=== PATIENT | female | born 1955 | race Caucasian/White ===

== ENCOUNTER 2017-04-29 15:20 | Emergency (ER) | payer OTHER | END 2017-04-29 16:03 | disposition left against medical advice (07) | LOC: UCCORT 15:20 | DX: M25.551 Pain in right hip (principal); Z53.21 Procedure and treatment not carried out due to patient leaving prior to being seen by health care provider ==

== ENCOUNTER 2017-04-29 16:13 | Emergency (ER) | payer OTHER ==
[2017-04-29 16:20] VITALS: BP 134/65
--- NOTE | 2017-04-29 16:51 | UC ---
Hip/Pelvis Pain - HPI Summary HPI Summary: 61 yo female with right hip pain x 1 month no fall leg feels like it may buckle - History Of Current Complaint Chief Complaint: UCLowerExtremity Stated Complaint: RIGHT HIP PAIN Time Seen by Provider: 04/29/17 16:41 Hx Obtained From: Patient Onset/Duration: Gradual Onset, Lasting Weeks Timing: Constant Severity Initially: Severe Severity Currently: Severe Pain Intensity: 10 Pain Scale Used: 0-10 Numeric Location: Discrete At: Character Of Pain: Sharp, Aching Aggravating Factor(s): Movement, Weight Bearing Alleviating Factor(s): Rest Associated Signs And Symptoms: Positive: Negative - Allergies/Home Medications Allergies/Adverse Reactions: Allergies Allergy/AdvReac Type Severity Reaction Status Date / Time Acetaminophen [From Percocet] Allergy Itching Verified 04/29/17 16:20 Carisoprodol [From Soma] Allergy Itching Verified 04/29/17 16:20 Iodinated Contrast Media Allergy Unknown Verified 04/29/17 16:20 [IV CONTRAST DYE] Reaction Details Oxycodone [From Percocet] Allergy Itching Verified 04/29/17 16:20 Home Medications: Home Medications Insulin Glargine [Basaglar Kwikpen] 100 unit SC DAILY 04/29/17 [History Confirmed 04/29/17] PMH/Surg Hx/FS Hx/Imm Hx Previously Healthy: No Endocrine History: Diabetes Cardiovascular History: Hypertension - Surgical History Surgical History: Yes Surgery Procedure, Year, and Place: gallbladder, intestional surgery as an infant, partial hyster, right knee surgery, left ulnar nerve, left carpal tunnel , x 2, thyroidectomy - Family History Known Family History: Positive: Unknown - adopted - Social History Alcohol Use: None Substance Use Type: None Substance Use Comment - Amount & Last Used: nucynta Smoking Status (MU): Former Smoker Type: Cigarettes Amount Used/How Often: ~ 1 ppd Length of Time of Smoking/Using Tobacco: started ~ age 19 Have You Smoked in the Last Year: No When Did the Patient Quit Smoking/Using Tobacco: 2011 Household Exposure Type: Cigarettes - Immunization History Most Recent Influenza Vaccination: fall 2014 Most Recent Pneumonia Vaccination: fall 2014 Review of Systems Constitutional: Negative Skin: Negative Eyes: Negative ENT: Negative Respiratory: Negative Cardiovascular: Negative Gastrointestinal: Negative Genitourinary: Negative Motor: Negative Neurovascular: Negative Musculoskeletal: Arthralgia Neurological: Negative Psychological: Negative All Other Systems Reviewed And Are Negative: Yes Physical Exam Triage Information Reviewed: Yes Appearance: Well-Appearing, No Pain Distress, Well-Nourished Vital Signs: Initial Vital Signs Temp 97.8 F 04/29/17 16:17 Pulse 75 04/29/17 16:17 Resp 17 04/29/17 16:17 BP 134/65 04/29/17 16:17 Pulse Ox 97 04/29/17 16:17 Vital Signs Reviewed: Yes Eyes: Positive: Conjunctiva Clear ENT: Positive: Hearing grossly normal. Negative: Nasal congestion, Nasal drainage, Trismus, Muffled/hoarse voice Dental: Negative: Abscess @ Neck: Positive: Supple Respiratory: Positive: Lungs clear, Normal breath sounds, No respiratory distress, No accessory muscle use Cardiovascular: Positive: RRR, No Murmur Musculoskeletal: Positive: ROM Limited @ - right hip Neurological: Positive: Alert Psychological Exam: Normal Skin Exam: Normal Hip Injury Course/Dx - Differential Dx/Diagnosis Provider Diagnoses: right hip DJD Discharge - Discharge Plan Condition: Stable Disposition: HOME Prescriptions: Naproxen Sodium [Naproxen Sodium 500 MG TAB] 500 mg PO BID PRN #30 tab PRN Reason: Pain Patient Education Materials: Hip Pain (ED), Arthritis (ED) Referrals: Silvia Dallas MD [Medical Doctor] - As Soon As Possible (call and set up an appt )
--- NOTE | 2017-04-29 17:13 | RAD ---
INDICATION: Right hip pain. COMPARISON: Comparison is made with a prior x-ray study of the pelvis and left hip from June 22, 2010. TECHNIQUE: An AP view of the pelvis and frontal and lateral views of the right hip were obtained. FINDINGS: The bones are in normal alignment. No fracture is seen. There is moderate to severe osteoarthritic change in the right hip which is progressed from the prior exam. There is mild osteoarthritic change in the left hip. IMPRESSION: MODERATE TO SEVERE OSTEOARTHRITIC CHANGE IN THE RIGHT HIP.
== END 2017-04-29 17:21 | disposition home or self-care (01) ==
LOC: UCCORT 16:13
DX: M16.11 Unilateral primary osteoarthritis, right hip (principal); M25.551 Pain in right hip; E11.9 Type 2 diabetes mellitus without complications; Z79.4 Long term (current) use of insulin; I10 Essential (primary) hypertension; Z90.49 Acquired absence of other specified parts of digestive tract; Z90.711 Acquired absence of uterus with remaining cervical stump; E89.0 Postprocedural hypothyroidism; Z88.5 Allergy status to narcotic agent; Z88.6 Allergy status to analgesic agent; Z91.041 Radiographic dye allergy status; Z87.891 Personal history of nicotine dependence
CPT/HCPCS: 99212; G0463

== ENCOUNTER 2018-06-08 07:58 | Inpatient (IN) | payer OTHER ==
--- NOTE | 2018-05-26 16:43 | HP ---
HISTORY AND PHYSICAL: DATE OF ADMISSION: 06/08/18 Upcoming hospital admission 06/08/18 for right total hip replacement. CHIEF COMPLAINT: Right hip region pain. HISTORY OF PRESENT ILLNESS: This nice 62-year-old woman with adult onset of diabetes and chronic pain and several other medical problems, who has had severe arthritis of the right hip with pain, marked limitation of walking distance, she goes less than a block, marked difficulty with stairs and difficulty with sleep over the past year. We had surgery scheduled for 3 to 4 weeks ago, this was canceled because of multiple skin lesions, they were in a weeping stage and not healed. She has been at home keeping these cleaned with soap and water. She knows things healed slowly for her because of her diabetes. Her right total hip replacement has been recommended. PAST MEDICAL HISTORY: She is cared for by Dr. Suresh, [facility]. She has had asthma and possibly COPD, arthritis, type 2 diabetes, diverticulitis, hypothyroid, anxiety, and depression. PAST SURGICAL HISTORY: Cholecystectomy, , left elbow ulnar nerve transposition, knee meniscus surgery, thyroid surgery in 1977, and an intestinal blockage, infancy. DAILY MEDICATIONS: Include: 1. Insulin when needed. 2. Gabapentin 600 mg 3 times a day. 3. Vitamin D3 5000 once a day. 4. Voltaren cream to the knee twice daily. 5. Prazosin 1 mg each at bedtime. 6. Lasix 20 mg each at bedtime. 7. Thyroid replacement, the total dosage is 225 mcg per day. 8. Duloxetine 30 mg each day. 9. Vitamin B12. 10. Magnesium oxide. 11. Metformin 500 mg each day. 12. Ranitidine 150 mg each day. 13. The total dosage on the metformin is 500 mg once a day and a 1000 mg once a day. 14. Alprazolam 1 mg every 8 hours as needed for anxiety. 15. Dicyclomine 10 mg 1 to 2 twice daily. 16. Lovastatin 40 mg each at bedtime. 17. Methocarbamol 500 mg once twice a day. 18. Naproxen 500 mg twice a day. 19. Ventolin inhaler as needed. 20. Tylenol Arthritis. ALLERGIES: SOMA, IODINE, CORTISONE, CYCLOBENZAPRINE, and OXYCODONE. FAMILY HISTORY: Not known to the patient. She was adopted. SOCIAL HISTORY: Lives with family, however, recently a 17-year-old granddaughter, who lived with her for many years, left to live with her former and this was very depressing for the patient. The patient is disabled and retired data control assistant for 17 years. Of note, quit smoking 4 years ago. No alcohol use. Occasional walker. She enjoys cooking and cross stitch. She is right handed. REVIEW OF SYSTEMS: Positive for chronic back pain, diarrhea, fatigue, depression, and anxiety. PHYSICAL EXAMINATION GENERAL: She is overweight. She is not acutely distressed at rest. She has antalgic gait on the right. The cranial nerves are grossly intact. HEENT: Tongue is midline. LUNGS: Clear bilaterally. HEART: Regular. S1, S2 normal. No murmurs or gallops. ABDOMEN: Round, soft, nontender. There is no organomegaly. EXTREMITIES: The right hip has painful range of motion with painful straight leg raising, painful sideline leg raising. Right hip flexion limited to 80 degrees with pain external rotation, 20 degrees with pain internal rotation, neutral was pain. The foot pulse intact. DIAGNOSTIC STUDIES: Radiographs show severe arthritis of the right hip. IMPRESSION: Severe arthritis of the right hip. The patient has multiple medical problems. PLAN: Right total hip replacement. [id number]/[facility] #: [id number] [facility] CENT[facility]ad[facility]
[~2018-06-08 07:58] MED LIST: Buffered Lidocaine 0.9% SYRIN* 5 ML/SYR SYRINGE INTRADERM ONE; Famotidine IV* 10 MG/ML 2 ML (20 mg) IV ONE
--- OUTSIDE RECORDS SUMMARY | 2018-06-08 08:03 | XMS REPORT ---
:1955 External Reference #:[id number] Author Organization [facility] Address [address] [place] [address] Phone [phone] Care Team Providers Name Role Phone Lee Suresh DO Primary Care Physician Unavailable Payers Type Date Identification Numbers Payment Provider Subscriber Commercial Policy Number: [id number] [place] Saima Cheek PayID: [id number] [address] [place] [id number] Problems Date Description Provider Status Onset: 05/12/2017 Localized, primary osteoarthritis of the Silvia Dallas MD Active pelvic region and thigh Family History Date Family Member(s) Problem(s) Comments General No Current Problems Social History Type Date Description Comments Marital Status Marital Status 2 Times Lives With Occupation Disabled Cigarette Use Former Cigarette Smoker ETOH Use Denies alcohol use Smoking Patient is a former smoker Recreational Drug Use Denies Drug Use Daily Caffeine Consumes on average 2 cups of regular coffee per day Daily Caffeine Consumes on average 2 sodas per day Exercise Type/Frequency Exercises sporadically Allergies, Adverse Reactions, Alerts Date Description Reaction Status Severity Comments 05/12/2017 Soma active 05/12/2017 Iodine active 05/12/2017 Cortisone active 05/12/2017 Cyclobenzaprine active 07/08/2017 Oxycodone active 07/08/2017 Acetaminophen active Medications Medication Date Status Form Strength Qnty SIG Indications Ordering Provider Shower Chair 05/05/ Active Misc 1unit Dirk 2017 s Kaelyn Cespedes Wheeled Walker 04/14/ Active M16.11 Dirk With Brakes And A Cheko Hilario M.D. / Active Solution 100Unit/ML 150 units Unknown 0000 Pen-Inject once daily Gabapentin / Active Tablets 600mg 1 by Unknown 0000 mouth 3 times daily Vitamin D3 / Active Tablets 5000 one by Unknown 0000 mouth once daily Diclofenac Sodium / Active Gel 1% apply 2 Unknown 0000 grams toknee twice daily Prazosin HCL / Active Capsules 1mg 1 tab by Unknown 0000 mouth every night at bedtime Furosemide / Active Tablets 20mg 1 by Unknown 0000 mouth every day prn Levothyroxine / Active Tablets 50mcg 1 by Unknown Sodium 0000 mouth every day with 200 mcg Duloxetine HCL / Active Caps DR 30mg take 2 Unknown 0000 Part capsule by mouth every day Vitamin B12 / Active Tablets ER 1000mcg 1 by Unknown 0000 mouth every day Magnesium Oxide / Active Tablets 250mg 2 by Unknown -MG Supplement 0000 mouth every day Ra / Active Tablets ER 1 tab Unknown B-Complex/Vitamin 0000 twice C CR daily Metformin HCL / Active Tablets 500mg 1 by Unknown 0000 mouth every day Ranitidine HCL / Active Capsules 150mg 1 by Unknown 0000 mouth everyday Levothyroxine / Active Tablets 200mcg take 1 Unknown Sodium 0000 tablet everyday with the 25 mcg Metformin HCL / Active Tablets 1000mg 1 by Unknown 0000 mouth twice a day Alprazolam / Active Tablets 1mg take 1 Unknown 0000 tab eery 8 hours prn anxiety Dicyclomine HCL / Active Capsules 10mg 1-2 caps Unknown 0000 twice daily w MDD 3 Lovastatin / Active Tablets 40mg take one Unknown 0000 tablet by mouth at bedtime Methocarbamol / Active Tablets 500mg 1 by Unknown 0000 mouth twice a day Naproxen DR / Active Tablets DR 500mg take 1 Unknown 0000 tablet twice a day as needed for pain Ibuprofen / Active Tablets 800mg Unknown 0000 Ventolin HFA / Active Aerosol 108(90Base Unknown 0000 ) mcg/Act Tylenol Arthritis / Active Tablets ER 650mg prn Unknown Pain 0000 Levocetirizine / Hx Tablets 5mg 1 by Unknown Dihydrochloride 0000 - mouth 12/30/ every day 2018 Betamethasone / Hx Ointment apply Unknown Dipropionate 0000 - twice daily to 2018 affected areas Nucynta ER 00/ Hx Tablets ER 50mg 1 by Unknown 0000 - 12HR mouth 8 2018 hour prn Insulin Glargine / Hx 10 u sc Unknown 0000 - daily 2017 Medications Administered in Office Medication Date Status Form Strength Qnty SIG Indications Ordering Provider Inj, Administered Injection Shaka Flowers Regadenoson, 018 Kaelyn [place]isle 0.1 MG Technetium TC Administered Injection Shaka D. 99M 018 Kaelyn Carlisle Tetrofosmin, Per Unit Dose Up To 40 Millicuries Vital Signs Date Vital Result Comment 05/26/2018 Height 64 inches 5'4" Weight 251.00 lb BP Systolic 132 mmHg BP Diastolic 74 mmHg Respiratory Rate 18 /min Body Temperature 97.1 F Pain Level 8 BMI (Body Mass Index) 43.1 kg/m2 04/14/2018 Height 64 inches 5'4" Weight 263.00 lb BP Systolic 128 mmHg BP Diastolic 80 mmHg Respiratory Rate 20 /min Body Temperature 97.4 F Pain Level 10 BMI (Body Mass Index) 45.1 kg/m2 03/31/2018 Height 64 inches 5'4" Weight 242.00 lb w/o shoes Heart Rate 72 /min BP Systolic 100 mmHg Rue, lg cuff BP Diastolic 74 mmHg Rue, lg cuff BP Systolic Sitting 114 mmHg Lue, lg cuff BP Diastolic Sitting 74 mmHg Lue, lg cuff BP Systolic Standing 104 mmHg Lue BP Diastolic Standing 80 mmHg Lue Respiratory Rate 16 /min BMI (Body Mass Index) 41.5 kg/m2 01/11/2018 Height 64 inches 5'4" Weight 249.00 lb BP Systolic 120 mmHg BP Diastolic 68 mmHg Respiratory Rate 20 /min Pain Level 2 BMI (Body Mass Index) 42.7 kg/m2 11/09/2017 Height 64 inches 5'4" Heart Rate 75 /min BP Systolic 116 mmHg BP Diastolic 70 mmHg Respiratory Rate 17 /min Body Temperature 97.6 F Pain Level 2 06/05/2017 Height 64 inches 5'4" Weight 249.00 lb Heart Rate 83 /min BP Systolic 109 mmHg BP Diastolic 65 mmHg BMI (Body Mass Index) 42.7 kg/m2 05/12/2017 Height 64 inches 5'4" Weight 249.00 lb Heart Rate 76 /min BP Systolic 150 mmHg BP Diastolic 79 mmHg Body Temperature 97.1 F BMI (Body Mass Index) 42.7 kg/m2 Results Test Date Test Result H/L Range Note Basic Metabolic Panel 04/14/2018 Sodium 138 mmol/L 135-145 Potassium 4.6 mmol/L 3.5-5.0 Chloride 101 mmol/L 101-111 Co2 Carbon Dioxide 26 mmol/L 22-32 Anion Gap 11 mmol/L 2-11 Glucose 117 mg/dL High 70-100 Blood Urea Nitrogen 24 mg/dL 6-24 Creatinine 0.92 mg/dL 0.51-0.95 BUN/Creatinine Ratio 26.1 High 8-20 Calcium 9.8 mg/dL 8.6-10.3 Egfr Non- 61.7 >60 Egfr 74.6 >60 1 Inr/Protime 04/14/2018 Inr 0.88 0.77-1.02 Laboratory test finding 04/14/2018 Partial Thrombo Time 35.9 seconds 26.0 -36.3 PTT Type & Screen 04/14/2018 Patient Blood Type O Positive Antibody Screen NEGATIVE Laboratory test finding 04/14/2018 TSH (Thyroid Stim 29.02 mcIU/mL High 0.34-5.60 Horm) 1 Because ethnic data is not always readily available, this report includes an eGFR for both -Americans and non- Americans. The National Kidney Disease Education Program (NKDEP) does not endorse the use of the MDRD equation for patients that are not between the ages of 18 and 70, are , have extremes of body size, muscle mass, or nutritional status, or are non- or non-. According to the National Kidney Foundation, irrespective of diagnosis, the stage of the disease is based on the level of kidney function: Stage Description GFR(mL/min/1.73 m(2)) 1 Kidney damage with normal or decreased GFR 90 2 Kidney damage with mild decrease in GFR 60-89 3 Moderate decrease in GFR 30-59 4 Severe decrease in GFR 15-29 5 Kidney failure <15 (or dialysis) Procedures Date CPT Code Description Status 04/16/2018 90787 Stress Test Completed 04/16/2018 00233 Myocardial Perfusion Imaging Tomographic (Spect) Completed Multiple Studies 04/06/2018 83834 ECHO Transthoracic, Real-Time 2D With Doppler And Color Completed Flow 04/06/2018 18250 ECHO Transthoracic, Real-Time 2D With Doppler And Color Completed Flow 03/31/2018 49523 EKG Tracing & Interpretation Completed Encounters Type Date Location Provider CPT E/M Dx Office Visit 03/31/2018 [facility] [place], [address]809 Z01.810 2:00p Leonardo Art R06.02 M16.11 Office Visit 01/11/2018 2:15p [facility] Cesped[facility] M.D. 46462 M16.11 [facility] Office Visit 11/09/2017 1:30p [facility] Cesped[facility] M.D. 80493 M17.11 [facility] M17.12 Office Visit 06/05/2017 1:30p [facility] Dia Orr M.D. 41847 M16.11 [facility] M25.551 Office Visit 05/12/2017 1:30p [facility] [place] [address] M16.11 [facility] Plan of Care Future Appointment(s):07/07/2018 2:15 pm - Vikram Cespedes M.D. at [facility]05/26/2018 - Vikram Cespedes M.D.M16.11 Unilateral primary osteoarthritis, right hipFollow up:Follow up: Right total hip 06/08/18
[2018-06-08] MEDS ORDERED: Famotidine IV* 10 MG/ML 2 ML (20 mg) ONE (08:11)
[2018-06-08] MEDS ORDERED: ceFAZolin 2 GM in NS PREMIX(*) 2 GM/100 ML BAG IVPB ONE (08:11)
[2018-06-08] MEDS ORDERED: fentaNYL* 50 MCG/ML 2 ML VIAL (100 MCG VIAL) ONE ×3 (08:30→11:21)
[2018-06-08] MEDS ORDERED: Midazolam* 1 MG/ML 5 ML VIAL (5 MG) ONE (08:30)
[2018-06-08] MEDS ORDERED: KETAMINE HCL* 50 MG/ML 10 ML VIAL ONE (09:42)
[2018-06-08] MEDS ORDERED: DiMENhydriNATE IV* 50 MG/ML VIAL ONE (10:12)
[2018-06-08] MEDS ORDERED: Succinylcholine* 20 MG/ML 10 ML VIAL ONE (10:12)
[2018-06-08] MEDS ORDERED: EPHEDrine (Pressors)* 50 MG/ML VIAL ONE (10:12)
[2018-06-08] MEDS ORDERED: Ketorolac INJ* 30 MG/ML 1 ML VIAL ONE (10:12)
[2018-06-08] MEDS ORDERED: Propofol* 10 MG/ML 20 ML BTL IV PUSH ONE (10:12)
[2018-06-08] MEDS ORDERED: Ondansetron INJ* 2 MG/ML VIAL ONE (10:12)
[2018-06-08] MEDS ORDERED: Acetaminophen IV 1GM/100ML * 1,000 MG/100 ML VIAL IVPB ONE (11:17)
[2018-06-08] MEDS ORDERED: DiMENhydriNATE IV* 50 MG/ML VIAL IV PUSH PRN (11:17)
[2018-06-08] MEDS ORDERED: diPHENhydraMINE IV* 50 MG/ML 1 ml VIAL (BENADRYL) IV PRN ×2 (11:17→13:05)
[2018-06-08] MEDS ORDERED: Naloxone* 0.4 MG/ML 1 ML VIAL IV PRN (11:17)
[2018-06-08] MEDS ORDERED: hydrALAZINE IV* 20 MG/ML VIAL ONE (11:19)
[2018-06-08] MEDS ORDERED: Gabapentin CAP(*) 300 MG PO ONE (11:27)
[2018-06-08] MEDS ORDERED: Bupivacaine 0.25% EPI 200,000* 30 ML SDV ONE (12:37)
[2018-06-08] MEDS ORDERED: Ondansetron ODT TAB* 4 MG PO PRN (13:05)
[2018-06-08] MEDS ORDERED: Morphine INJ* 4 MG/ML 1 ML SYRINGE (NEW SYRINGE VERSION) IV PRN (13:05)
[2018-06-08] MEDS ORDERED: Cyclobenzaprine TAB* 10 MG PO PRN (13:05)
[2018-06-08] MEDS ORDERED: Magnesium Hydroxide LIQ* 30 ML UDC PO PRN (13:05)
[2018-06-08] MEDS ORDERED: Ondansetron INJ* 2 MG/ML VIAL IV PRN (13:05)
[2018-06-08] MEDS ORDERED: diPHENhydraMINE PO* 25 MG PO PRN (13:05)
[2018-06-08] MEDS ORDERED: Acetaminophen IV 1GM/100ML * 100 ML ONE (13:10)
[2018-06-08] MEDS ORDERED: Ketorolac INJ* 15 MG/ML 1 ML VIAL IV PUSH PRN (13:33)
[2018-06-08] MEDS ORDERED: Gabapentin CAP(*) 300 MG ONE (13:34)
[2018-06-08] MEDS ORDERED: HYDROmorphone INJ1* 1 MG/ML SYRINGE ONE (13:34)
[2018-06-08] MEDS: HYDROmorphone INJ1* 1 MG/ML SYRINGE IV PRN ×2 (13:36→13:41)
--- NOTE | 2018-06-08 13:51 | RAD ---
Indication: Right total hip replacement. Single view of the pelvis demonstrates right hip replacement in satisfactory position. No loosening is noted. IMPRESSION: Right hip replacement in satisfactory position.
[2018-06-08] MEDS ORDERED: Dextrose 50% Syringe 50 ML* 25 GM/50 ML SYRINGE IV PUSH PRN (14:18)
[2018-06-08] MEDS ORDERED: Albuterol/Ipratropium NEB.SOL* Albuterol 2.5 MG/Ipratropium 0.5 MG 3 ML INH PRN (14:19)
[2018-06-08] MEDS: Gabapentin CAP(*) 300 MG PO SCH ×2 (16:15→20:21)
[2018-06-08] MEDS: traMADol TAB* 50 MG PO SCH ×2 (16:16→20:20)
[2018-06-08] MEDS: ceFAZolin 1 GM in Dextrose (*) 1 GM/50 ML BAG IVPB SCH (16:16)
[2018-06-08] MEDS: Insulin GLARGINE(*) 1 UNITS UNIT SUBCUT SCH (17:02)
[2018-06-08] MEDS: Insulin LISPRO* 1 UNITS UNIT SUBCUT SCH ×2 (17:03→21:32)
[2018-06-08] MEDS: Acetaminophen TAB* 325 MG PO SCH (20:19)
[2018-06-08] MEDS: Docusate CAP* 100 MG PO SCH (20:20)
[2018-06-08] MEDS: Famotidine TAB* 20 MG PO SCH (20:20)
[2018-06-08] MEDS: Methocarbamol TAB* 500 MG PO SCH (20:20)
[2018-06-08] MEDS: metFORMIN* 1,000 MG TAB PO SCH (20:21)
[2018-06-08] MEDS: metFORMIN* 500 MG TAB PO SCH (20:21)
[2018-06-08] MEDS: Magnesium Hydroxide LIQ* 30 ML UDC PO SCH (20:22)
[2018-06-08] MEDS: ALPRAZolam TAB* 0.5 MG PO SCH (21:18)
--- NOTE | 2018-06-08 21:53 | CONS ---
CC: Dr. Suresh * CONSULTATION REPORT: DATE OF CONSULT: 06/08/18 PRIMARY CARE PROVIDER: Dr. Suresh. SERVICE REQUESTING CONSULTATION: Orthopedic Surgery. REASON FOR CONSULT: Medical co-management. HISTORY OF PRESENT ILLNESS: This is a 62-year-old female with past medical history of insulin-dependent type 2 diabetes and COPD, who failed conservative management for treatment of her right hip pain, underwent a right total hip arthroplasty today with Dr. Cespedes without incident. She was seen in the PACU status post the procedure. She had no complaints, although she was still notably tired; however, able to interact with history and physical. She is currently in no pain and has no chest pain, shortness of breath, nausea, vomiting, lightheadedness. She has no complaints, but would like to return to sleep. She did confirm a number of medications that were listed in her history. PAST MEDICAL HISTORY: Includes: 1. Insulin-dependent type 2 diabetes mellitus. 2. RODRIGUEZ. 3. COPD, not on home oxygen, no past hospitalizations for COPD. 4. Hypothyroidism. 5. Anxiety. 6. Depression. 7. Obesity. 8. Tobacco abuse disorder. 9. Hyperlipidemia. 10. Hypertension. 11. Chronic back pain. 12. Vertigo. PAST SURGICAL HISTORY: Thyroidectomy, x2, knee meniscus surgery on the right, cholecystectomy, ulnar nerve transposition, carpal tunnel release, hysterectomy due to endometriosis. CURRENT MEDICATIONS: Include: 1. Acetaminophen. 2. Dulcolax suppository. 3. Cefazolin. 4. Benadryl. 5. Duloxetine. 6. Docusate. 7. Pepcid IV. 8. Gabapentin. 9. Dilaudid. 10. Ketorolac. 11. Lactated Ringer's. 12. Lovastatin. 13. Magnesium hydroxide. 14. Metformin. 15. Robaxin. 16. Morphine sulfate. 17. Alprazolam. 18. Insulin glargine 145 units in the evening. 19. Zofran. 20. Rivaroxaban. 21. Ranitidine. 22. Tramadol. ALLERGIES: CARISOPRODOL, CORTISONE, IODINE, OXYCODONE, and CYCLOBENZAPRINE. FAMILY HISTORY: Adopted, knows very little about her biological parents. SOCIAL HISTORY: Quit tobacco approximately 5 years prior, smoked 1 to 1-1/2 packs per year for approximately 40 years. No alcohol. No illicits. REVIEW OF SYSTEMS: Negative for all systems reviewed. PHYSICAL EXAM: Vitals: When seen by this author; 135/66, heart rate 83, respiratory rate was 14, and she was 94% on 3.5 L. Obese female, sitting at 45 degrees, sleepy; however, wakes easily. Oropharynx is clear. Has moist mucous membranes. Sclerae are anicteric. Has non-elevated JVD. Regular rate and rhythm. No murmurs, rubs, or gallops. Lungs are clear to auscultation throughout. Abdomen: Soft, nontender, nondistended. Extremities are warm and well perfused. Neurovascularly intact. She is alert and oriented x3. ASSESSMENT AND PLAN: This is a 62-year-old female with past medical history as outlined in the history of present illness including insulin-dependent type 2 diabetes mellitus, on high dose glargine; chronic obstructive pulmonary disease ; anxiety; depression; tobacco abuse disorder, postop day 0 right FRANK. 1. Right FRANK. Postop day 0. Care per primary team including pain regimen and anticoagulation for which Xarelto has been selected. 2. Insulin-dependent type 2 diabetes. I agree with restarting long acting Basaglar this evening. I have added fingersticks with meals in the evening as well as sliding scale insulin for management in the hospital. Continue metformin as you have already ordered. 3. Chronic obstructive pulmonary disease. Only on albuterol as an outpatient. No history of exacerbations requiring hospital stay. Careful attention. Given her postoperative status, I have ordered DuoNeb should she require them. 4. Hypothyroidism. Continue levothyroxine, which was ordered. 5. Anxiety. Continue Ativan, which was ordered. 6. Tobacco abuse disorder is resolved. No need for nicotine replacement therapy. 7. DVT prophylaxis: Xarelto as indicated above. Thank you for this consultation. We will continue to follow. [id number]/[facility] #: [id number] NELIDA
[2018-06-09] MEDS: traMADol TAB* 50 MG PO SCH ×4 (02:02→22:19)
[2018-06-09] MEDS: ceFAZolin 1 GM in Dextrose (*) 1 GM/50 ML BAG IVPB SCH ×2 (02:02→09:44)
--- NOTE | 2018-06-09 02:43 | OP ---
CC: Dr. Suresh, [facility].* DATE OF OPERATION: 06/08/18 - ROOM #346 DATE OF : 53 SURGICAL CARE: Right hip. SURGEON: Vikram Cespedes MD CONSUMER MARKETING MANAGER: 1. MELANIE Carpenter, judicial assistant. 2. Jackie Sahu, technology trainer. ANESTHESIOLOGIST: Dr. Amanda Lezama. ANESTHESIA: Endotracheal tube general. PRE-OP DIAGNOSIS: Severe arthritis of the right hip. POST-OP DIAGNOSIS: Severe arthritis of the right hip. OPERATIVE PROCEDURE: Right total hip replacement. COMPONENTS UTILIZED: Sandee Continuum cup 48-mm outer diameter, cluster holes with 1 screw superiorly and an elevated liner for a 32 head. The elevation was located posteriorly. On the femoral side an M/L taper standard reduced neck size 7.5 and the cobalt-chrome head is 32 mm +0. COMPLICATIONS: There were no complications. DRAINS: There were no drains. BLOOD LOSS: 250 mL. REPLACEMENT: Crystalloid fluids. At the end of the case the hip was infiltrated with 0.25% Marcaine with epinephrine 30 mL, 10 mL subfascial and 20 mL between the skin and the fascia. INDICATIONS: Severe arthritis of the hip. She has been very disabled with pain and limited walking abilities and the hip replacement was recommended. DESCRIPTION OF PROCEDURE: The patient was brought to the operating room and placed on the operating room table in a supine position. Following the administration of the anesthetic a Hsu Catheter was inserted and the patient was then placed in the left lateral position with a folded towel under the downside left greater trochanter. The pelvis was secured over the ASIS, in the sacrum with the hip positioner. The groin was sealed off and the right hip, right lower extremity then prepped preliminary with chlorhexidine in the region of the surgical care and then a formal prep from the right flank to the ankle with ChloraPrep. After prepping, draping, and carefully sealing off, we did our universal protocol time out confirming Saima Cheek and our plan for right total hip replacement. We all agreed and we proceeded. The hip was approached with a curving posterior lateral skin incision going from the greater trochanter distally for 2.5 inches and curving proximally and posteriorly for 3.5 to 4 inches. The skin and subcu divided down to the deep fascia. Careful hemostasis was checked and achieved throughout this case utilizing electrocautery. The fascia chano was opened in line with the skin incision. The Charnley retractor was inserted with a superficial blade anteriorly and a deeper blade posteriorly. The gluteus medius and minimus were retracted anteriorly with a blunt Hohmann retractor. The hip was entered from the superior aspect of the piriformis tendon and the piriformis and conjoint tendons were released from their piriformis fossa insertions as we exposed the hip. Careful posterior approach was done with careful hemostasis. The hip had clear goldish synovial fluid. The hip was dislocated without difficulty. The femoral neck was marked about a fingerbreadth proximal to the lesser trochanter with a neck cutting guide and the head and neck were then removed. She had a secured osteophyte completely around the femoral head enveloping the superior neck. On the acetabular side we removed labrum posteriorly, superiorly, and anteriorly. Sharp Hohmann retractors were placed posteriorly and anteriorly, blunt Hohmann retractor superiorly and inferiorly. The medial osteophyte was removed with osteotomes and then the Charnley curette and rongeur and the acetabulum was reamed 45 through 48 and at 48 we had nice bleeding subchondral and cancellous bone. The acetabulum was cleaned several times with pulse saline and dried. The 48 Continuum cup was opened, it was impacted into position in 45 degrees of abduction, 20 degrees of anteversion, and it bottomed out nicely. A single screw was placed superiorly and an elevated liner, E-Poly type, with the elevation posteriorly was put into position. The acetabulum was packed with a saline soaked lap sponge and on the femoral side we used the canal finder and trochanteric reamer. Broaching was done 4 through 7.5. At 7.5 we had a nice tight fit. A trial reduction was done with a standard neck and a 0 head and I thought this was too tight, so we elected to use the 7.5 standard M/L taper reduced neck prosthesis. This was impacted into position in approximately 15 to 20 degrees of anteversion. A trial reduction was done with a +0 32 mm head and I thought the soft tissue tension was proper, so this was chosen. The neck was clean, the head was impacted on the clean neck and the hip reduced without difficulty. During closure we used saline irrigation several times, the soft tissues were swept with clean lap sponges posteriorly and inferiorly and throughout the wound. The fascia chano closed with interrupted #1 poly Vicryl in [id number] fashion. The fascia more proximally closed with 0- Polysorb. The deep and superficial subcu closed with 0 and then 2-0 Polysorb and then crescencio on the skin. The surgery was infiltrated with Marcaine 0.25% with epinephrine 10 mL deep to the fascia and 20 mL superficial to the fascia and the skin closed with crescencio. We avoided iodine at her skin during this case and the dressing was done with 0-forearm gauze and ABD pads and paper tape. The patient was returned to the supine position into the recovery room in stable and satisfactory condition having tolerated the procedure very well. [id number]/CPS #: [id number] NELIDA
[2018-06-09] MEDS: Acetaminophen TAB* 325 MG PO SCH ×3 (05:00→22:19)
[2018-06-09 05:44] LABS: Hematocrit 30 % (35-47); Hemoglobin 9.8 g/dl (12.0-16.0); Mean Platelet Volume 8.4 um3 (7.4-10.4); Platelet Count 228 10^3/ul (150-450)
[2018-06-09 06:20] LABS: EGFR Non-African American 75.7 (>60)
--- NOTE | 2018-06-09 07:10 | PN ---
Progress Note - Progress Note Date of Service: 06/09/18 Note: POD 1 98.6. VSStable. Xray right hip satisfactory. Hct 30%. Lytes. Hospitalist consult on board. Xalelto 10 mg for 5 diays, then switching to ASA 325 mg. Awake, alert, cooperative, breathing easily. Her pre-op right hip pain is relieved and some aching is present. Able to lift right knee and internally (a little) and externally rotate the right hip. Ankles moving up, down, in and out bilaterally. Imp: Stable. Acute blood loss anemia. Plans: Up with walker, drinking, and incentive spirometer. Goal: Home 06/10
[2018-06-09] MEDS: Insulin LISPRO* 1 UNITS UNIT SUBCUT SCH ×4 (07:20→22:36)
[2018-06-09] MEDS: Magnesium Hydroxide LIQ* 30 ML UDC PO SCH ×2 (09:47→22:20)
[2018-06-09] MEDS: metFORMIN* 1,000 MG TAB PO SCH ×2 (09:48→22:18)
[2018-06-09] MEDS: Cholecalciferol TAB* 1000 UNITS PO SCH (09:48)
[2018-06-09] MEDS: Methocarbamol TAB* 500 MG PO SCH ×2 (09:48→22:18)
[2018-06-09] MEDS: Atorvastatin* 10 MG TAB PO SCH (09:48)
[2018-06-09] MEDS: Docusate CAP* 100 MG PO SCH ×2 (09:48→22:19)
[2018-06-09] MEDS: DULoxetine DR CAP* 30 MG CAP.DR PO SCH (09:49)
[2018-06-09] MEDS: Famotidine TAB* 20 MG PO SCH ×2 (09:49→22:20)
[2018-06-09] MEDS: ALPRAZolam TAB* 0.5 MG PO SCH ×2 (09:49→22:17)
[2018-06-09] MEDS: Gabapentin CAP(*) 300 MG PO SCH ×3 (09:49→22:18)
[2018-06-09] MEDS: Rivaroxaban TAB(*) 10 MG PO SCH (12:08)
--- NOTE | 2018-06-09 16:24 | PN ---
Subjective Date of Service: 06/09/18 Interval History: Pain increased today since yesterday but better controlled this afternoon. [place] LH when ambulating today but no CP/SOB Put on O2 but 94% when titrated off by this author +mild non-productive cough Objective Active Medications: Acetaminophen (Tylenol Tab*) 975 mg PO Q8H [facility] Last Admin: 06/09/18 12:07 Dose: 975 mg Albuterol/Ipratropium (Duoneb (Albuterol 2.5 Mg/Ipratropium 0.5 Mg)) 1 neb INH Q6H PRN PRN Reason: SOB/WHEEZING Alprazolam (Xanax Tab*) 1 mg PO BID [facility] Last Admin: 06/09/18 09:49 Dose: 1 mg Atorvastatin Calcium (Lipitor*) 10 mg PO QAM [facility]; Protocol Last Admin: 06/09/18 09:48 Dose: 10 mg Bisacodyl (Dulcolax Supp*) 10 mg MD DAILY PRN PRN Reason: constipation Cholecalciferol (Vitamin D Tab*) [facility] [place] Last Admin: 06/09/18 09:48 Dose: 5,000 units Dextrose (D50w Syringe 50 Ml*) 12.5 gm IV PUSH .FOR FS < 60 - SS PRN PRN Reason: FS < 60 Diphenhydramine HCl (Benadryl Iv*) 25 mg IV Q6H PRN PRN Reason: itching Diphenhydramine HCl (Benadryl Po*) 25 mg PO Q6H PRN PRN Reason: itching Docusate Sodium (Colace Cap*) 100 mg PO BID [facility] Last Admin: 06/09/18 09:48 Dose: 100 mg Duloxetine HCl (Cymbalta Cap*) 30 mg PO QAM [facility] Last Admin: 06/09/18 09:49 Dose: 30 mg Famotidine (Pepcid Tab*) 20 mg PO BID [facility]; Protocol Last Admin: 06/09/18 09:49 Dose: 20 mg Gabapentin (Neurontin Cap(*)) 600 mg PO TID [facility] Last Admin: 06/09/18 14:19 Dose: Not Given Lactated Ringer's (Lactated Ringers 1000 Ml Bag*) 1,000 mls @ 100 mls/hr IV PER RATE [facility] Last Admin: 06/09/18 02:04 Dose: 100 mls/hr Influenza Virus Vaccine (Fluarix *Quad* 2018-19*) 0.5 ml IM .ONCE ONE Stop: 06/10/18 09:01 Insulin Glargine (Lantus(*)) 145 units SUBCUT 1600 [facility] Last Admin: 06/08/18 17:02 Dose: 145 units Insulin Human Lispro (Humalog*) 0 units SUBCUT ACHS [facility]; Protocol Last Admin: 06/09/18 12:08 Dose: 3 units Ketorolac Tromethamine (Toradol Inj*) 15 mg IV PUSH Q6H PRN PRN Reason: PAIN - MODERATE Magnesium Hydroxide (Milk Of Magnesia Liq*) 30 ml PO BID [facility] Last Admin: 06/09/18 09:47 Dose: 30 ml Magnesium Hydroxide (Milk Of Magnesia Liq*) 30 ml PO Q6H PRN PRN Reason: constipation Metformin HCl (Glucophage*) 1,000 mg PO BID [facility] Last Admin: 06/09/18 09:48 Dose: 1,000 mg Metformin HCl (Glucophage*) 500 mg PO BEDTIME [facility] Last Admin: 06/08/18 20:21 Dose: 500 mg Methocarbamol (Robaxin Tab*) 500 mg PO BID [facility] Last Admin: 06/09/18 09:48 Dose: 500 mg Morphine Sulfate (Morphine Inj (Syringe)*) 2 mg IV Q2H PRN PRN Reason: PAIN - SEVERE Ondansetron HCl (Zofran Inj*) 4 mg IV Q6H PRN PRN Reason: nausea Ondansetron HCl (Zofran Odt Tab*) 4 mg PO Q6H PRN PRN Reason: NAUSEA Rivaroxaban (Xarelto(*)) 10 mg PO DAILY [facility] Stop: 06/13/18 23:59 Last Admin: 06/09/18 12:08 Dose: 10 mg Tramadol HCl (Ultram*) 50 mg PO Q6H [facility] Last Admin: 06/09/18 14:19 Dose: Not Given Vital Signs - 8 hr 06/09/18 06/09/18 06/09/18 09:48 09:49 09:51 Temperature Pulse Rate Respiratory 20 20 20 Rate Blood Pressure (mmHg) O2 Sat by Pulse Oximetry 06/09/18 06/09/18 06/09/18 11:52 12:09 12:10 Temperature 99.4 F Pulse Rate 102 Respiratory 16 20 20 Rate Blood Pressure 131/51 (mmHg) O2 Sat by Pulse 86 Oximetry 06/09/18 06/09/18 12:27 15:20 Temperature 99.0 F Pulse Rate 100 100 Respiratory 20 Rate Blood Pressure 123/59 (mmHg) O2 Sat by Pulse 96 97 Oximetry Oxygen Devices in Use Now: Nasal Cannula - 1.5L Appearance: obese, lying flat Eyes: No Scleral Icterus, PERRLA Ears/Nose/Mouth/Throat: NL Teeth, Lips, Gums, Clear Oropharnyx Neck: NL Appearance and Movements; NL JVP, Trachea Midline Respiratory: Symmetrical Chest Expansion and Respiratory Effort, Clear to Auscultation Cardiovascular: RRR Abdominal: NL Sounds; No Tenderness; No Distention, No Hepatosplenomegaly Lymphatic: No Cervical Adenopathy Extremities: - - right hip covered, distally NV intact Neurological: Alert and Oriented x 3 Result Diagrams: 06/09/18 05:21 06/09/18 05:21 Assess/Plan/Problems-Billing Assessment: 62 yo F IDDM, COPD, tobacco abuse s/p right FRANK - Patient Problems (1) S/P total hip arthroplasty Comment: POD 1 care per primary team pain under good control PT (2) Diabetes Comment: Glargine 145 units Lispro SS FSG qachs (3) LUIS E (obstructive sleep apnea) Comment: home CPAP in room (4) DVT prophylaxis Comment: xarelto Status and Disposition: Will continue to follow
[2018-06-09] MEDS: Insulin GLARGINE(*) 1 UNITS UNIT SUBCUT SCH (17:02)
[2018-06-09] MEDS: metFORMIN* 500 MG TAB PO SCH (22:20)
[2018-06-10] MEDS: traMADol TAB* 50 MG PO SCH ×4 (01:59→20:39)
[2018-06-10] MEDS: Acetaminophen TAB* 325 MG PO SCH ×3 (05:04→20:38)
[2018-06-10 05:37] LABS: Hematocrit 27 % (35-47); Hemoglobin 8.8 g/dl (12.0-16.0); Mean Platelet Volume 7.9 um3 (7.4-10.4); Platelet Count 202 10^3/ul (150-450)
[2018-06-10] MEDS: Insulin LISPRO* 1 UNITS UNIT SUBCUT SCH ×4 (07:16→20:40)
[2018-06-10] MEDS: Magnesium Hydroxide LIQ* 30 ML UDC PO SCH ×2 (08:13→20:37)
[2018-06-10] MEDS: Cholecalciferol TAB* 1000 UNITS PO SCH (08:13)
[2018-06-10] MEDS: metFORMIN* 1,000 MG TAB PO SCH ×2 (08:14→20:39)
[2018-06-10] MEDS: Docusate CAP* 100 MG PO SCH ×2 (08:14→20:38)
[2018-06-10] MEDS: Gabapentin CAP(*) 300 MG PO SCH ×3 (08:14→20:38)
[2018-06-10] MEDS: Famotidine TAB* 20 MG PO SCH ×2 (08:14→20:38)
[2018-06-10] MEDS: Methocarbamol TAB* 500 MG PO SCH ×2 (08:14→20:38)
[2018-06-10] MEDS: DULoxetine DR CAP* 30 MG CAP.DR PO SCH (08:14)
[2018-06-10] MEDS: Rivaroxaban TAB(*) 10 MG PO SCH (08:14)
[2018-06-10] MEDS: ALPRAZolam TAB* 0.5 MG PO SCH ×2 (08:15→20:38)
[2018-06-10] MEDS: Atorvastatin* 10 MG TAB PO SCH (08:15)
--- NOTE | 2018-06-10 10:52 | PN ---
Progress Note - Progress Note Date of Service: 06/10/18 SOAP: Subjective: []Patient was seen and examined at bedside. Pain is well controlled and she denies dysuria, CP, SOB, abd pain, nausea, dizziness. Patient states she does not feel well enough to go home today, but intends to go home tomorrow. Objective: []General: Well appearing, NAD RLE: Right hip incision CDI without surrounding erythema and without discharge. DF/PF intact. Sensation intact distally. DP2+. BL LE calves supple and nontender without erythema, edema or palpable cords Assessment: [] S/P Right total hip arthroplasty Plan: []WBAT PT/OT Continue Eliquis 10 mg x total of 5 days then ASA 325 mg for 30 days Vital Signs Temp 98.7 F 06/10/18 11:21 Pulse 98 06/10/18 11:21 Resp 17 06/10/18 11:21 BP 125/55 06/10/18 11:21 Pulse Ox 93 06/10/18 11:21 Intake & Output 06/09/18 06/10/18 06/10/18 18:59 06:59 18:59 Intake Total 2353 1160 440 Output Total 175 400 250 Balance 2178 760 190 Intake: IV Fluids 1073 ABX - CEFAZOLIN 105 LR 968 Oral 1280 1160 440 Output: Urine 175 400 250 Other: Estimated Void Medium Medium # Bowel Movements 0 # Voids 1 1 Laboratory Last Values Hgb 8.8 g/dl (12.0-16.0) L 06/10/18 05:29 Hct 27 % (35-47) L 06/10/18 05:29 Plt Count 202 10^3/ul (150-450) 06/10/18 05:29 MPV 7.9 um3 (7.4-10.4) 06/10/18 05:29 Sodium 139 mmol/L (135-145) 06/09/18 05:21 Potassium 4.2 mmol/L (3.5-5.0) 06/09/18 05:21 Chloride 105 mmol/L (101-111) 06/09/18 05:21 Carbon Dioxide 28 mmol/L (22-32) 06/09/18 05:21 Anion Gap 6 mmol/L (2-11) 06/09/18 05:21 BUN 15 mg/dL (6-24) 06/09/18 05:21 Creatinine 0.77 mg/dL (0.51-0.95) 06/09/18 05:21 Est GFR ( Amer) 91.6 (>60) 06/09/18 05:21 Est GFR (Non-Af Amer) 75.7 (>60) 06/09/18 05:21 BUN/Creatinine Ratio 19.5 (8-20) 06/09/18 05:21 Glucose 109 mg/dL (70-100) H 06/09/18 05:21 POC Glucose (mg/dL) 134 mg/dL (70-100) H 06/10/18 11:48 Calcium 8.2 mg/dL (8.6-10.3) L 06/09/18 05:21
--- NOTE | 2018-06-10 11:48 | PN ---
Subjective Date of Service: 06/10/18 Interval History: Dizzy when working with PT bur recovered quickly with rest feels improved since yesterday off oxygen Denies cough, SOB, CP, no urinary symptoms tm 100.3 once overnight Objective Active Medications: Acetaminophen (Tylenol Tab*) 975 mg PO Q8H [facility] Last Admin: 06/10/18 05:04 Dose: 975 mg Albuterol/Ipratropium (Duoneb (Albuterol 2.5 Mg/Ipratropium 0.5 Mg)) 1 neb INH Q6H PRN PRN Reason: SOB/WHEEZING Alprazolam (Xanax Tab*) 1 mg PO BID [facility] Last Admin: 06/10/18 08:15 Dose: 1 mg Atorvastatin Calcium (Lipitor*) 10 mg PO [facility]; Protocol Last Admin: 06/10/18 08:15 Dose: 10 mg Bisacodyl (Dulcolax Supp*) 10 mg SC DAILY PRN PRN Reason: constipation Cholecalciferol (Vitamin D Tab*) 5,000 units PO [facility] Last Admin: 06/10/18 08:13 Dose: 5,000 units Dextrose (D50w Syringe 50 Ml*) 12.5 gm IV PUSH .FOR FS < 60 - SS PRN PRN Reason: FS < 60 Diphenhydramine HCl (Benadryl Iv*) 25 mg IV Q6H PRN PRN Reason: itching Diphenhydramine HCl (Benadryl Po*) 25 mg PO Q6H PRN PRN Reason: itching Docusate Sodium (Colace Cap*) 100 mg PO BID [facility] Last Admin: 06/10/18 08:14 Dose: 100 mg Duloxetine HCl ([facility]alta [facility]*) [facility] Last Admin: 06/10/18 08:14 Dose: 30 mg Famotidine (Pepcid Tab*) 20 mg PO BID [facility]; Protocol Last Admin: 06/10/18 08:14 Dose: 20 mg Gabapentin (Neurontin Cap(*)) 600 mg PO TID [facility] Last Admin: 06/10/18 08:14 Dose: 600 mg Lactated Ringer's (Lactated Ringers 1000 Ml Bag*) 1,000 mls @ 100 mls/hr IV PER RATE [facility] Last Admin: 06/09/18 02:04 Dose: 100 mls/hr Insulin Glargine (Lantus(*)) 145 units SUBCUT 1600 [facility] Last Admin: 06/09/18 17:02 Dose: 145 units Insulin Human Lispro (Humalog*) 0 units SUBCUT ACHS [facility]; Protocol Last Admin: 06/10/18 07:16 Dose: Not Given Ketorolac Tromethamine (Toradol Inj*) 15 mg IV PUSH Q6H PRN PRN Reason: PAIN - MODERATE Magnesium Hydroxide (Milk Of Magnesia Liq*) 30 ml PO BID [facility] Last Admin: 06/10/18 08:13 Dose: 30 ml Magnesium Hydroxide (Milk Of Magnesia Liq*) 30 ml PO Q6H PRN PRN Reason: constipation Metformin HCl (Glucophage*) 1,000 mg PO BID [facility] Last Admin: 06/10/18 08:14 Dose: 1,000 mg Metformin HCl (Glucophage*) 500 mg PO BEDTIME [facility] Last Admin: 06/09/18 22:20 Dose: 500 mg Methocarbamol (Robaxin Tab*) 500 mg PO BID [facility] Last Admin: 06/10/18 08:14 Dose: 500 mg Morphine Sulfate (Morphine Inj (Syringe)*) 2 mg IV Q2H PRN PRN Reason: PAIN - SEVERE Ondansetron HCl (Zofran Inj*) 4 mg IV Q6H PRN PRN Reason: nausea Ondansetron HCl (Zofran Odt Tab*) 4 mg PO Q6H PRN PRN Reason: NAUSEA Rivaroxaban (Xarelto(*)) 10 mg PO DAILY [facility] Stop: 06/13/18 23:59 Last Admin: 06/10/18 08:14 Dose: 10 mg Tramadol HCl (Ultram*) 50 mg PO Q6H [facility] Last Admin: 06/10/18 07:22 Dose: 50 mg Vital Signs - 8 hr 06/10/18 06/10/18 06/10/18 03:51 03:57 07:22 Temperature 99.0 F Pulse Rate 93 Respiratory 16 16 18 Rate Blood Pressure 110/50 (mmHg) O2 Sat by Pulse 93 Oximetry 06/10/18 06/10/18 06/10/18 07:28 08:00 08:14 Temperature 100.3 F Pulse Rate 94 Respiratory 16 18 18 Rate Blood Pressure 136/47 (mmHg) O2 Sat by Pulse 94 94 Oximetry 06/10/18 06/10/18 06/10/18 08:15 09:00 10:17 Temperature 98.1 F Pulse Rate Respiratory 16 18 Rate Blood Pressure (mmHg) O2 Sat by Pulse Oximetry 06/10/18 06/10/18 06/10/18 10:25 10:26 11:21 Temperature 98.7 F Pulse Rate 98 Respiratory 16 16 17 Rate Blood Pressure 125/55 (mmHg) O2 Sat by Pulse 93 Oximetry Oxygen Devices in Use Now: None, CPAP Appearance: NAD Eyes: No Scleral Icterus, PERRLA Ears/Nose/Mouth/Throat: NL Teeth, Lips, Gums, Clear Oropharnyx Neck: NL Appearance and Movements; NL JVP, Trachea Midline Respiratory: Symmetrical Chest Expansion and Respiratory Effort, Clear to Auscultation Cardiovascular: RRR Abdominal: NL Sounds; No Tenderness; No Distention Lymphatic: No Cervical Adenopathy Extremities: No Edema, - - right hip covered Skin: No Rash or Ulcers Neurological: Alert and Oriented x 3 Result Diagrams: 06/10/18 05:29 06/09/18 05:21 Assess/Plan/Problems-Billing Assessment: 62 yo F IDDM, COPD, tobacco abuse s/p right FRANK - Patient Problems (1) S/P total hip arthroplasty Comment: POD 2 care per primary team pain under good control PT (2) Diabetes Comment: Glargine 145 units Lispro SS FSG qachs (3) LUIS E (obstructive sleep apnea) Comment: home CPAP in room (4) DVT prophylaxis Comment: xarelto Status and Disposition: Will sign off for now please call with additional questions or concerns [phone]
[2018-06-10] MEDS ORDERED: Bisacodyl SUPP* 10 MG SUPP PR PRN (13:05)
[2018-06-10] MEDS: Insulin GLARGINE(*) 1 UNITS UNIT SUBCUT SCH (17:03)
[2018-06-10] MEDS: metFORMIN* 500 MG TAB PO SCH (20:39)
[2018-06-11] MEDS: traMADol TAB* 50 MG PO SCH ×2 (02:04→09:02)
[2018-06-11] MEDS: Acetaminophen TAB* 325 MG PO SCH (05:09)
[2018-06-11 06:15] LABS: Hematocrit 26 % (35-47); Hemoglobin 8.6 g/dl (12.0-16.0); Mean Platelet Volume 8.1 um3 (7.4-10.4); Platelet Count 220 10^3/ul (150-450)
[2018-06-11] MEDS: Rivaroxaban TAB(*) 10 MG PO SCH (09:01)
[2018-06-11] MEDS: Methocarbamol TAB* 500 MG PO SCH (09:01)
[2018-06-11] MEDS: DULoxetine DR CAP* 30 MG CAP.DR PO SCH (09:01)
[2018-06-11] MEDS: metFORMIN* 1,000 MG TAB PO SCH (09:01)
[2018-06-11] MEDS: Atorvastatin* 10 MG TAB PO SCH (09:02)
[2018-06-11] MEDS: Famotidine TAB* 20 MG PO SCH (09:02)
[2018-06-11] MEDS: Gabapentin CAP(*) 300 MG PO SCH (09:02)
[2018-06-11] MEDS: Cholecalciferol TAB* 1000 UNITS PO SCH (09:02)
[2018-06-11] MEDS: ALPRAZolam TAB* 0.5 MG PO SCH (09:02)
[2018-06-11] MEDS: Magnesium Hydroxide LIQ* 30 ML UDC PO SCH (09:03)
[2018-06-11] MEDS: Insulin LISPRO* 1 UNITS UNIT SUBCUT SCH (09:03)
[2018-06-11] MEDS: Docusate CAP* 100 MG PO SCH (09:03)
--- NOTE | 2018-06-11 09:03 | PN ---
Progress Note - Progress Note Date of Service: 06/11/18 Note: POD #3, Temp 100.3 down to 98.9, VSStable. Awake, alert, cooperative, and breathing easily. Hct is 26%. Has done well with therapy. Lifts right knee and moves right ankle up and down. Imp: Stable. Plans: Home today. Walker, WBAT right. Xarelto 10 mg for a few more days, then ASA 325 mg daily for another 25 days. Office in 3-4 weeks and as needed.
[2018-06-11 10:47] VITALS: BP 126/51
[2018-06-11] MEDS ORDERED: Loperamide CAP* 2 MG PO ONE (12:30)
== END 2018-06-11 12:40 | disposition home health service (06) | DRG 301 ==
LOC: AA 07:58 → SSU 14:52
PROVIDERS: ADMIT Orthopaedic Surgery; ATTEND Orthopaedic Surgery
PROC: 0SR902Z Replacement of Right Hip Joint with Metal on Polyethylene Synthetic Substitute, Open Approach (ICD-10-PCS; principal; 2018-06-08 09:00)
DX: M16.11 Unilateral primary osteoarthritis, right hip (principal); F33.9 Major depressive disorder, recurrent, unspecified; D62 Acute posthemorrhagic anemia; Z68.41 Body mass index [BMI] 40.0-44.9, adult; E11.9 Type 2 diabetes mellitus without complications; G47.00 Insomnia, unspecified; F43.9 Reaction to severe stress, unspecified; G89.4 Chronic pain syndrome; F41.1 Generalized anxiety disorder; E78.2 Mixed hyperlipidemia; E89.0 Postprocedural hypothyroidism; K21.9 Gastro-esophageal reflux disease without esophagitis; I10 Essential (primary) hypertension; K75.81 Nonalcoholic steatohepatitis (NASH); E53.9 Vitamin B deficiency, unspecified; G47.33 Obstructive sleep apnea (adult) (pediatric); J44.9 Chronic obstructive pulmonary disease, unspecified; R00.0 Tachycardia, unspecified; E66.01 Morbid (severe) obesity due to excess calories; M25.751 Osteophyte, right hip; Z23 Encounter for immunization; Z90.49 Acquired absence of other specified parts of digestive tract; Z88.8 Allergy status to other drugs, medicaments and biological substances; Z88.5 Allergy status to narcotic agent; Z87.891 Personal history of nicotine dependence; Z90.710 Acquired absence of both cervix and uterus; Z90.722 Acquired absence of ovaries, bilateral
CPT/HCPCS: 36415; 72170; 80048; 85014; 85018; 85049; 88304; 88311; 90686; A9270-GY; C1713; C1776; G8987-GO-CK; G8988-GO-CI; J0330; J0360; J0690; J1170; J1240; J1885; J2250; J2405; J2704; J3010

== ENCOUNTER 2018-09-13 23:25 | Emergency (ER) | payer OTHER ==
[2018-09-13] MEDS ORDERED: Ketorolac INJ* 60 MG/2 ML VIAL IM ONE (23:29)
[2018-09-13] MEDS ORDERED: Lidocaine PATCH 5%* 1 PATCH TRANSDERM ONE (23:29)
[2018-09-13] MEDS ORDERED: Morphine VIAL* 4 MG/ML VIAL (1 ml vial) IM ONE (23:30)
--- NOTE | 2018-09-13 23:32 | ED ---
Lower Extremity - HPI Summary HPI Summary: Pt is a 63 y/o female brought in by EMS who presents to the ED c/o left hip pain. She had a total right hip replacement in May 2018. For the past 2 months, she has had left hip pain. Pt came to the ED today because the pain became worse and she can barely walk. She denies any recent fall or injury, or abdominal pain. Pt takes Tramadol for the pain. She denies being on blood thinners. Pt is a diabetic, and says her glucose was 142 this morning. - History of Current Complaint Stated Complaint: LEFT HIP PAIN Hx Obtained From: Patient Mechanism Of Injury: Other - No injury Onset of Pain: Days - 2 months ago Onset/Duration: Still Present Timing: Constant Location: Is Discrete @ - left hip Associated Signs And Symptoms: Positive: Negative Aggravating Factor(s): Ambulation - Allergies/Home Medications Allergies/Adverse Reactions: Allergies Allergy/AdvReac Type Severity Reaction Status Date / Time carisoprodol [From Soma] Allergy Severe Rash And Verified 06/08/18 08:18 Itching cortisone Allergy Severe Nausea And Verified 06/08/18 08:18 Vomiting iodine Allergy Severe Nausea And Verified 06/08/18 08:18 Vomiting oxycodone [From Percocet] Allergy Severe Itching Verified 06/08/18 08:18 cyclobenzaprine Allergy Hallucinati Verified 06/08/18 08:18 ons PMH/Surg Hx/FS Hx/Imm Hx Endocrine/Hematology History: Reports: Hx Diabetes - DM II Denies: Hx Thyroid Disease Cardiovascular History: Reports: Hx Hypercholesterolemia, Hx Hypertension, Other Cardiovascular Problems/Disorders - hyperlipidemia Denies: Hx Congestive Heart Failure, Hx Pacemaker/ICD Respiratory History: Reports: Hx Asthma, Hx Chronic Bronchitis, Hx Pneumonia, Hx Sleep Apnea, Other Respiratory Problems/Disorders - smoker Denies: Hx Chronic Obstructive Pulmonary Disease (COPD) GI History: Reports: Hx Gastroesophageal Reflux Disease, Other GI Disorders - Has a "fatty Liver" patient states Denies: Hx Ulcer History: Reports: Other Problems/Disorders - hematuria chronic Denies: Hx Renal Disease Musculoskeletal History: Reports: Hx Arthritis, Hx Back Problems, Hx Scoliosis, Other Musculoskeletal History - DDD Sensory History: Reports: Hx Contacts or Glasses Denies: Hx Hearing Aid Opthamlomology History: Reports: Hx Contacts or Glasses Neurological History: Comment Only: Other Neuro Impairments/Disorders - PAIN CLINIC PT Psychiatric History: Reports: Hx Anxiety, Hx Depression Denies: Hx Panic Disorder - Cancer History Hx Chemotherapy: No Hx Radiation Therapy: No - Surgical History Surgery Procedure, Year, and Place: gallbladder, intestional surgery as an , partial hyster, right knee surgery, left ulnar nerve, left carpal tunnel , x 2, thyroidectomy Hx Anesthesia Reactions: No Infectious Disease History: Denies: Hx Clostridium Difficile, Hx Hepatitis, Hx Human Immunodeficiency Virus (HIV), Hx of Known/Suspected MRSA, Hx Shingles, Hx Tuberculosis, Hx Known/ Suspected VRE, Hx Known/Suspected VRSA, History Other Infectious Disease - Family History Known Family History: Positive: Unknown - adopted - Social History Alcohol Use: None Hx Substance Use: No Substance Use Type: Reports: None Substance Use Comment - Amount & Last Used: nucynta Hx Tobacco Use: Yes Smoking Status (MU): Former Smoker Type: Cigarettes Amount Used/How Often: ~ 1 ppd Length of Time of Smoking/Using Tobacco: started ~ age 19 Have You Smoked in the Last Year: No Review of Systems Negative: Abdominal Pain Positive: Arthralgia - left hip All Other Systems Reviewed And Are Negative: Yes Physical Exam - Summary Physical Exam Summary: Appearance: Well appearing, no pain distress, obese Skin: warm, dry, reflects adequate perfusion Head/face: normal Eyes: EOMI, NADER ENT: mucous membranes moist Neck: supple, non-tender Respiratory: CTA, breath sounds present Cardiovascular: RRR, pulses symmetrical, good femoral pulses Abdomen: non-tender, soft Bowel Sounds: present Musculoskeletal: strength/ROM intact, left greater trochanter tenderness, minimal pain with flexion of left hip, no pain with log roll Neuro: normal, sensory motor intact, A&Ox3 Triage Information Reviewed: Yes Vital Signs On Initial Exam: Initial Vitals Temp Pulse Resp BP Pulse Ox 97.4 F 83 16 168/73 98 09/13/18 23:25 09/13/18 23:25 09/13/18 23:25 09/13/18 23:25 09/13/18 23:25 Vital Signs Reviewed: Yes Diagnostics - Vital Signs Vital Signs Temp Pulse Resp BP Pulse Ox 09/13/18 23:25 97.4 F 83 16 168/73 98 - Laboratory Lab Statement: Any lab studies that have been ordered have been reviewed, and results considered in the medical decision making process. - Radiology Hip/Pelvis XR Radiology Interpretation Completed By: ED Physician Summary of Radiographic Findings: No fracture. Degenerative changes. Pending official radiology report. Re-Evaluation - Re-Evaluation First Eval Re-Evaluation Time: 12:05 Change: Unchanged Comment: Discussed XR results. Lower Extremity Course/Dx - Course Course Of Treatment: Nurse's notes reviewed. X-rays negative for any significant findings. Patient is ambulatory. Pain for almost 2 months. Some pain at the trochanter. Patient is unable to take any steroids. Treated with Lidoderm patch, Toradol and morphine here with improvement. Patient has tramadol at home. Add Mobic. Follow up with her orthopedist. - Diagnoses Differential Diagnosis/HQI/PQRI: Positive: Arthritis, Bursitis, Contusion, Dislocation, Fracture (Closed) Provider Diagnoses: Osteoarthritis of left hip, Trochanteric bursitis Discharge - Sign-Out/Discharge Documenting (check all that apply): Patient Departure - Discharge - Discharge Plan Condition: Improved Disposition: HOME Prescriptions: Meloxicam [Mobic] 7.5 mg PO DAILY #30 tablet Patient Education Materials: Hip Bursitis (ED), Osteoarthritis (ED) Referrals: Vikram Cespedes MD [Medical Doctor] - Lee Suresh DO [Primary Care Provider] - Additional Instructions: Ice to the sore area. Tramadol previously prescribed for discomfort that is severe. Call the orthopedist to schedule prompt follow-up tomorrow. Return if worse, fever, new symptoms or other concerns. - Billing Disposition and Condition Condition: IMPROVED Disposition: Home - Attestation Statements Document Initiated by Kole: Yes Documenting Scribe: Meme Faustin Provider For Whom Kole is Documenting (Include Credential): Adán Villaseñor MD Scribe Attestation: Meme Rosenthal, scribed for Adán Villaseñor MD on 09/14/18 at 0041. Scribe Documentation Reviewed: Yes Provider Attestation: The documentation as recorded by the Meme bingham accurately reflects the service I personally performed and the decisions made by me, Adán Villaseñor MD Status of Scribe Document: Viewed
[2018-09-14 00:39] VITALS: BP 122/78
[2018-09-14] MEDS ORDERED: Lidocaine Patch REMOVE* 1 NOTE MISC SCH (21:00)
== END 2018-09-14 01:06 | disposition home or self-care (01) ==
LOC: ED 23:25
DX: M16.12 Unilateral primary osteoarthritis, left hip (principal); M70.62 Trochanteric bursitis, left hip; Z96.641 Presence of right artificial hip joint; Z88.5 Allergy status to narcotic agent; Z88.8 Allergy status to other drugs, medicaments and biological substances; Z87.891 Personal history of nicotine dependence
CPT/HCPCS: 96372; 99282; A9270-GY; J1885; J2270

== ENCOUNTER 2018-10-05 07:30 | Inpatient (IN) | payer OTHER ==
--- NOTE | 2018-09-21 06:32 | HP ---
HISTORY AND PHYSICAL: DATE OF ADMISSION: 10/05/18 The patient will be coming in to the [facility] 10/05/18 for a left total knee replacement. CHIEF COMPLAINT: Left hip region pain. HISTORY OF PRESENT ILLNESS: The patient has had 6 to 8 weeks of increasingly painful left hip pain, which has been disabling her more and more. Her right total hip replacement was done in the last couple of months and she is markedly improved in her right hip and then the left hip became painful 6 to 8 weeks ago and it has required use of cane in her left hand and her walking distance is less than a block. She does not have stairs at home, but she knows the left hip is making stairs more difficult and difficulty putting on her left socks and shoes. She attended the emergency room on 09/13/18 with severe left hip region pain and they felt it was from her left hip. New x-rays were obtained at that time showing near [id number] osteoarthritis of the left hip. The plan is for a left total hip replacement. PAST MEDICAL HISTORY: No history of heart attack or chest pain. The patient in March 2018 had an echocardiogram showing normal left ventricular size and function with grade 1 diastolic dysfunction. In April 2018, the patient had a normal cardiac chemical nuclear stress test. No past history of DVT or pulmonary embolism. She has had no complications following her right total hip replacement. She retired with a chronic disability. Her walking is less than 1 block. Other medical problems; anxiety state, COPD. PAST SURGICAL HISTORY: Right total hip replacement, 2 C-sections, she has had a partial hysterectomy, knee arthroscopic surgery, left ulnar nerve transposition, carpal tunnel surgeries left and right, and thyroid surgery. Her medications include thyroid replacement. CURRENT MEDICATIONS: 1. Zolpidem 5 mg at bedtime. 2. Tramadol 50 mg 1 to 2 tablets 3 times a day as needed. 3. Insulin 150 units once a day. 4. Gabapentin 600 mg 3 times a day. 5. Vitamin D. 6. Diclofenac gel for her skin. 7. Prazosin 1 mg at bedtime. 8. Furosemide 20 mg each day. 9. Thyroid replacement is either 50 mcg or 200 mcg. 10. Duloxetine 30 mg 2 tablets each day. 11. Ranitidine 150 mg each day. 12. Metformin 1000 mg twice a day. 13. Alprazolam 1 mg every 8 hours as needed. 14. Dicyclomine 10 mg 1 to 2 twice daily. 15. Lovastatin 40 mg each day. 16. Ventolin inhaler. ALLERGIES: SOMA, IODINE, CORTISONE, CYCLOBENZAPRINE, OXYCODONE. FAMILY HISTORY: She is adopted and her family history is not known. SOCIAL HISTORY: She lives with her spouse. She is disabled. She does not smoke. She does not drink. She enjoys walking, crocheting, and cross stitch. She is right handed. REVIEW OF SYSTEMS: No bleeding disorders. No history of DVT of pulmonary embolism. PHYSICAL EXAMINATION GENERAL: Overweight. Not acutely distressed. Cranial nerves are grossly intact. HEENT: The head is NC/AT. LUNGS: Clear bilaterally. HEART: Regular S1, S2 normal. No murmurs or gallops. ABDOMEN: Round, soft, and nontender. No organomegaly is appreciated. EXTREMITIES: Left hip pain, full straight leg raising on the left. Painful left hip abduction. Left hip flexion 80 degrees with pain. Abduction 40 degrees with pain. Nontender left hip anteriorly, some tenderness laterally, nontender posteriorly. Thigh and calf on the left are soft and nontender. She can rise on her toes and her heels. DIAGNOSTIC STUDIES/LAB DATA: Radiographs shows severe left hip arthritis with bone on bone joint space narrowing. IMPRESSION: Severe arthritis of left hip. PLAN: Left total hip replacement. Goals, risks, and complications have been reviewed with her. [id number]/[facility] #: [id number] NELIDA
--- NOTE | 2018-10-20 16:52 | HP ---
HISTORY AND PHYSICAL: DATE OF ADMISSION/SURGERY: 10/26/18 She will be entering [facility] 10/26/18 for a left total hip replacement. CHIEF COMPLAINT: Left hip numb, pain. HISTORY OF PRESENT ILLNESS: She has had increasing problems with her left hip over the last 3 to 4 months. She is now nearly totally disabled with it. Her walking is less than a block. She has 3 stairs at home that she does with great difficulty, one at a time using the banister. She is using a cane in the right hand and the left hip pain awakens her at night. The patient had a right total hip replacement without complications in the fall of 2018. PAST MEDICAL HISTORY: She has adult-onset diabetes, hypertension, hypothyroidism, and some chronic pain. Medical problems also include COPD, depression and anxiety, diverticulitis, hypercholesterolemia, overweight, and vertigo. MEDICATIONS: Her daily meds include: 1. Gabapentin 600 mg 3 times a day. 2. Prazosin 1 mg at bedtime. 3. Furosemide 20 mg each day. 4. Thyroid 250 mcg each day. 5. Metformin 1000 mg each twice a day. 6. Alprazolam 1 mg every 8 hours. 7. Dicyclomine 10 mg 1 to 2 tablets twice daily as needed. 8. Lovastatin 40 mg 1 a day. 9. Methocarbamol 500 mg twice a day as needed. 10. Naproxen 500 mg as needed. 11. Ventolin inhaler. 12. Tylenol Arthritis. ALLERGIES: SOMA, IODINE, CORTISONE, CYCLOBENZAPRINE, OXYCODONE, and TYLENOL. FAMILY HISTORY: Not known. She is an adopted person. SOCIAL HISTORY: She is living with her daughter; it is a trailer and they have 3 steps to get in and out. She did very well getting over her right total hip replacement. FURTHER PAST MEDICAL HISTORY: No history of heart attack. No chest pain. No shortness of breath. No cancers and no bleeding tendencies. PHYSICAL EXAMINATION GENERAL: Overweight, antalgic gait on the left. HEENT: The head is NC/AT. LUNGS: Clear bilaterally. HEART: Regular. S1, S2 normal. No murmurs or gallops. ABDOMEN: Round, soft, and nontender. There is no organomegaly appreciated. EXTREMITIES: Straight leg raising on the right is pain-free and straight leg raising on the left is painful in the left groin. The left posterior tibial pulse is 2+. The left hip has painful range of movement. NEUROLOGIC: Her cranial nerves are grossly intact. DIAGNOSTIC STUDIES: X-rays show a satisfactory right total hip replacement and severe arthritis of the left hip. IMPRESSION: Severe arthritis of the left hip. Medical problems include chronic pain, adult-onset diabetes, hypothyroidism. PLAN/RECOMMENDATIONS: Left total hip replacement. [id number]/[facility] #: [id number] MTDD
[2018-10-25] MEDS ORDERED: Buffered Lidocaine 1% SYRIN* 1 ML/SYRINGE INTRADERM ONE (14:21)
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
--- OUTSIDE RECORDS SUMMARY | 2018-10-26 05:32 | XMS REPORT | Continuity of Care Document ---
:1955 External Reference #:[id number] Author Name Lee Suresh D.O. Address [address] [place] [address] Care Team Providers Name Role Phone HCP given Primary Care Physician Unavailable Payers Type Date Identification Numbers Payment Provider Subscriber Effective: Policy Number: [id number] Monroy/[employer] (CHELSIE Cheek 2014 MGD) PayID: [id number] [address] [address] [place] [address] Advance Directives Description No Information Available Problems Date Description Provider Status Onset: 11/28/2009 Essential hypertension Active Onset: 01/14/2011 Anxiety state Noa Roman MD Active Onset: 01/14/2011 Gastroesophageal reflux disease Noa Roman MD Active Onset: 01/14/2011 Tobacco user Noa Roman MD Active Onset: 01/14/2011 Mild recurrent major depression Noa Roman MD Active Onset: 01/14/2011 Postoperative hypothyroidism Noa Roman MD Active Onset: 01/14/2011 Pure hypercholesterolemia Noa Roman MD Active Onset: 02/27/2014 Type 2 diabetes mellitus Sera Schwartz, P.A. Active Onset: 02/27/2014 Pure hyperglyceridemia Sera Schwartz, P.A. Active Onset: 02/27/2014 Mixed hyperlipidemia Sera Schwartz, P.A. Active Onset: 11/27/2014 Generalized anxiety disorder Britta Melo Active RPA-C Onset: 11/27/2014 Recurrent major depressive episodes Britta Melo Active RPA-C Onset: 01/03/2015 Chronic pain syndrome Britta Melo, Active RPA-C Onset: 01/03/2015 Type II diabetes mellitus Britta Melo, Active uncontrolled RPA-C Onset: 06/04/2015 Type II diabetes mellitus Lee Suresh D.O. Active uncontrolled Onset: 06/04/2015 Counseling Lee Suresh D.O. Active Onset: 06/04/2015 Dietary management surveillance Lee Suresh D.O. Active Onset: 11/12/2015 Disorder of magnesium metabolism Lee Suresh D.O. Active Onset: 02/12/2016 Thyrotoxicosis Lee Suresh D.O. Active Onset: 05/29/2016 Vitamin B-complex deficiency Lee Suresh D.O. Active Family History Date Family Member(s) Problem(s) Comments General Little knowledge, adopted at early age, still in touch with step mother. Vague knowledge of heart disease in family Second Daughter Healthy Social History Type Date Description Comments Sex Unknown Education High School Completed Marital Status and remarried Tobacco Use Start: Unknown End: Former Cigarette Prev smoked about 1 Unknown Smoker PPD - 17y/o until 58=41 pack year history. Smoking Status Reviewed: 10/02/17 Former Cigarette Prev smoked about 1 Smoker PPD - 17y/o until 58=41 pack year history. ETOH Use Has consumed alcohol in the past Recreational Drug Use Denies Drug Use Tobacco Use Start: Unknown End: Patient is a former Unknown smoker Sun Exposure Does not use sunscreen Seat Belt/Car Seat always uses seat belt Smoke Alarms Yes smoke alarm Currently Active Patient is currently not sexually active Age 1st [place] 15 Years Old # [facility] 5-10 Allergies, Adverse Reactions, Alerts Date Description Reaction Status Severity Comments 12/16/2010 Soma Active hallucination 02/07/2011 Iodinated Diagnostic hives Active Pt is not allergic to Agents non-iodinated contrast dyes, tolerates 02/07/2011 PT Able To Have Active Non-Iodinated Contrst Dyes 06/19/2011 Cortisone Active 05/20/2016 Cyclobenzaprine Active hallucinations Medications Medication Date Status Form Strength Qnty SIG Indications Ordering Provider Zolpidem 07/19/ Active Tablets 5mg 45tabs take 1 Unknown Tartrate 2018 tablet by mouth daily at bedtime Ok To Take 1 More If Needed For Sleep. Max Of 2 Tabs/Day Methocarbamol 06/15/ Active Tablets 500mg 60tabs Take 1 Demetrice 2017 tablet by Lee, mouth D.O. twice a day as needed Levothyroxine 04/14/ Active Tablets 50mcg 90tabs 1 by mouth Demetrice, Sodium 2018 every day, Lee, take with D.O. the 200 mcg tab Tramadol HCL 04/12/ Active Tablets 50mg 60tabs 1-2 by M25.551 Demetrice 2017 mouth Lee, every 6 D.O. hours as needed for pain Gabapentin 04/11/ Active Tablets 600mg 90tabs take 1 Franco 2017 tablet by Edu mouth M.DAlexandra three times a day Ra Cetirizine 03/08/ Active Tablets 10mg 90tabs 1 cap by Roz Suresh mouth Lee, every day D.O. as needed True Metrix 01/05/ Active Strips 100uni Test Blood Silcoff, Blood 2017 ts Sugar 2 To Edu Glucosetest 3 Times A M.D. Strips Day Blood Pressure 12/18/ Active 1units Use to Hortensiacoadan, Wrist Monitor 2017 check BP Edu, at home M.D. True Metrix 11/09/ Active 1units Check Silcoff, Blood Glucose 2017 blood Edu, Monitor sugar 2-3 M.D. times a day Truemetrix Air 11/09/ Active 100uni Test 2-3 Silcoff, Blood Sugar 2017 ts times a Edu, Test Strips day M.D. Tylenol 10/01/ Active Tablets ER 650mg 1 by mouth Unknown Arthritis Pain 2017 3-4 daily as needed for pain Ranitidine HCL 08/11/ Active Tablets 300mg 90tabs take 1 K21.9 Demetrice 2016 tablet by Lee, mouth D.O. daily Basaglar 02/13/ Active Solution 100Unit/ML 135ml inject 145 E11.65 David Gamez 2017 Pen-Inject units once shu Sorensen M.DAlexandra Ra Pen [place] 11/21/ Active Misc 31G X 5 mm 900uni Use With Demetrice 2016 ts Levemir Lee, Pen as D.O. Directed Up To 2 Times Per Day Ventolin HFA 10/28/ Active Aerosol 108(90Base 18gm 2 puffs J20.9 Sopchak, 2017 ) mcg/Act q4-6 hours Lee, as needed D.O. Ra Vitamin D-3 10/22/ Active Capsules 5000Unit 90caps take 1 Sopchak, 2017 capsule by Lee, mouth once D.O. daily or 7 capsule by mouth Once A Week Diclofenac 10/17/ Active Gel 1% 100gm apply 2-4 M25.561 Silcoff, Sodium 2017 grams to Edu, each knee M.D. 2-3 times a day as needed for knee pain for maximum of 16 grams per day M25.562 Prazosin HCL 10/16/2016 Active Capsules 1mg 30caps take 1 tablet F51.5 Sopchak, by mouth at Lee, bedtime to Help D.O. With Nightmares Furosemide 08/06/2016 Active Tablets 20mg 30tabs take 1 tablet Silcoff , by mouth daily Edu, as needed for M.D. swelling Betamethasone 03/13/2016 Active Cream 0.05% 15units apply twice a S40.86 Sopchak, Dipropionate day 2A Lee, D.O. Duloxetine HCL 02/12/[address] 30mg 60caps take 2 capsules F33.9 Sopchak, Part by mouth daily Lee, for Depression D.O. Vitamin B-12 11/26/2015 Active Tablets 1000m 270tabs 1 sl three Sopchak, Sub cg times a day ok Lee, to change dose D.O. to 500mcg or 5000mcg based on availablility Magnesium Oxide 11/13/2015 Active Tablets 500mg 270tabs take 3 tablets E83.42 Sopchak, by mouth every Lee, evening D.O. BD Pen 11/02/2015 Active Misc 31G X 200unit or appropriate E11.65 Sopchak, Needle/Mini/Ult 5 mm s needles for jovana Howard/31G X levemir pen. D.O. 11/27" use up to 2/day, as directed, for insulin administration Lancet Device 11/02/2015 Active 360unit whichever brand E11.65 Silcoff, For Testing s is preferred by Edu Glucose insurance. M.D. testing daily- 4times a day # 360 Ra 10/15/2015 Active Tablets ER 180tabs 1 by mouth Sopchak, B-Complex/Vitam twice a day Lee, in C CR D.O. Vitamin D3 10/12/2015 Active Capsules 5000U 90caps 1 by mouth Sopchak, Maximum nit every day or 7 Lee, Strength tablets once a D.O. week Metformin HCL 05/02/2015 Active Tablets 500mg 90tabs 1 by mouth E11.65 Sopchak, every day Lee, D.O. Levothyroxine 11/29/2014 Active Tablets 200mc 90tabs 1 by mouth E89.0 Silcoff, Sodium g every day along Edu, with a 25 mcg M.D. for a total of 225 mcg by mouth every day Freestyle 10/30/2014 Active 100unit use to test Sopchak, Lancets Misc s blood sugars Lee, three times a D.O. day please give the appropriate lancet that fits her device Freestyle Lite 10/30/2014 Active Strips 100unit test 2-3 times E11.65 Sopchak, Test s per day please Lee, give whatever D.O. test strips fit the patients glucose monitoring system. Metformin HCL 03/16/2014 Active Tablets 1000m 60tabs take one tablet E11.9 Sopchak, g by mouth twice Lee, a day D.O. E11.65 Glucose Monitor 02/27/2014 Active 1units check blood E11.9 Silcoff, sugar bid Kaelyn Sorensen Alprazolam 10/17/2013 Active Tablets 1mg 90tabs 1 tab every F41.1 Sopchak, 8 hours as Lee, D.O. needed for anxiety code a mdd 3 mdd 3 mdd 3 Dicyclomine HCL 03/03/2012 Active Capsules 10mg 60caps 1-2 caps Sopchak, twice a day. Lee, D.O. MDD 3 MDD 3 Ibuprofen Active Tablets 800mg 60tabs 1 by mouth Franco, three times Kaelyn Sorensen a day as needed for pain Lovastatin Active Tablets 40mg 90tabs take 1 E78.0 Sopchak, tablet by Lee, D.O. mouth once daily E78.2 Gabapentin 02/25 Hx Tablets 800mg 90tab 1 tab po tid for Silcoff, /2018 s pain Renee Sorensen M.D. 04/11 Raised Commode Seat 12/28 Hx 1unit For use post Silcoff, With Removeable s Yue Weems M.D. 04/11 Oseltamivir 10/08 Hx Capsules 75mg 10cap 1 by mouth daily [facility], Phosphate s for 10 days. Prosper Howard - 10/18 Freestyle Lite Blood 04/27 Hx Device 1unit or any other [facility], Glucose Monitoring s covered glucometer Prosper Howard System - by her insurance. 04/11 Naprosyn 04/26 Hx Tablets 500mg 1-2 caps by mouth twice a day as - needed for pain 07/15 Levocetirizine 03/02 Hx Tablets 5mg 90tab 1 by mouth every [facility], Dihydrochloride s day Radha Howard.O. - 04/11 Zyrtec Allergy 02/25 Hx Capsules 10mg 180ca 1-2 cap by mouth milena ps every day as needed Radha Howard.O. - 03/02 Fluconazole 12/09 Hx Tablets 100mg 3tabs 1 po every 3 days Sopjohn for 3 doses Radha Howard.O. - 12/16 Fluconazole 12/08 Hx Tablets 150mg 3tabs 1 by mouth once [facility] every 3 days for 3 Lee D.O. - doses 12/09 Invokana 12/04 Hx Tablets 100mg 90tab give 100 mg orally E11. Demetrice s once daily 64 Radha Howard.O. - 03/31 Cefdinir 11/04 Hx Capsules 300mg 20cap 1 cap by [facility], s twice a day Lee D.O. - 11/14 Azithromycin 10/28 Hx Tablets 250mg 6tabs 2 tabs by mouth J20. Hekjoy, daily x1 day then 1 9 MELANIE Gant - tab by mouth daily 12/03 x4 days /2016 Gabapentin 10/23 Hx Tablets 600mg 90tab take 1 tablet by Demetrice, s mouth three times a Radha Howard.O. - day 02/25 Levemir Flextouch 06/13 Hx Solution 100Un 45uni 138 units once in E11. Kasi Pen-Inject it/ML ts evening. 64 Lee D.O. - 02/13 Levothyroxine Sodium 02/12 Hx Tablets 25mcg 90tab Take 1 Tablet by Demetrice s mouth every day Kristie HowardO. - Along with 200mcg 04/14 Zyrtec Allergy 02/11 Hx Capsules 10mg 180ca 1-2 cap by mouth S40. milena ps every day as needed 862A Radha Howard.O. - 12/03 Methimazole 12/09 Hx Tablets 5mg 90tab 1 tabs three times Demetrice s a day for Radha Howard.O. - hyperthyroidism 02/12 Ciprofloxacin HCL 12/06 Hx Tablets 500mg 14tab 1 tab twice a day x R30. Demetrice s 7 0 Lee D.O. - 12/13 Quetiapine Fumarate 11/22 Hx Tablets 25mg 30tab 1/2 pill at F33. Demetrice s bedtime. 9 Radha Howard.O. - 12/04 Slow-Mag Hx Tablets DR 71.5- 180ta 2 by mouth at night E83. Kasi 119mg bs 42 Lee, D.O. - 11/12 Levemir 11/02 Hx Solution 100Un 30ml sub cutaneous E11. milena it/ML injection 138 units 64 Lee, D.O. - 06/13 Ciprofloxacin HCL 11/01 Hx Tablets 500mg 14tab 1 tab twice a day x R30. Demetrice s 7 0 Lee, D.O. - 11/08 Acarbose 08/29 Hx Tablets 50mg 270ta take one tablet by E11. Demetrice bs mouth three times a 64 Lee, D.O. - day at the start of 11/02 each main meal for type 2 diabetes Acarbose 06/08 Hx Tablets 25mg 90tab take 1 tablet by Demetrice s mouth with any food Jordon Howard. - three times a day 08/29 if not eatting missed don't take a pill for type 2 diabetes Januvia 05/02 Hx Tablets 100mg 30tab 1 by mouth every E11. Demetrice, s day 64 Lee D.O. - 11/02 Nucynta 04/29 Hx Tablets 50mg take 1 tablet by [facility] mouth twice a day - if needed for pain 04/11 Ranitidine HCL 04/23 Hx Tablets 150mg 60tab take 1 tablet by K21. Demetrice, s mouth twice a day 9 Lee D.Colby. - 08/11 Medically Supervised 02/15 Hx please evaluate and E11. Demetrice Exercise Program advise for your 64 Lee D.O. - medically 05/16 supervised exercise program. G89.4 F41.1 Levothyroxine 02/02/2015 - Hx Tablets 25mcg 90tabs 1 by mouth E89.0 Silcoff, Sodium 09/04/2015 every day Edu, along with a M.D. 200 mcg for a total of 225 mcg every day Clarithromycin 01/29/2015 - Hx Tablets 500mg 20tabs 1 tablet po Unknown 02/08/2015 twice daily x10 days Levothyroxine 11/29/2014 - Hx Tablets 50mcg 30tabs 1 by mouth 244.0 Silcoff, Sodium 02/02/2015 every day Edu, along with a M.D. 200 mcg tablet to equal 250 mcg total. please discontinue 300 mcg Duloxetine HCL 09/18/2014 - Hx Caps 30mg 7caps 1 by mouth 296.30 Mike Huston 10/19/2014 Part every day for [place], 1 week M.D. Duloxetine HCL 09/18/2014 - Hx Caps 60mg 30caps 1 by mouth F33.40 Demetrice, 12/03/2015 Part every day Radha Howard.Renee G89.4 Hydrocodone-Acetaminophen 04/17/2014 Hx Tablets 5-325mg 60tabs 1 by M25.519 Silcoadan, - mouth Edu, 09/17/2015 every 8 M.D. hours as needed for severe pain G89.4 Terbinafine HCL 04/17/2014 - Hx Cream 1% 30GR apply twice Silcoff, 10/31/2014 a day for Kaelyn Sorensen up to 6-12 weks Glipizide 04/17/2014 - Hx Tablets 5mg 60tabs 1 by mouth E11.9 Sopchak, 06/04/2015 twice a day Prosper Howard E11.65 Calcium 1000 03/16/2014 - Hx Tablets 2913-860sa-Zjqn 30tabs 1 per day 733.90 Silcoff, + D 01/02/2015 Kaelyn Sorensen Glucose Test 02/27/2014 - Hx 100Stri test 250.00 Silcoff, Strips / 10/30/2014 ps bid-tid Kaelyn Sorensen Lancet 02/27/2014 - Hx 100unit test twice 250.00 Silcoff, Device For 10/30/2014 s a day Mali Sorensen M.D. Glucose Metformin 02/27/2014 - Hx Tablets 500mg 60tabs 1 po bid 250.00 Silcoff, HCL 03/16/2014 Kaelyn Sorensen Hydrocodone/ 02/22/2014 - Hx Tablets 5-325mg 60tabs 1 po q8h 719.41 Silcoff, Acetaminophe 04/17/2014 prn for dieudonne Sorensen M.D. pain Robitussin 02/08/2014 - Hx 8Oz 2 tsp po 786.2 Silcoff, ac 02/18/2014 q4h prn Edu, for cough; M.DAlexandra try to limit to nighttime use (as it is sedating) Vancomycin 09/28/2013 - Hx Capsules 125mg 56caps 1 cap qid 008.45 Silcoff, HCL 10/17/2013 Kaelyn Sorensen Proair HFA 08/22/2013 - Hx Aerosol 108(90Base) 1units 2 puff R05 Silcoff, 11/29/2015 mcg/Act every 4-6 nini Sorensen as M.DAlexandra needed R06.09 Amoxicillin/Clavulanate 08/22/2013 Hx Tablets 875-125mg 20tabs 1 tab 461.0 Silcoff, Potassium - po bid Edu 09/02/2013 x 10 M.DAlexandra Proventil HFA 11/19/2012 Hx Aerosol 108(90Base 1units 2 786.2 Silcoff, - ) mcg/ac puffs Edu, 11/19/2012 q4-6 M.D. prn prn Proventil HFA 11/19/2012 Hx Aerosol 108(90Base 1units 2 786.2 Silcoff, - ) mcg/Act puffs Edu, 08/22/2013 q4-6 M.D. prn prn Cephalexin 11/19/2012 Hx Capsules 500mg 14caps 1 462 Silcoff, - tablet Edu, 01/12/2013 bid x M.D. 7 days Ranitidine HCL 09/23/2012 Hx Capsules 150mg 60caps 1 by 530.81 Silcoff, - mouth Edu, 04/23/2015 twice M.D. a day Levothyroxine Sodium 09/23/2012 Hx Tablets 300mcg 30tabs take 1 244.0 Silcoff, - tablet Edu, 11/29/2014 every M.D. mornin g 30 minute s before a meal. Zofran 07/28/2012 Hx Tablets 4mg 15tabs 1 as Silcoff, - needed Edu, 06/07/2014 for M.D. nausea may repeat in six hours, prn Ra Acid Optical Instrument Inspector 07/09/2012 Hx Tablets 75mg 60tabs take 1 Silcoff, - tablet Edu, 01/12/2013 twice M.D. a day if needed Amoxicillin/Clavulanate 06/30/2012 Hx Tablets 875-125mg 20tabs 1 tab 461.1 Silcoff, Potassium - po bid Edu, 07/10/2012 x 10 M.D. Benzonatate 06/30/2012 Hx Capsules 200mg 30caps 1 po 461.1 Silcoff, - tid, Edu, 02/08/2014 prn M.D. Saline Nasal [place] 06/30/2012 Hx Solution 0.65% 1Bottle use up 461.1 Silcoff, - to Edu, 09/17/2014 6x/day M.D. Symbicort 06/30/2012 Hx Aerosol 80-4.5mcg/ 3units 1-2 R06.09 Silcoff, - Act inhala Edu, 11/29/2015 tion M.D. twice a day Colestipol HCL 06/20/2012 Hx Tablets 1gm 120tabs take 2 Silcoff, - tablet Edu, 02/08/2014 s 2 M.D. times a day Levothroid 06/17/2012 Hx Tablets 50mcg 30tabs Take 244.0 Silcoff, - half Edu, 09/23/2012 tab po M.D. qd on empty stomac h, 20 minute s before breakf ast with other Levoth roid Ranitidine 75 03/03/2012 Hx Tablets 75mg 60tabs 1 tab 530.81 Silcoff, - po Edu, 09/23/2012 bid, M.D. prn Levothroid 02/26/2012 Hx Tablets 112mcg 60tabs 2 po 244.0 Silcoff, - qd Edu, 09/23/2012 M.D. Estrace 02/23/2012 Hx Cream 0.1mg/GM 1tube 2 gr 616.10 Silcoff, - pv qhs Edu, 01/12/2013 every M.D. other day x 2 weeks then then follow with mainta inance dose of 1 gm 1-3x/w k generi c ok Premarin 02/20/2012 Hx Cream 0.625mg/GM 50G apply 616.10 Silcoff, - 0.5 g Edu, 02/23/2012 qhs,pv M.D. x 2 weeks then reduce to applyi ng small amt to the vagina l openin g Neoprene Knee Wrap 12/10/2011 Hx 1units Rt 719.46 Silcoff, - Knee: Edu, 06/21/2012 wear M.D. daily Buproban 12/10/2011 Hx Tablets 150mg 60tabs take 1 305.1 Silcoff, - ER 12HR tablet Edu, 01/12/2013 twice M.D. a day Doxycycline Hyclate 11/19/2011 Hx Capsules 100mg 60caps 1 cap 695.3 Silcoff, - po bid Edu, 12/20/2011 M.D. Diflucan 07/24/2011 Hx Tablets 150mg 1tabs 1 Silcoff, - tablet Edu, 07/25/2011 , 1 M.D. time Guaifenesin/Codeine 07/18/2011 Hx Solution 100-10mg/5 100ml 1-2 786.2 Silcoff, - ML tsps Edu, 08/18/2011 q4-6 M.D. hrs, prn Amoxicillin/Potassium 07/18/2011 Hx Tablets 875-125mg 20tabs 1 tab 461.0 Silcoff, Clavulanate - po bid Edu, 07/28/2011 x 10 M.D. days Pantoprazole Sodium 06/27/2011 Hx Tablets 40mg 30tabs Take 1 Franco, - DR Jasmyne Sorensen, 03/03/2012 Once M.D. Daily For Acid Reflux Hydrocodone/Acetaminophe 06/19/2011 Hx Tablets 5-500mg 60tabs 1 po 719.41 Silcoff, n - q 8 h Edu, 02/22/2014 prn M.D. for pain Voltaren 06/19/2011 Hx Gel 1% 100gram 2-4 719.41 Silcoff, - grams Edu, 11/20/2011 apply M.D. twice a day x 3 wks, prn Guaifenesin/Codeine 03/24/2011 Hx Solution 100-10mg/5 100ml 1-2 786.2 Silcoff, - ML tsps Edu, 06/18/2011 q4-6 M.D. hrs, prn Citalopram Hydrobromide 02/07/2011 Hx Tablets 40mg 30tabs take F41.9 Silcoadan, - 1/2 Edu, 11/25/2015 tablet M.D. by mouth in the mornin g F33.0 F33.40 Guaifenesin/Codeine 12/16/2010 Hx Solution 100-10mg/5ML 100ml 1-2 786.2 Silcoff, - tsps Edu, 01/14/2011 q4-6 M.D. hrs, prn Amoxicillin 12/16/2010 Hx Tablets 500mg 40tabs 2 tab 462 Silcoff, - po bid Edu, 01/14/2011 x 10d M.D. Nexium 11/21/2010 Hx Capsules 40mg 30caps 1 po Silcoff, - qd for Edu, 06/27/2011 acid M.D. reflux Phenergan 11/13/2010 Hx Tab 25mg 10tabs 1 tab Silcoff, - bid Edu, 06/18/2011 prn M.D. for nausea . Symbicort 11/04/2010 Hx Aerosol 80-4.5mcg/Act 1vial 1-2 466.0 Silcoff, - inh Edu, 11/18/2011 bid M.D. until sxs under contro l then dec to lowest level Clarithromycin 11/04/2010 Hx Tablets 500mg 20tabs 1 tab 466.0 Silcoff, - bid x Edu, 11/27/2010 10 M.D. days Benzonatate 07/04/2010 Hx Capsules 200mg 40caps 1 po 786.2 Silcoff, - tid, Edu, 08/01/2010 prn M.D. Azithromycin 06/12/2010 Hx Tablets 250mg 6tabs 2 tabs 466.19 Silcoff, - day Edu, 06/22/2010 oneKaelyn one tab days 2-5 Cheratussin ac 06/12/2010 Hx Syrup 100-10mg/5ML 100ml 1-2 466.19 Silcoff, - tsp Edu, 08/28/2010 q4hr M.D. Levothroid 02/06/2010 Hx Tablets 200mcg 90tabs 1 tab 244.0 Silcoff, - qd Edu, 02/26/2012 M.DAlexandra Nicoderm CQ 01/25/2010 Hx Patches 21mg/24HR 30unit 1 Silcoff, - 24HR s patch Edu, 03/14/2010 applie Kaelyn d to skin per day Meclizine HCL 12/20/2009 Hx Tablets 25mg 30tabs 1 tab 386.11 Silcoff, - po Edu, 04/24/2010 tid, M.D. prn Baclofen 11/30/2009 Hx Tablets 10mg 60tabs take 1 Mike - -2 A. 06/07/2014 tablet Klepack, by M.DAlexandra mouth three times a day as needed for muscle spasms Levothyroxine Sodium 11/29/2009 Hx Tablets 175mcg 30tabs 1 po Silcoff, - qd in Edu, 02/05/2010 am on M.D. an empty stomac h Nasonex 11/29/2009 Hx Suspension 50mcg/Act 1units 2 Silcoff, - sprays Edu, 06/18/2011 to M.D. both nostri ls once daily Jobes Stockings 11/28/2009 Hx 3units 2 pr 782.3 Silcoff, - knee Edu, 06/18/2011 highs M.D. 1 pr thigh highs Triamcinolone 11/28/2009 Hx Cream 0.1% 80gr apply 782.1 Silcoff, Acetonide - thin Edu, 06/18/2011 layer M.DAlexandra to affect ed areas tid x 2 weeks, then after that: bid, prn Diazepam Hx Tablets 5mg 90tabs 1 qid 296.31 Silcoadan, - prn Edu, 10/17/2013 M.DAlexandra 300.00 Skelaxin - Hx Tablets 800mg 60tabs 1 po bid Silcoadan, 11/30/2009 for your Edu muscle M.D. spasm like pain. Furosemide - Hx Tablets 20mg 90tabs 1 po once Silcoff, 05/15/2010 daily in am Edu, to decrease M.D. edema Levothroid - Hx Tablets 150mcg 60tabs 1 po qd in Unknown 11/29/2009 am on an empty stomach Tramadol HCL - Hx Tablets 50mg 30tabs 1/2 tab qid Silcoff, 01/26/2012 prn Kaelyn Sorensen Premarin - Hx Tablets 0.625mg 90tabs 1 po qd Silcoff, 01/14/2011 Kaelyn Sorensen Nexium - Hx Capsules DR 40mg 30caps 1 po qd for Silcoff, 08/14/2010 acid reflux Kaelyn Sorensen Citalopram - Hx Tablets 20mg 90tabs 1 po qd 300 Silcoff, Hydrobromide 02/07/2011 .00 Kaelyn Sorensen 296.31 Furosemide - Hx Tablets 20mg 30tabs 1 tab po qam 782.3 Silcoff, 02/08/2014 as Edu prescribed Saida.Kristie by dl. using only once/ month Symbicort - Hx Aerosol 80-4.5 Unknown 01/14/2011 mcg/Ac t Diltiazem HCL ER - Hx Caps ER 120mg 90caps 1 every day I10 Silcoff, 11/25/2015 24HR Kaelyn Sorensen Gabapentin - Hx Capsules 300mg 90caps take 1 [facility]89.[facility] capsule Lee, three times D.O. a day Cymbalta - Hx Caps DR 30mg Unknown 10/08/2015 Part Prednisone - Hx Tablets 20mg Unknown 10/03/2015 Neurontin - Hx Tablets 600mg 90tabs 1 [facility], 10/23/2016 three times Lee, a day D.O. Cyclobenzaprine - Hx Tablets 10mg take tablet Unknown HCL 11/11/2015 by mouth three times a day if needed for Muscle Spasms Medications Administered in Office Medication Date Status Form Strength Qnty SIG Indications Ordering Provider B12 Injection Administered Injection Sopchak, 017 Lee, D.O. SC/Im Administered Injection Sopchak, Injections 017 Lee, D.O. B12 Injection Administered Injection Sopchak, 017 Lee, D.O. SC/Im Administered Injection Sopchak, Injections 017 Lee, D.O. B12 Injection Administered Injection Sopchak, 016 Lee, D.O. SC/Im Administered Injection Sopchak, Injections 016 Lee, D.O. Immunizations CPT Code Status Date Vaccine Lot # [id number] Given 07/02/2017 Influenza Virus Vaccine, Quadrivalent, Split, [id number] Preservative Free 75171 Given 05/20/2016 Influenza Virus Vaccine, Quadrivalent, Split, [id number] Preservative Free 17323 Given 08/06/2015 Prevnar 13 [id number] 98326 Given 05/09/2015 Influenza Virus Vaccine, Quadrivalent, Split, [id number] Preservative Free 06358 Given 08/07/2014 Zostavax [id number] 07956 Given 07/19/2014 Flu, Split Virus 3Yrs [id number] 57917 Given 07/13/2013 Flu, Split Virus 3Yrs [id number] 35577 Given 05/20/2012 Flu, Split Virus 3Yrs [id number] 99568 Given 07/15/2011 Flu, Split Virus 3Yrs [id number] 07440 Given 06/26/2010 Pneumococcal Immunization [id number] 52270 Given 06/26/2010 Flu, Split Virus 3Yrs [id number] 98176 Given 11/28/2009 Adacel or Boostrix, TDaP [id number] Vital Signs Date Vital Result Comment 04/12/2018 2:29pm BP Systolic 134 mmHg BP Diastolic 84 mmHg Height 63.5 inches 5'3.50" Weight 260.00 lb BMI (Body Mass Index) 45.3 kg/m2 12/17/2017 1:30pm BP Systolic 140 mmHg BP Diastolic 80 mmHg Weight 261.00 lb w/shoes 10/26/2017 2:26pm BP Systolic 142 mmHg BP Diastolic 84 mmHg Height 64.25 inches 5'4.25" Weight 268.00 lb BMI (Body Mass Index) 45.6 kg/m2 10/02/2017 3:24pm BP Systolic 126 mmHg BP Diastolic 78 mmHg 08/14/2017 3:25pm BP Systolic 124 mmHg BP Diastolic 68 mmHg Weight 260.00 lb 05/08/2017 1:02pm BP Systolic 120 mmHg BP Diastolic 65 mmHg Weight 259.00 lb 03/06/2017 1:02pm BP Systolic 106 mmHg BP Diastolic 60 mmHg Height 64 inches 5'4" Weight 249.00 lb BMI (Body Mass Index) 42.7 kg/m2 12/04/2016 3:09pm BP Systolic 114 mmHg BP Diastolic 60 mmHg Weight 251.00 lb 10/28/2016 4:01pm BP Systolic 120 mmHg BP Diastolic 74 mmHg Body Temperature 97.9 F 10/16/2016 2:57pm BP Systolic 120 mmHg BP Diastolic 80 mmHg Weight 250.00 lb with boots 08/19/2016 4:10pm BP Systolic 128 mmHg BP Diastolic 82 mmHg Weight 237.00 lb 07/18/2016 12:57pm BP Systolic 118 mmHg BP Diastolic 80 mmHg Weight 243.00 lb 05/29/2016 2:33pm BP Systolic 120 mmHg BP Diastolic 78 mmHg Body Temperature 97.6 F Weight 228.00 lb 05/20/2016 3:01pm BP Systolic 113 mmHg BP Diastolic 77 mmHg Heart Rate 96 /min Height 63.50 inches 5'3.50" Weight 235.00 lb BMI (Body Mass Index) 41.0 kg/m2 04/14/2016 4:22pm BP Systolic 116 mmHg BP Diastolic 62 mmHg Weight 237.00 lb 03/13/2016 1:57pm BP Systolic 118 mmHg BP Diastolic 70 mmHg Weight 230.00 lb 02/12/2016 1:14pm BP Systolic 105 mmHg right arm BP Diastolic 70 mmHg right arm Weight 237.00 lb 12/06/2015 3:53pm BP Systolic 125 mmHg BP Diastolic 70 mmHg Body Temperature 98.0 F Weight 204.00 lb with shoes 11/23/2015 2:54pm BP Systolic 128 mmHg BP Diastolic 66 mmHg Heart Rate 73 /min Body Temperature 98.1 F Weight 208.00 lb with shoes 11/12/2015 2:24pm BP Systolic 115 mmHg BP Diastolic 58 mmHg Height 64.25 inches 5'4.25" with shoes Weight 214.00 lb with shoes BMI (Body Mass Index) 36.4 kg/m2 11/02/2015 2:38pm BP Systolic 118 mmHg BP Diastolic 70 mmHg 11/01/2015 10:16am BP Systolic 132 mmHg BP Diastolic 90 mmHg Weight 218.00 lb 10/08/2015 9:44am BP Systolic 128 mmHg BP Diastolic 80 mmHg Weight 222.00 lb 08/06/2015 1:15pm BP Systolic 125 mmHg BP Diastolic 46 mmHg Heart Rate 92 /min Weight 222.00 lb 06/04/2015 2:00pm BP Systolic 120 mmHg BP Diastolic 82 mmHg Heart Rate 82 /min Weight 224.00 lb 05/09/2015 1:39pm BP Systolic 116 mmHg BP Diastolic 70 mmHg Body Temperature 98.1 F Weight 226.00 lb 05/02/2015 3:31pm BP Systolic 120 mmHg BP Diastolic 80 mmHg Height 64.25 inches 5'4.25" Weight 234.00 lb BMI (Body Mass Index) 39.8 kg/m2 02/01/2015 1:20pm BP Systolic 120 mmHg BP Diastolic 80 mmHg Body Temperature 97.4 F Weight 231.00 lb w/shoes 01/24/2015 4:16pm BP Systolic 122 mmHg BP Diastolic 80 mmHg Weight 235.50 lb 01/03/2015 1:20pm BP Systolic 124 mmHg BP Diastolic 76 mmHg Weight 238.00 lb 11/27/2014 1:35pm BP Systolic 122 mmHg BP Diastolic 80 mmHg Weight 236.00 lb 09/18/2014 1:53pm BP Systolic 126 mmHg BP Diastolic 78 mmHg Height 64.25 inches 5'4.25" Weight 236.00 lb BMI (Body Mass Index) 40.2 kg/m2 07/19/2014 1:33pm Weight 230.00 lb 04/17/2014 1:22pm BP Systolic 110 mmHg BP Diastolic 80 mmHg Weight 217.00 lb 03/16/2014 11:07am BP Systolic 114 mmHg BP Diastolic 76 mmHg Weight 220.00 lb 02/27/2014 3:44pm BP Systolic 124 mmHg BP Diastolic 78 mmHg 02/22/2014 2:05pm BP Systolic 118 mmHg BP Diastolic 72 mmHg Height 65 inches 5'5" Weight 225.00 lb BMI (Body Mass Index) 37.4 kg/m2 02/08/2014 4:18pm BP Systolic 118 mmHg BP Diastolic 76 mmHg Body Temperature 98.0 F Weight 228.00 lb 10/17/2013 1:45pm BP Systolic 89 mmHg BP Diastolic 77 mmHg Heart Rate 63 /min Weight 245.00 lb 09/28/2013 12:07pm BP Systolic 154 mmHg BP Diastolic 80 mmHg BP Systolic Recheck 137 mmHg pt alee'g self laugh BP Diastolic Recheck 104 mmHg pt alee'g self laugh Heart Rate 75 /min 63 Height 65 inches 5'5" shoes on Weight 245.00 lb shoes on BMI (Body Mass Index) 40.8 kg/m2 08/22/2013 3:56pm BP Systolic 135 mmHg BP Diastolic 78 mmHg Heart Rate 71 /min Body Temperature 97.9 F Weight 251.00 lb 03/30/2013 9:02am BP Systolic 135 mmHg BP Diastolic 78 mmHg Heart Rate 78 /min Height 64 inches 5'4" Weight 244.00 lb BMI (Body Mass Index) 41.9 kg/m2 02/03/2013 11:53am BP Systolic 123 mmHg BP Diastolic 79 mmHg Heart Rate 75 /min Weight 240.00 lb 12/14/2012 4:03pm BP Systolic 125 mmHg BP Diastolic 72 mmHg Heart Rate 59 /min Body Temperature 97.8 F Weight 237.00 lb 11/19/2012 4:34pm BP Systolic 156 mmHg BP Diastolic 75 mmHg BP Systolic Recheck 112 mmHg BP Diastolic Recheck 74 mmHg Heart Rate 84 /min 82 Respiratory Rate 94 /min Body Temperature 98.3 F Weight 237.00 lb 09/23/2012 11:24am BP Systolic 101 mmHg BP Diastolic 70 mmHg Heart Rate 65 /min Height 64 inches 5'4" Weight 238.00 lb BMI (Body Mass Index) 40.8 kg/m2 06/30/2012 3:34pm BP Systolic 152 mmHg BP Diastolic 87 mmHg BP Systolic Recheck 100 mmHg BP Diastolic Recheck 84 mmHg Heart Rate 89 /min 76 O2 % BldC Oximetry 98 % Body Temperature 98.4 F 03/03/2012 10:07am BP Systolic 117 mmHg BP Diastolic 76 mmHg Heart Rate 86 /min 02/20/2012 8:53am BP Systolic 123 mmHg BP Diastolic 70 mmHg Heart Rate 83 /min Height 64 inches 5'4" Weight 235.00 lb BMI (Body Mass Index) 40.3 kg/m2 02/12/2012 11:28am BP Systolic 126 mmHg BP Diastolic 79 mmHg Heart Rate 86 /min Weight 232.00 lb 12/10/2011 8:40am BP Systolic 128 mmHg BP Diastolic 71 mmHg Heart Rate 74 /min Weight 232.00 lb 11/27/2011 4:16pm BP Systolic 124 mmHg BP Diastolic 80 mmHg 11/19/2011 8:52am BP Systolic 137 mmHg BP Diastolic 88 mmHg Heart Rate 82 /min Body Temperature 97.9 F Height 64 inches 5'4" Weight 232.00 lb BMI (Body Mass Index) 39.8 kg/m2 07/18/2011 2:07pm BP Systolic 155 mmHg BP Diastolic 65 mmHg Heart Rate 80 /min Body Temperature 98.2 F Weight 214.00 lb Last Menstrual Period 0 06/19/2011 3:52pm BP Systolic 145 mmHg BP Diastolic 50 mmHg Heart Rate 58 /min Weight 218.00 lb 03/24/2011 11:49am BP Systolic 140 mmHg BP Diastolic 81 mmHg Heart Rate 85 /min Body Temperature 98.5 F Weight 206.00 lb Last Menstrual Period 0 02/07/2011 10:24am BP Systolic 134 mmHg BP Diastolic 59 mmHg Heart Rate 69 /min Height 64 inches 5'4" Weight 214.00 lb BMI (Body Mass Index) 36.7 kg/m2 01/14/2011 9:24am BP Systolic 116 mmHg BP Diastolic 82 mmHg Body Temperature 97.5 F Weight 212.00 lb Last Menstrual Period 0 12/16/2010 1:59pm BP Systolic 120 mmHg BP Diastolic 86 mmHg Body Temperature 98.0 F Weight 214.00 lb 11/04/2010 1:47pm BP Systolic 140 mmHg BP Diastolic 80 mmHg O2 % BldC Oximetry 97 % Body Temperature 98.0 F 10/31/2010 10:13am BP Systolic 131 mmHg BP Diastolic 73 mmHg Heart Rate 75 /min Weight 217.00 lb 09/18/2010 1:02pm BP Systolic 139 mmHg BP Diastolic 73 mmHg BP Systolic Recheck 146 mmHg BP Diastolic Recheck 91 mmHg Heart Rate 67 /min 63 09/11/2010 1:17pm BP Systolic 140 mmHg BP Diastolic 68 mmHg BP Systolic Recheck 118 mmHg BP Diastolic Recheck 60 mmHg Heart Rate 56 /min 54 O2 % BldC Oximetry 96 % Weight 219.00 lb 07/04/2010 3:24pm BP Systolic 92 mmHg BP Diastolic 58 mmHg Weight 212.00 lb 06/12/2010 11:46am BP Systolic 123 mmHg BP Diastolic 60 mmHg Heart Rate 60 /min Respiratory Rate 18 /min Body Temperature 98.4 F Weight 214.50 lb 06/07/2010 2:31pm BP Systolic 107 mmHg BP Diastolic 71 mmHg Heart Rate 89 /min Body Temperature 97.7 F Height 64 inches 5'4" Weight 210.00 lb BMI (Body Mass Index) 36.0 kg/m2 Last Menstrual Period 0 04/25/2010 10:39am BP Systolic 104 mmHg BP Diastolic 76 mmHg BP Systolic Recheck 120 mmHg BP Diastolic Recheck 78 mmHg Heart Rate 84 /min 04/22/2010 9:47am BP Systolic 120 mmHg BP Diastolic 65 mmHg Heart Rate 61 /min Weight 214.00 lb Last Menstrual Period 0 02/06/2010 8:53am BP Systolic 147 mmHg Pt was in hurry when she arrive BP Diastolic 71 mmHg Pt was in hurry when she arrive BP Systolic Recheck 116 mmHg BP Diastolic Recheck 76 mmHg Heart Rate 75 /min pulse 72 Weight 222.00 lb 12/26/2009 11:00am BP Systolic 165 mmHg BP Diastolic 72 mmHg BP Systolic Recheck 124 mmHg BP Diastolic Recheck 90 mmHg Heart Rate 57 /min Pulse: 62 O2 % BldC Oximetry 96 % 93, later as high as 98 Weight 229.00 lb 11/28/2009 8:37am BP Systolic 135 mmHg BP Diastolic 75 mmHg Heart Rate 71 /min Height 64 inches 5'4" Weight 236.00 lb BMI (Body Mass Index) 40.5 kg/m2 Results Test Date Facility Test Result H/L Range Note CBC Auto Diff 05/26/2018 [facility] White Blood 12.2 10^3/uL High 3.5 -10.8 [phone] Count Red Blood Count 4.69 10^6/uL N 4.00-5.40 [...] Cells % 0.1 Basic Metabolic Panel 05/26/2018 [facility] Sodium 142 mmol/L N 135- 222 [phone] Potassium 4.5 mmol/L N 3.5-5.0 Chloride 107 mmol/L N 101-111 Co2 Carbon Dioxide 24 mmol/L N 22-32 Anion Gap 11 mmol/L N 2-11 Glucose 113 mg/dL High 70-100 Blood Urea Nitrogen 24 mg/dL N 6-24 Creatinine 1.02 mg/dL High 0.51-0.95 BUN/Creatinine Ratio 23.5 High 8-20 Calcium 9.5 mg/dL N 8.6-10.3 Egfr Non- 54.7 >60 Egfr 66.2 >60 1 Type & Screen 05/26/2018 [facility] Patient Blood Type O Positive [phone] Antibody Screen NEGATIVE Basic Metabolic Panel 04/14/2018 [facility] Sodium 138 mmol/L N 135- 145 [phone] Potassium 4.6 mmol/L N 3.5-5.0 Chloride 101 mmol/L N 101-111 Co2 Carbon Dioxide 26 mmol/L N 22-32 Anion Gap 11 mmol/L N 2-11 Glucose 117 mg/dL High 70-100 Blood Urea Nitrogen 24 mg/dL N 6-24 Creatinine 0.92 mg/dL N 0.51-0.95 BUN/Creatinine Ratio 26.1 High 8-20 Calcium 9.8 mg/dL N 8.6-10.3 Egfr Non- 61.7 >60 Egfr 74.6 >60 2 Inr/Protime 04/14/2018 [facility] Inr 0.88 N 0.77-1.02 [phone] Laboratory test 04/14/2018 [facility] Partial 35.9 seconds N 26.0- 36.3 finding [phone] Thrombo Time PTT Type & Screen 04/14/2018 [facility] Patient Blood O Positive [phone] Type Antibody Screen NEGATIVE Laboratory test 04/14/2018 [facility] TSH (Thyroid 29.02 High 0.34- 5.60 finding [phone] Stim Horm) mcIU/mL Laboratory test 04/12/2018 In House Hemoglobin A1c 7.6 finding Laboratory test 04/12/2018 [facility] TSH (Thyroid 12.41 High 0.34- 5.60 finding [phone] Stim Horm) mcIU/mL Comp Metabolic 04/12/2018 [facility] Sodium 138 mmol/L N 135-145 Panel [phone] Potassium 4.5 mmol/L N 3.5-5.0 Chloride 103 mmol/L N 101-111 Co2 Carbon Dioxide 26 mmol/L N 22-32 Anion Gap 9 mmol/L N 2-11 Glucose 125 mg/dL High 70-100 Blood Urea Nitrogen 13 mg/dL N 6-24 Creatinine 0.77 mg/dL N 0.51-0.95 BUN/Creatinine Ratio 16.9 N 8-20 Calcium 9.4 mg/dL N 8.6-10.3 Total Protein 7.5 g/dL N 6.4-8.9 Albumin 4.1 g/dL N 3.2-5.2 Globulin 3.4 g/dL N 2-4 Albumin/Globulin Ratio 1.2 N 1-3 Total Bilirubin 0.30 mg/dL N 0.2-1.0 Alkaline Phosphatase 143 U/L High 34-104 Alt 30 U/L N 7-52 Ast 44 U/L High 13-39 Egfr Non- 75.7 >60 Egfr 91.6 >60 3 CBC Auto Diff 04/12/2018 [facility] White Blood Count 10.6 10^3/uL N 3.5-10.8 [phone] Red Blood Count 4.53 10^6/uL N 4.00-5.40 Hemoglobin 13.2 g/dL N 12.0-16.0 Hematocrit 39 % N 35-47 Mean Corpuscular Volume 87 fL N 80-97 Mean Corpuscular Hemoglobin 29 pg N 27-31 Mean Corpuscular HGB Conc 34 g/dL N 31-36 Red Cell Distribution Width 14 % N 10.5-15 Platelet Count 268 10^3/uL N 150-450 Mean Platelet Volume 8.9 um3 N 7.4-10.4 Abs Neutrophils 5.8 10^3/uL N 1.5-7.7 Abs Lymphocytes 3.8 10^3/uL N 1.0-4.8 Abs Monocytes 0.6 10^3/uL N 0-0.8 Abs Eosinophils 0.3 10^3/uL N 0-0.6 Abs Basophils 0.1 10^3/uL N 0-0.2 Abs Nucleated RBC 0 10^3/uL Granulocyte % 54.8 % N 38-83 Lymphocyte % 35.5 % N 25-47 Monocyte % 6.1 % N 0-7 Eosinophil % 2.9 % N 0-6 Basophil % 0.7 % N 0-2 Nucleated Red Blood Cells % 0 Lipid Profile (Trig/Chol/HDL) 04/12/2018 [facility] Triglycerides 250 mg/dL 4 [phone] Cholesterol 175 mg/dL 5 HDL Cholesterol 46.1 mg/dL 6 LDL Cholesterol 79 mg/dL 7 Urine Culture And 04/12/2018 [facility] Urine Culture SEE RESULT BELOW 8 Sensitivities [phone] Urinalysis Profile 04/12/2018 [facility] Urine Color Yellow [phone] Urine Appearance Cloudy Urine Specific [place] 1.015 N 1.010-1.030 Urine pH 5.0 N 5-9 Urine Urobilinogen Negative Negative Urine Ketones Negative Negative Urine Protein Negative Negative Urine Leukocytes Trace Abnormal Negative Urine Blood 1+ Abnormal Negative Urine Nitrite Negative Negative Urine Bilirubin Negative Negative Urine Glucose Negative Negative Urine White Blood Cell Trace(0-5/hpf) Absent Urine Red Blood Cell 1+(3-5/hpf) Abnormal Absent Urine Bacteria 1+ Abnormal Absent Urine Squamous Epithelial Cell Present Abnormal Absent Laboratory test 12/17/2017 In House Hemoglobin A1c 7.7 finding Laboratory test 10/02/2017 In House Hemoglobin A1c 7.8 finding Comp Metabolic Panel 05/08/2017 [facility] Sodium 138 mmol/L N 133- 145 [phone] Potassium 4.0 mmol/L N 3.5-5.0 Chloride 107 mmol/L N 101-111 Co2 Carbon Dioxide 27 mmol/L N 22-32 Anion Gap 4 mmol/L N 2-11 Glucose 123 mg/dL High 70-100 Blood Urea Nitrogen 20 mg/dL N 6-24 Creatinine 0.82 mg/dL N 0.51-0.95 BUN/Creatinine Ratio 24.4 High 8-20 Calcium 9.3 mg/dL N 8.6-10.3 Total Protein 6.9 g/dL N 6.4-8.9 Albumin 3.7 g/dL N 3.2-5.2 Globulin 3.2 g/dL N 2-4 Albumin/Globulin Ratio 1.2 N 1-3 Total Bilirubin 0.40 mg/dL N 0.2-1.0 Alkaline Phosphatase 149 U/L High 34-104 Alt 47 U/L N 7-52 Ast 59 U/L High 13-39 Egfr Non- 70.6 N >60 Egfr 90.8 N >60 9 CBC Auto Diff 05/08/2017 [facility] White Blood Count 10.1 10^3/uL N 3.5-10.8 [phone] Red Blood Count 4.56 10^6/uL N 4.0-5.4 Hemoglobin 13.2 g/dL N 12.0-16.0 Hematocrit 40 % N 35-47 Mean Corpuscular Volume 87 fL N 80-97 Mean Corpuscular Hemoglobin 29 pg N 27-31 Mean Corpuscular HGB Conc 33 g/dL N 31-36 Red Cell Distribution Width 14 % N 10.5-15 Platelet Count 259 10^3/uL N 150-450 Mean Platelet Volume 9 um3 N 7.4-10.4 Abs Neutrophils 5.4 10^3/uL N 1.5-7.7 Abs Lymphocytes 3.5 10^3/uL N 1.0-4.8 Abs Monocytes 0.7 10^3/uL N 0-0.8 Abs Eosinophils 0.4 10^3/uL N 0-0.6 Abs Basophils 0.1 10^3/uL N 0-0.2 Abs Nucleated RBC 0 10^3/uL N Granulocyte % 53.7 % N 38-83 Lymphocyte % 34.5 % N 25-47 Monocyte % 7.2 % N 1-9 Eosinophil % 3.8 % N 0-6 Basophil % 0.8 % N 0-2 Nucleated Red Blood Cells % 0 N Laboratory test 03/06/2017 In House Hemoglobin A1c 7.7 finding Comp Metabolic Panel 02/05/2017 [facility] Sodium 137 mmol/L N 133- 145 [phone] Potassium 4.2 mmol/L N 3.5-5.0 Chloride 101 mmol/L N 101-111 Co2 Carbon Dioxide 29 mmol/L N 22-32 Anion Gap 7 mmol/L N 2-11 Glucose 112 mg/dL High 70-100 Blood Urea Nitrogen 17 mg/dL N 6-24 Creatinine 0.80 mg/dL N 0.51-0.95 BUN/Creatinine Ratio 21.3 High 8-20 Calcium 9.7 mg/dL N 8.6-10.3 Total Protein 7.1 g/dL N 6.4-8.9 Albumin 4.1 g/dL N 3.2-5.2 Globulin 3.0 g/dL N 2-4 Albumin/Globulin Ratio 1.4 N 1-3 Total Bilirubin 0.30 mg/dL N 0.2-1.0 Alkaline Phosphatase 154 U/L High 34-104 Alt 54 U/L High 7-52 Ast 56 U/L High 13-39 Egfr Non- 72.7 N >60 Egfr 93.5 N >60 10 Laboratory test 02/05/2017 [facility] TSH (Thyroid 2.80 mcIU/mL N 0.34-5.60 finding [phone] Stim Horm) Laboratory test 12/04/2016 In House Hemoglobin A1c 8.7 finding Urine Microalbumin 08/26/2016 [facility] Urine 158.72 mg/dL N Random [phone] Creatinine Ur Microalbumin (mg/L) < 15.0 mg/L N Urine Microalbumin/Creatinine TNP ug/mg N <31 11 Laboratory test 08/26/2016 [facility] TSH (Thyroid 0.45 mcIU/mL N 0.34-5.60 finding [phone] Stim Horm) Vitamin B12 280 pg/mL N 180-914 12 Magnesium 1.9 mg/dL N 1.9-2.7 Comp Metabolic Panel 08/26/2016 [facility] Sodium 137 mmol/L N 133- 145 [phone] Potassium 3.8 mmol/L N 3.5-5.0 Chloride 102 mmol/L N 101-111 Co2 Carbon Dioxide 28 mmol/L N 22-32 Anion Gap 7 mmol/L N 2-11 Glucose 180 mg/dL High 70-100 Blood Urea Nitrogen 12 mg/dL N 6-24 Creatinine 0.78 mg/dL N 0.51-0.95 BUN/Creatinine Ratio 15.4 N 8-20 Calcium 9.9 mg/dL N 8.6-10.3 Total Protein 7.3 g/dL N 6.4-8.9 Albumin 4.2 g/dL N 3.2-5.2 Globulin 3.1 g/dL N 2-4 Albumin/Globulin Ratio 1.4 N 1-3 Total Bilirubin 0.30 mg/dL N 0.2-1.0 Alkaline Phosphatase 147 U/L High 34-104 Alt 63 U/L High 7-52 Ast 58 U/L High 13-39 Egfr Non- 74.8 N >60 Egfr 96.2 N >60 13 CBC Auto Diff 08/26/2016 [facility] White Blood 11.3 10^3/uL High 3.5 -10.8 [phone] Count Red Blood Count 5.04 10^6/uL N 4.0-5.4 Hemoglobin 13.7 g/dL N 12.0-16.0 Hematocrit 42 % N 35-47 Mean Corpuscular Volume 84 fL N 80-97 Mean Corpuscular Hemoglobin 27 pg N 27-31 Mean Corpuscular HGB Conc 32 g/dL N 31-36 Red Cell Distribution Width 14 % N 10.5-15 Platelet Count 344 10^3/uL N 150-450 Mean Platelet Volume 9 um3 N 7.4-10.4 Abs Neutrophils 5.7 10^3/uL N 1.5-7.7 Abs Lymphocytes 4.6 10^3/uL N 1.0-4.8 Abs Monocytes 0.7 10^3/uL N 0-0.8 Abs Eosinophils 0.3 10^3/uL N 0-0.6 Abs Basophils 0.1 10^3/uL N 0-0.2 Abs Nucleated RBC 0 10^3/uL N Granulocyte % 50.3 % N 38-83 Lymphocyte % 40.3 % N 25-47 Monocyte % 6.1 % N 1-9 Eosinophil % 2.5 % N 0-6 Basophil % 0.8 % N 0-2 Nucleated Red Blood Cells % 0 N Laboratory test 08/19/2016 In House Hemoglobin A1c 8.1 finding Xray 07/18/2016 [facility] X-Ray, Hips, 2 mod OA 14 View With Pelvis - Right Laboratory test 05/20/2016 In House Hemoglobin A1c 7.7 finding Laboratory test 05/20/2016 [facility] Vitamin B12 237 pg/mL N 180- 914 15 finding [phone] Comp Metabolic 05/20/2016 [facility] Sodium 139 mmol/L N 133-145 Panel [phone] Potassium 3.7 mmol/L N 3.5-5.0 Chloride 102 mmol/L N 101-111 Co2 Carbon Dioxide 26 mmol/L N 22-32 Anion Gap 11 mmol/L N 2-11 Glucose 159 mg/dL High 70-100 Blood Urea Nitrogen 19 mg/dL N 6-24 Creatinine 0.75 mg/dL N 0.51-0.95 BUN/Creatinine Ratio 25.3 High 8-20 Calcium 9.7 mg/dL N 8.6-10.3 Total Protein 7.5 g/dL N 6.4-8.9 Albumin 4.3 g/dL N 3.2-5.2 Globulin 3.2 g/dL N 2-4 Albumin/Globulin Ratio 1.3 N 1-3 Total Bilirubin 0.40 mg/dL N 0.2-1.0 Alkaline Phosphatase 162 U/L High 34-104 Alt 60 U/L High 7-52 Ast 93 U/L High 13-39 Egfr Non- 78.6 N >60 Egfr 101.0 N >60 16 CBC Auto Diff 05/20/2016 [facility] White Blood 14.0 10^3/uL High 3.5 -10.8 [phone] Count Red Blood Count 4.82 10^6/uL N 4.0-5.4 Hemoglobin 13.7 g/dL N 12.0-16.0 Hematocrit 42 % N 35-47 Mean Corpuscular Volume 87 fL N 80-97 Mean Corpuscular Hemoglobin 29 pg N 27-31 Mean Corpuscular HGB Conc 33 g/dL N 31-36 Red Cell Distribution Width 13 % N 10.5-15 Platelet Count 329 10^3/uL N 150-450 Mean Platelet Volume 9 um3 N 7.4-10.4 Abs Neutrophils 8.6 10^3/uL High 1.5-7.7 Abs Lymphocytes 4.1 10^3/uL N 1.0-4.8 Abs Monocytes 1.0 10^3/uL High 0-0.8 Abs Eosinophils 0.3 10^3/uL N 0-0.6 Abs Basophils 0 10^3/uL N 0-0.2 Abs Nucleated RBC 0.04 10^3/uL N Granulocyte % 61.3 % N 38-83 Lymphocyte % 29.2 % N 25-47 Monocyte % 7.1 % N 1-9 Eosinophil % 2.1 % N 0-6 Basophil % 0.3 % N 0-2 Nucleated Red Blood Cells % 0.3 N Laboratory test 05/20/2016 [facility] TSH (Thyroid 1.23 mcIU/mL N 0.34-5.60 finding [phone] Stim Horm) Free T4 (Free Thyroxine) 1.55 ng/dL High 0.61-1.12 T3 Free 4.20 pg/mL High 2.5-3.9 Magnesium 1.8 mg/dL Low 1.9-2.7 CBC Auto Diff 02/12/2016 [facility] White Blood 11.2 10^3/uL High 3.5 -10.8 [phone] Count Red Blood Count 4.62 10^6/uL N 4.0-5.4 Hemoglobin 13.8 g/dL N 12.0-16.0 Hematocrit 42 % N 35-47 Mean Corpuscular Volume 90 fL N 80-97 Mean Corpuscular Hemoglobin 30 pg N 27-31 Mean Corpuscular HGB Conc 33 g/dL N 31-36 Red Cell Distribution Width 17 % High 10.5-15 Platelet Count 319 10^3/uL N 150-450 Mean Platelet Volume 9 um3 N 7.4-10.4 Abs Neutrophils 6.1 10^3/uL N 1.5-7.7 Abs Lymphocytes 4.0 10^3/uL N 1.0-4.8 Abs Monocytes 0.6 10^3/uL N 0-0.8 Abs Eosinophils 0.4 10^3/uL N 0-0.6 Abs Basophils 0.1 10^3/uL N 0-0.2 Abs Nucleated RBC 0.01 10^3/uL N Granulocyte % 54.1 % N 38-83 Lymphocyte % 35.7 % N 25-47 Monocyte % 5.2 % N 1-9 Eosinophil % 3.9 % N 0-6 Basophil % 1.1 % N 0-2 Nucleated Red Blood Cells % 0.1 N Comp Metabolic Panel 02/12/2016 [facility] Sodium 138 mmol/L N 133- 145 [phone] Potassium 4.5 mmol/L N 3.5-5.0 Chloride 101 mmol/L N 101-111 Co2 Carbon Dioxide 28 mmol/L N 22-32 Anion Gap 9 mmol/L N 2-11 Glucose 138 mg/dL High 70-100 Blood Urea Nitrogen 20 mg/dL N 6-24 Creatinine 1.14 mg/dL High 0.51-0.95 BUN/Creatinine Ratio 17.5 N 8-20 Calcium 10.3 mg/dL N 8.6-10.3 Total Protein 7.7 g/dL N 6.4-8.9 Albumin 4.5 g/dL N 3.2-5.2 Globulin 3.2 g/dL N 2-4 Albumin/Globulin Ratio 1.4 N 1-3 Total Bilirubin 0.30 mg/dL N 0.2-1.0 Alkaline Phosphatase 161 U/L High 34-104 Alt 49 U/L N 7-52 Ast 65 U/L High 13-39 Egfr Non- 48.5 N >60 Egfr 62.3 N >60 17 Laboratory test 02/12/2016 [facility] TSH (Thyroid 186.58 High 0.34- 5.60 finding [phone] Stim Horm) ?IU/mL T3 Free 1.90 pg/mL Low 2.5-3.9 Free T4 (Free Thyroxine) < 0.25 ng/dL Low 0.61-1.12 Magnesium 1.9 mg/dL N 1.9-2.7 Laboratory test 02/12/2016 In House Hemoglobin A1c 8.7 finding Laboratory test 12/07/2015 [facility] TSH (Thyroid Stim 0.24 Low 0.34 -5. finding [phone] Horm) ?IU/mL 60 Magnesium 2.0 mg/dL N 1.9-2.7 Ferritin 231.6 ng/mL N 11-307 CBC Auto Diff 12/07/2015 [facility] White Blood 13.4 10^3/uL High 3.5 -10.8 [phone] Count Red Blood Count 5.44 10^6/uL High 4.0-5.4 Hemoglobin 15.0 g/dL N 12.0-16.0 Hematocrit 46 % N 35-47 Mean Corpuscular Volume 84 fL N 80-97 Mean Corpuscular Hemoglobin 28 pg N 27-31 Mean Corpuscular HGB Conc 33 g/dL N 31-36 Red Cell Distribution Width 14 % N 10.5-15 Platelet Count 360 10^3/uL N 150-450 Mean Platelet Volume 9 um3 N 7.4-10.4 Abs Neutrophils 7.4 10^3/uL N 1.5-7.7 Abs Lymphocytes 5.0 10^3/uL High 1.0-4.8 Abs Monocytes 0.8 10^3/uL N 0-0.8 Abs Eosinophils 0.1 10^3/uL N 0-0.6 Abs Basophils 0.1 10^3/uL N 0-0.2 Abs Nucleated RBC 0.01 10^3/uL N Granulocyte % 55.1 % N 38-83 Lymphocyte % 37.3 % N 25-47 Monocyte % 6.2 % N 1-9 Eosinophil % 0.9 % N 0-6 Basophil % 0.5 % N 0-2 Nucleated Red Blood Cells % 0.1 N Comp Metabolic Panel 12/07/2015 [facility] Sodium 138 mmol/L N 133- 145 [phone] Potassium 4.1 mmol/L N 3.5-5.0 Chloride 103 mmol/L N 101-111 Co2 Carbon Dioxide 26 mmol/L N 22-32 Anion Gap 9 mmol/L N 2-11 Glucose 149 mg/dL High 70-100 Blood Urea Nitrogen 17 mg/dL N 6-24 Creatinine 0.76 mg/dL N 0.51-0.95 BUN/Creatinine Ratio 22.4 High 8-20 Calcium 10.2 mg/dL N 8.6-10.3 Total Protein 7.8 g/dL N 6.4-8.9 Albumin 4.5 g/dL N 3.2-5.2 Globulin 3.3 g/dL N 2-4 Albumin/Globulin Ratio 1.4 N 1-3 Total Bilirubin 0.40 mg/dL N 0.2-1.0 Alkaline Phosphatase 160 U/L High 34-104 Alt 70 U/L High 7-52 Ast 59 U/L High 13-39 Egfr Non- 77.4 N >60 Egfr 99.5 N >60 18 Urine Micro Inhouse 12/06/2015 In House Ua WBC 20-30 19 Ua RBC - Ua Casts - Ua Epi 0-1 Ua Other some WBC clumps, bacteria Ua Glucose - Ua Bilirubin - Ua Ketones - Ua Specific [place] 1.030 Ua Blood - Ua PH 5.0 Ua Protein - Ua Urobilinogen - Ua Nitrite - Ua Leukocytes - Culture Urine 12/06/2015 In House Colonies 10 Inhouse CBC Auto Diff 11/23/2015 [facility] White Blood 11.0 10^3/uL High 3.5 -10.8 [phone] Count Red Blood Count 5.23 10^6/uL N 4.0-5.4 Hemoglobin 14.5 g/dL N 12.0-16.0 Hematocrit 44 % N 35-47 Mean Corpuscular Volume 84 fL N 80-97 Mean Corpuscular Hemoglobin 28 pg N 27-31 Mean Corpuscular HGB Conc 33 g/dL N 31-36 Red Cell Distribution Width 14 % N 10.5-15 Platelet Count 324 10^3/uL N 150-450 Mean Platelet Volume 9 um3 N 7.4-10.4 Abs Neutrophils 5.2 10^3/uL N 1.5-7.7 Abs Lymphocytes 4.7 10^3/uL N 1.0-4.8 Abs Monocytes 0.7 10^3/uL N 0-0.8 Abs Eosinophils 0.3 10^3/uL N 0-0.6 Abs Basophils 0.1 10^3/uL N 0-0.2 Abs Nucleated RBC 0.01 10^3/uL N Granulocyte % 47.6 % N 38-83 Lymphocyte % 42.7 % N 25-47 Monocyte % 6.5 % N 1-9 Eosinophil % 2.6 % N 0-6 Basophil % 0.6 % N 0-2 Nucleated Red Blood Cells % 0.1 N Comp Metabolic Panel 11/23/2015 [facility] Sodium 138 mmol/L N 133- 145 [phone] Potassium 5.0 mmol/L N 3.5-5.0 Chloride 102 mmol/L N 101-111 Co2 Carbon Dioxide 27 mmol/L N 22-32 Anion Gap 9 mmol/L N 2-11 Glucose 147 mg/dL High 70-100 Blood Urea Nitrogen 12 mg/dL N 6-24 Creatinine 0.69 mg/dL N 0.51-0.95 BUN/Creatinine Ratio 17.4 N 8-20 Calcium 9.9 mg/dL N 8.6-10.3 Total Protein 7.6 g/dL N 6.4-8.9 Albumin 4.4 g/dL N 3.2-5.2 Globulin 3.2 g/dL N 2-4 Albumin/Globulin Ratio 1.4 N 1-3 Total Bilirubin 0.40 mg/dL N 0.2-1.0 Alkaline Phosphatase 199 U/L High 34-104 Alt 42 U/L N 7-52 Ast 40 U/L High 13-39 Egfr Non- 86.5 N >60 Egfr 111.2 N >60 20 Laboratory test 11/23/2015 [facility] Vitamin D Total 35.7 ng/mL N 30 -50 finding [phone] 25(Oh) Vitamin B12 267 pg/mL N 180-914 21 Magnesium 2.1 mg/dL N 1.9-2.7 Laboratory test 11/12/2015 In House Hemoglobin A1c 9.4 finding Laboratory test 11/01/2015 [facility] Monospot Negative N Negative finding [phone] Pathologist Review (SEE NOTE) N 22 Urinalysis Profile 11/01/2015 [facility] Urine Color Yellow N [phone] Urine Appearance Cloudy N Urine Specific [place] 1.006 Low 1.010-1.030 Urine pH 5.0 N 5-9 Urine Urobilinogen Negative N Negative Urine Ketones Negative N Negative Urine Protein Negative N Negative Urine Leukocytes Negative N Negative Urine Blood Negative N Negative * * Abnormal Negative 23 Urine Nitrite Negative N Negative Urine Bilirubin Negative N Negative Urine Glucose 1+(50 mg/dL) Abnormal Negative Manual Differential 11/01/2015 [facility] Immature Granulocytes 1 % N 0-9 [phone] Neutrophil % 57 % N 38-83 Lymphocytes % 21 % Low 25-47 Monocytes % 5 % N 0-13 Eosinophils % 1 % N 0-6 Reactive Lymph % 15 % High 0-6 24 Metamyelocytes % 1 % N 0-2 Macrocytosis 2+ N Laboratory test finding 11/01/2015 [facility] Magnesium 1.7 mg/dL Low 1.9-2.7 [phone] Troponin-I (TnI) 0.00 ng/mL N <0.03 25 TSH (Thyroid Stim Horm) 0.35 ?IU/mL N 0.34-5.60 Comp Metabolic Panel 11/01/2015 [facility] Sodium 131 mmol/L Low 133- 145 [phone] Potassium 4.0 mmol/L N 3.5-5.0 Chloride 98 mmol/L Low 101-111 Co2 Carbon Dioxide 25 mmol/L N 22-32 Anion Gap 8 mmol/L N 2-11 Glucose 281 mg/dL High 70-100 Blood Urea Nitrogen 18 mg/dL N 6-24 Creatinine 0.77 mg/dL N 0.51-0.95 BUN/Creatinine Ratio 23.4 High 8-20 Calcium 9.5 mg/dL N 8.6-10.3 Total Protein 7.4 g/dL N 6.4-8.9 Albumin 4.0 g/dL N 3.2-5.2 Globulin 3.4 g/dL N 2-4 Albumin/Globulin Ratio 1.2 N 1-3 Total Bilirubin 0.30 mg/dL N 0.2-1.0 Alkaline Phosphatase 167 U/L High 34-104 Alt 26 U/L N 7-52 Ast 24 U/L N 13-39 Egfr Non- 76.2 N >60 Egfr 98.0 N >60 26 Laboratory test 11/01/2015 [facility] Lactic Acid 2.2 mmol/L High 0.5 -2.0 27 finding [phone] CBC Auto Diff 11/01/2015 [facility] White Blood 16.3 10^3/uL High 3.5 -10.8 [phone] Count Red Blood Count 4.71 10^6/uL N 4.0-5.4 Hemoglobin 12.9 g/dL N 12.0-16.0 Hematocrit 40 % N 35-47 Mean Corpuscular Volume 85 fL N 80-97 Mean Corpuscular Hemoglobin 27 pg N 27-31 Mean Corpuscular HGB Conc 32 g/dL N 31-36 Red Cell Distribution Width 14 % N 10.5-15 Platelet Count 317 10^3/uL N 150-450 Mean Platelet Volume 9 um3 N 7.4-10.4 Abs Neutrophils 9.2 10^3/uL High 1.5-7.7 Abs Lymphocytes 5.5 10^3/uL High 1.0-4.8 Abs Monocytes 1.3 10^3/uL High 0-0.8 Abs Eosinophils 0.3 10^3/uL N 0-0.6 Abs Basophils 0.1 10^3/uL N 0-0.2 Abs Nucleated RBC 0 10^3/uL N Granulocyte % 56.1 % N 38-83 Lymphocyte % 33.5 % N 25-47 Monocyte % 8.1 % N 1-9 Eosinophil % 2.0 % N 0-6 Basophil % 0.3 % N 0-2 Nucleated Red Blood Cells % 0 N Lipid Profile 10/08/2015 [facility] Triglycerides 219 mg/dL N 28 (Trig/Chol/HDL) [phone] Cholesterol 139 mg/dL N 29 HDL Cholesterol 34.7 mg/dL N 30 LDL Cholesterol 61 mg/dL N 31 CBC Auto Diff 10/08/2015 [facility] White Blood Count 10.4 10^3/uL N 3.5-10.8 [phone] Red Blood Count 4.73 10^6/uL N 4.0-5.4 Hemoglobin 13.1 g/dL N 12.0-16.0 Hematocrit 40 % N 35-47 Mean Corpuscular Volume 85 fL N 80-97 Mean Corpuscular Hemoglobin 28 pg N 27-31 Mean Corpuscular HGB Conc 33 g/dL N 31-36 Red Cell Distribution Width 13 % N 10.5-15 Platelet Count 250 10^3/uL N 150-450 Mean Platelet Volume 9 um3 N 7.4-10.4 Abs Neutrophils 5.4 10^3/uL N 1.5-7.7 Abs Lymphocytes 3.9 10^3/uL N 1.0-4.8 Abs Monocytes 0.8 10^3/uL N 0-0.8 Abs Eosinophils 0.3 10^3/uL N 0-0.6 Abs Basophils 0.1 10^3/uL N 0-0.2 Abs Nucleated RBC 0.02 10^3/uL N Granulocyte % 51.6 % N 38-83 Lymphocyte % 37.0 % N 25-47 Monocyte % 8.0 % N 1-9 Eosinophil % 2.9 % N 0-6 Basophil % 0.5 % N 0-2 Nucleated Red Blood Cells % 0.1 N Comp Metabolic Panel 10/08/2015 [facility] Sodium 136 mmol/L N 133- 145 [phone] Potassium 4.3 mmol/L N 3.5-5.0 Chloride 101 mmol/L N 101-111 Co2 Carbon Dioxide 28 mmol/L N 22-32 Anion Gap 7 mmol/L N 2-11 Glucose 276 mg/dL High 70-100 Blood Urea Nitrogen 13 mg/dL N 6-24 Creatinine 0.59 mg/dL N 0.51-0.95 BUN/Creatinine Ratio 22.0 High 8-20 Calcium 9.1 mg/dL N 8.6-10.3 Total Protein 6.6 g/dL N 6.4-8.9 Albumin 3.9 g/dL N 3.2-5.2 Globulin 2.7 g/dL N 2-4 Albumin/Globulin Ratio 1.4 N 1-3 Total Bilirubin 0.30 mg/dL N 0.2-1.0 Alkaline Phosphatase 190 U/L High 34-104 Alt 18 U/L N 7-52 Ast 19 U/L N 13-39 Egfr Non- 103.6 N >60 Egfr 133.3 N >60 32 Laboratory test finding 10/08/2015 [facility] Vitamin B12 216 pg/mL N 180-914 33 [phone] Vitamin D Total 25(Oh) 16.4 ng/mL Low 30-50 34 Laboratory test 08/06/2015 In House Hemoglobin A1c 6.8 finding Urine Microalbumin 08/06/2015 [facility] Ur Microalbumin (mg/L) 9.0 mg/ L N Random [phone] Urine Creatinine 80.45 mg/dL N Urine Microalbumin/Creatinine 11.1 ug/mg N <31 CBC Auto Diff 08/06/2015 [facility] White Blood 11.8 10^3/uL High 4.8 -10.8 [phone] Count Red Blood Count 4.91 10^6/uL N 4.0-5.4 Hemoglobin 14.0 g/dL N 12.0-16.0 Hematocrit 43 % N 35-47 Mean Corpuscular Volume 87 fL N 80-97 Mean Corpuscular Hemoglobin 29 pg N 27-31 Mean Corpuscular HGB Conc 33 g/dL N 31-36 Red Cell Distribution Width 13 % N 10.5-15 Platelet Count 304 10^3/uL N 150-450 Mean Platelet Volume 9 um3 N 7.4-10.4 Abs Neutrophils 7.0 10^3/uL N 1.5-7.7 Abs Lymphocytes 3.3 10^3/uL N 1.0-4.8 Abs Monocytes 0.9 10^3/uL High 0-0.8 Abs Eosinophils 0.5 10^3/uL N 0-0.6 Abs Basophils 0.1 10^3/uL N 0-0.2 Abs Nucleated RBC 0.01 10^3/uL N Granulocyte % 59.6 % N 38-83 Lymphocyte % 28.3 % N 25-47 Monocyte % 7.6 % N 1-9 Eosinophil % 4.0 % N 0-6 Basophil % 0.5 % N 0-2 Nucleated Red Blood Cells % 0 N Laboratory 08/06/2015 [facility] TSH (Thyroid 0.14 Low 0.34-5.60 test finding [phone] Stim Horm) ?IU/mL Laboratory 05/02/2015 In House Hemoglobin A1c 8.6 test finding Laboratory 03/29/2015 [facility] TSH (Thyroid 0.58 N 0.34-5.60 test finding [phone] Stim Horm) ?IU/mL Laboratory 02/01/2015 [facility] TSH (Thyroid 0.13 Low 0.34-5.60 test finding [phone] Stim Horm) ?IU/mL Alkaline Phos 02/01/2015 [facility] Alkaline 186 U/L Abnormal 46 - 118 Isoenzymes [phone] Phosphatase Alp Liver 1% 65.4 % N 27.8-76.3 Alp Liver 1 121.6 IU/L Abnormal 16.2-70.2 Alp Liver 2% 7.4 % N 0.0-8.0 Alp Liver 2 13.8 IU/L Abnormal 0.0-5.8 Alp Bone % 23.7 % N 19.1-67.7 Alp Bone 44.1 IU/L Abnormal 12.1-42.7 Alp Intestine % 3.5 % N 0.0-20.6 Alp Intestine 6.5 IU/L N 0.0-11.0 Alp Placental NotPresent N 35 Laboratory test 01/03/2015 In House Hemoglobin A1c 9.5 finding Laboratory test 11/27/2014 In House Hemoglobin A1c 8.2 finding Comp Metabolic Panel 11/27/2014 [facility] Sodium 134 mmol/L N 133- 145 [phone] Potassium 4.2 mmol/L N 3.5-5.0 Chloride 99 mmol/L Low 101-111 Co2 Carbon Dioxide 27 mmol/L N 22-32 Anion Gap 8 mmol/L N 2-11 Glucose 235 mg/dL High 70-100 Blood Urea Nitrogen 19 mg/dL N 6-24 Creatinine 0.76 mg/dL N 0.51-0.95 BUN/Creatinine Ratio 25.0 High 8-20 Calcium 9.6 mg/dL N 8.6-10.3 Total Protein 7.2 g/dL N 6.4-8.9 Albumin 4.0 g/dL N 3.2-5.2 Globulin 3.2 g/dL N 2-4 Albumin/Globulin Ratio 1.3 N 1-3 Total Bilirubin 0.30 mg/dL N 0.2-1.0 Alkaline Phosphatase 165 U/L High 34-104 Alt 22 U/L N 7-52 Ast 25 U/L N 13-39 Egfr Non- 77.6 N >60 Egfr 99.8 N >60 36 Laboratory test 11/27/2014 [facility] TSH (Thyroid 0.07 IU/mL Low 0.34-5.60 finding [phone] Stimulating Horm) Laboratory test 07/19/2014 In House Hemoglobin A1c 7.1 finding Glucose 155 Order 07/19/2014 [facility] Ua inhouse not able to void glucose, quantitative inhouse 150 Hemoglobin A1c 7.1 Ua Inhouse 07/19/2014 In House Ua Glucose - Ua Bilirubin - Ua Ketones - Ua Specific Carson 1.010 Ua Blood sm Ua PH 5.0 Ua Protein - Ua Urobilinogen - Ua Nitrite - Ua Leukocytes - Urine Microalbumin 04/17/2014 [facility] Ur Microalbumin 18.0 mg/dL N <30 37 Random [phone] (mg/L) Urine Creatinine 169.91 mg/dL N Urine Microalbumin/Creatinine 10.5 N Less Than 31 Laboratory 04/17/2014 [facility] Hepatitis C Nonreactive N Nonreactive test finding [phone] Antibody Laboratory 04/17/2014 In House Glucose 130 test finding Quantitative Hemoglobin A1c 12.8 Laboratory test finding 03/13/2014 [facility] Triglycerides 289 mg/dL N 38, 39 [phone] Glucose 343 mg/dL High 70-100 40 Laboratory test 02/27/2014 In House Glucose Quantitative 340 41 finding Laboratory test 02/22/2014 [facility] TSH (Thyroid 2.80 IU/mL 0.34- 5. finding [phone] Stimulating Horm) 60 Lipid Profile 02/22/2014 [facility] Triglycerides 424 mg/dL 42 (Trig/Chol/HDL) [phone] Cholesterol 214 mg/dL 43 HDL Cholesterol 31.4 mg/dL 44 LDL Cholesterol (SEE NOTE) mg/dL 45 CBC Auto Diff 02/22/2014 [facility] White Blood Count 10.3 10^3/uL 4.8-10.8 [phone] Red Blood Count 5.08 10^6/uL 4.0-5.4 Hemoglobin 15.2 g/dL 12.0-16.0 Hematocrit 44 % 35-47 Mean Corpuscular Volume 87 fL 80-97 Mean Corpuscular Hemoglobin 30 pg 27-31 Mean Corpuscular HGB Conc 35 g/dL 31-36 Red Cell Distribution Width 13 % 10.5-15 Platelet Count 280 10^3/uL 150-450 Mean Platelet Volume 10 um3 7.4-10.4 Abs Neutrophils 5.9 10^3/uL 1.5-7.7 Abs Lymphocytes 3.4 10^3/uL 1.0-4.8 Abs Monocytes 0.8 10^3/uL 0-0.8 Abs Eosinophils 0.2 10^3/uL 0-0.6 Abs Basophils 0.1 10^3/uL 0-0.2 Abs Nucleated RBC 0 10^3/uL Granulocyte % 56.8 % 38-83 Lymphocyte % 32.8 % 25-47 Monocyte % 8.0 % 1-9 Eosinophil % 1.5 % 0-6 Basophil % 0.9 % 0-2 Nucleated Red Blood Cells % 0 Comp Metabolic Panel 02/22/2014 [facility] Sodium 132 mmol/L Low 133- 145 [phone] Potassium 4.4 mmol/L 3.7-5.6 Chloride 97 mmol/L Low 101-111 Co2 Carbon Dioxide 25 mmol/L 22-32 Anion Gap 10 mmol/L 2-11 Glucose 456 mg/dL High 70-100 Blood Urea Nitrogen 13 mg/dL 6-24 Creatinine 0.85 mg/dL 0.51-0.95 BUN/Creatinine Ratio 15.3 8-20 Calcium 10.0 mg/dL 8.6-10.3 Total Protein 7.3 g/dL 6.4-8.9 Albumin 4.2 g/dL 3.2-5.2 Globulin 3.1 g/dL 2-4 Albumin/Globulin Ratio 1.4 1-3 Total Bilirubin 0.50 mg/dL 0.2-1.0 Alkaline Phosphatase 159 U/L High 34-104 Alt 44 U/L 7-52 Ast 34 U/L 13-39 Egfr Non- 68.5 >60 Egfr 88.0 >60 46 Laboratory test 02/22/2014 [facility] Hemoglobin A1c 15.3 % High Less than 47 finding [phone] 6.0 Laboratory test 12/30/2013 [facility] Stool Culture (SEE NOTE) 48 finding [phone] Stool For Blood 12/30/2013 [facility] Stool Occult (SEE NOTE) 49 [phone] Blood Laboratory test 12/30/2013 [facility] C. difficile (SEE NOTE) 50 finding [phone] Amplified Dna Stool For Blood 09/06/2013 [facility] Stool Occult (SEE NOTE) 51 [phone] Blood Laboratory test 09/06/2013 [facility] C. difficile (SEE NOTE) 52 finding [phone] Amplified Dna Stool Culture (SEE NOTE) 53 CBC Auto Diff 09/05/2013 [facility] White Blood 14.1 10^3/uL High 4.8 -10.8 [phone] Count Red Blood Count 4.93 10^6/uL 4.0-5.4 Hemoglobin 14.3 g/dL 12.0-16.0 Hematocrit 44 % 35-47 Mean Corpuscular Volume 89 fL 80-97 Mean Corpuscular Hemoglobin 29 pg 27-31 Mean Corpuscular HGB Conc 33 g/dL 31-36 Red Cell Distribution Width 14 % 10.5-15 Platelet Count 315 10^3/uL 150-450 Mean Platelet Volume 9 um3 7.4-10.4 Abs Neutrophils 7.7 10^3/uL 1.5-7.7 Abs Lymphocytes 4.8 10^3/uL 1.0-4.8 Abs Monocytes 1.1 10^3/uL High 0-0.8 Abs Eosinophils 0.4 10^3/uL 0-0.6 Abs Basophils 0.1 10^3/uL 0-0.2 Abs Nucleated RBC 0.03 10^3/uL Granulocyte % 54.5 % 38-83 Lymphocyte % 33.9 % 25-47 Monocyte % 8.0 % 1-9 Eosinophil % 3.1 % 0-6 Basophil % 0.5 % 0-2 Nucleated Red Blood Cells % 0.2 Comp Metabolic Panel 09/05/2013 [facility] Sodium 139 mmol/L 133- 145 [phone] Potassium 3.5 mmol/L 3.5-5.0 Chloride 100 mmol/L Low 101-111 Co2 Carbon Dioxide 25.0 mmol/L 22-32 Anion Gap 14.0 mmol/L High 2-11 Glucose 85 mg/dL 70-100 Blood Urea Nitrogen 10 mg/dL 6-24 Creatinine 1.00 mg/dL 0.50-1.40 BUN/Creatinine Ratio 10.0 8-20 Calcium 9.9 mg/dL 8.1-9.9 Total Protein 8.0 g/dL 6.2-8.1 Albumin 4.3 g/dL 3.6-5.4 Globulin 3.7 g/dL 2-4 Albumin/Globulin Ratio 1.2 1-3 Total Bilirubin 0.5 mg/dL 0.4-1.5 Alkaline Phosphatase 171 U/L High 30-110 Alt 54 U/L 14-54 Ast 47 U/L High 12-42 Egfr Non- 56.7 >60 Egfr 73.0 >60 54 Laboratory test finding 09/05/2013 [facility] Lipase 12 U/L Low 22- 51 [phone] C Reactive Protein 4.6 mg/dL High Less than 0.5 Laboratory test 04/20/2013 [facility] Surgical Pathology RUN DATE: 55 finding [phone] 04/25/ <SEE NOTE> Ua Inhouse 03/30/2013 In House Ua Glucose - Ua Bilirubin - Ua Ketones - Ua Specific Carson 1.020 Ua Blood sm Ua PH 6.0 Ua Protein - Ua Urobilinogen - Ua Nitrite - Ua Leukocytes - Laboratory test 02/03/2013 [facility] Hemoglobin A1c 6.3 % High Less than 56, 57 finding [phone] 6.0 CBC Auto Diff 02/03/2013 [facility] White Blood 9.7 4.8-10.8 [phone] Count 10^3/uL Red Blood Count 4.52 10^6/uL 4.0-5.4 Hemoglobin 13.8 g/dL 12.0-16.0 Hematocrit 41 % 35-47 Mean Corpuscular Volume 91 fL 80-97 Mean Corpuscular Hemoglobin 31 pg 27-31 Mean Corpuscular HGB Conc 34 g/dL 31-36 Red Cell Distribution Width 13 % 10.5-15 Platelet Count 247 10^3/uL 150-450 Mean Platelet Volume 9 um3 7.4-10.4 Abs Neutrophils 5.5 10^3/uL 1.5-7.7 Abs Lymphocytes 3.0 10^3/uL 1.0-4.8 Abs Monocytes 0.9 10^3/uL High 0-0.8 Abs Eosinophils 0.3 10^3/uL 0-0.6 Abs Basophils 0.1 10^3/uL 0-0.2 Abs Nucleated RBC 0 10^3/uL Granulocyte % 56.2 % 38-83 Lymphocyte % 30.9 % 25-47 Monocyte % 8.8 % 1-9 Eosinophil % 3.5 % 0-6 Basophil % 0.6 % 0-2 Nucleated Red Blood Cells % 0 Comp Metabolic Panel 02/03/2013 [facility] Sodium 140 mmol/L 133- 145 [phone] Potassium 4.4 mmol/L 3.5-5.0 Chloride 106 mmol/L 101-111 Co2 Carbon Dioxide 27.0 mmol/L 22-32 Anion Gap 7.0 mmol/L 2-11 Glucose 134 mg/dL High 70-100 Blood Urea Nitrogen 17 mg/dL 6-24 Creatinine 0.90 mg/dL 0.50-1.40 BUN/Creatinine Ratio 18.9 8-20 Calcium 9.4 mg/dL 8.1-9.9 Total Protein 7.2 g/dL 6.2-8.1 Albumin 3.6 g/dL 3.6-5.4 Globulin 3.6 g/dL 2-4 Albumin/Globulin Ratio 1.0 1-3 Total Bilirubin 0.5 mg/dL 0.4-1.5 Alkaline Phosphatase 140 U/L High 30-110 Alt 43 U/L 14-54 Ast 39 U/L 12-42 Egfr Non- 64.3 >60 Egfr 82.7 >60 58 Lipid Profile 02/03/2013 [facility] Triglycerides 250 mg/dL High 40- 200 (Trig/Chol/HDL) [phone] Cholesterol 184 mg/dL Less than 200 HDL Cholesterol 45 mg/dL 40-60 59 Cholesterol/HDL Ratio 4.1 Average 1-4.44 LDL Cholesterol 89.0 mg/dL Less Than 100 60 Laboratory test 02/03/2013 [facility] TSH (Thyroid 1.66 miu/mL 0.34- 5.60 61 finding [phone] Stimulating Horm) Basic Metabolic 12/29/2012 [facility] Sodium 137 mmol/L 133-145 Panel [phone] Potassium 4.5 mmol/L 3.5-5.0 Chloride 103 mmol/L 101-111 Co2 Carbon Dioxide 28.0 mmol/L 22-32 Anion Gap 6.0 mmol/L 2-11 Glucose 102 mg/dL High 70-100 Blood Urea Nitrogen 16 mg/dL 6-24 Creatinine 0.90 mg/dL 0.50-1.40 BUN/Creatinine Ratio 17.8 8-20 Calcium 9.6 mg/dL 8.1-9.9 Egfr Non- 64.3 >60 Egfr 82.7 >60 62 Ua Inhouse 12/14/2012 In House Ua Glucose - Ua Bilirubin - Ua Ketones - Ua Specific Carson 1.010 Ua Blood lrg Ua PH 6.0 Ua Protein tr Ua Urobilinogen - Ua Nitrite - Ua Leukocytes - Laboratory 06/17/2012 [facility] TSH (Thyroid 65.47 miu/mL High 0.34- 5.60 test finding [phone] Stimulating Horm) Laboratory 06/14/2012 [facility] TSH (Thyroid 48.84 MIU/ML High 0.34- 5.60 63 test finding [phone] Stimulating Horm) Laboratory 05/18/2012 [facility] TSH 92.74 MIU/ML High 0.34-5.60 test finding [phone] Laboratory 02/27/2012 In House Occult Blood - neg x3 test finding Stool Laboratory 02/20/2012 [facility] Cytology 64 test finding [phone] -- <SEE NOTE> Xray 11/27/2011 [facility] Medicine X-Ray, Knee, unremarkable Right, 4 Or More Views Lipid 11/19/2011 [facility] Triglyceride 316 mg/dL High 40-200 Profile [phone] (Trig/Chol/H DL) Cholesterol 196 mg/dL Less Than 200 65 High Density Lipoprotein 47 mg/dL 40-60 66 Cholesterol/HDL Ratio 4.17 AVERAGE 1-4.44 Low Density Lipoprotein 86 mg/dL Less Than 100 67 Laboratory test finding 11/19/2011 [facility] Ast (Sgot) 25 U/L 12- 42 [phone] Laboratory test finding 03/24/2011 In House Culture Throat neg Rapid Screen Culture Throat neg Urinalysis W/Microscopic 02/05/2011 [facility] Ua Color YELLOW Yellow [phone] Appearance-Urine CLEAR Clear Specific Carson-Ur 1.023 1.010-1.030 Esterase-Urine NEGATIVE Negative Nitrite NEGATIVE Negative [id number] NEGATIVE Negative Protein-Urine TRACE Abnormal Negative PH-Urine 6.0 5-9 Blood-Urine 2+ Abnormal Negative Ketones-Urine NEGATIVE Negative Bilirubin-Ur NEGATIVE Negative Glucose-Urine NEGATIVE Negative WBC-Urine 0-2 0-5 RBC-Urine 3-5 0-2 Epith Cells-Ur FEW None Bacteria-Urine TRACE None Laboratory test finding 02/05/2011 [facility] Lipase 23 U/L 22-51 [phone] Comp Metabolic Panel 02/05/2011 [facility] Sodium 141 mmol/L 135- 145 [phone] Potassium 3.6 mmol/L 3.5-5.0 Chloride 104 mmol/L 101-111 Co2 (Carbon Dioxide) 30.0 mmol/L 22-32 Anion Gap 7.0 mmol/L 2-11 68 Glucose 107 mg/dL High 70-100 BUN 17 mg/dL 6-24 Creatinine 0.78 mg/dL 0.50-1.40 One Over Creatinine 1.20 BUN/Creatinine Ratio 21.8 High 8-20 Calcium 9.4 mg/dL 8.1-9.9 Total Protein 7.6 GM/DL 6.2-8.1 Albumin 3.8 GM/DL 3.6-5.4 Globulin 3.8 GM/DL 2-4 Albumin/Globulin Ratio 1.0 1-3 Bilirubin Total 0.3 mg/dL Low 0.4-1.5 69 Alkaline Phosphatase 154 U/L High 30-110 Alt (SGPT) 31 U/L 14-54 Ast (Sgot) 30 U/L 12-42 eGFR Non- 76.4 > 60 eGFR 98.3 > 60 70 CBC No Diff 02/05/2011 [facility] White Blood Count 13.4 CUMM High 4.8-10.8 [phone] Red Cell Count 4.94 CUMM 4.2-5.4 Hemoglobin 14.8 g/dL 12.0-16.0 Hematocrit 44 % 35-47 Mean Corpuscular Volume 88 um3 79-97 Mean Corpuscular Hemoglob 30 pg 27-31 Mean Corpuscular HGB Cone 34 g/dL 32-36 Redcell Distribution WDTH 12 % 10.5-15 Platelet Count 294 CUMM 150-450 Mean Platelet Volume 9.1 um3 7.4-10.4 Laboratory test 01/14/2011 [facility] Stool Culture LIGHT BROWN 71 finding [phone] Fecal Lactoferrin 01/14/2011 [facility] Fecal Lactoferrin TEST LIMITATIONS 72 (Stool WBC) [phone] (Stool WBC) <SEE NOTE> Fecal Lactoferrin (Stool WBC) POSITIVE BY IMMU <SEE NOTE> Abnormal 73 Laboratory test 01/14/2011 [facility] Stool Cult NF 74 finding [phone] Sensitivity CBC With Manual 01/14/2011 [facility] White Blood Count 12.1 CUMM High 4.8-10 Diff [phone] Red Cell Count 4.87 CUMM 4.2-5.4 Hemoglobin 14.6 g/dL 12.0-16.0 Hematocrit 43 % 35-47 Mean Corpuscular Volume 89 um3 79-97 Mean Corpuscular Hemoglob 30 pg 27-31 Mean Corpuscular HGB Cone 34 g/dL 32-36 Redcell Distribution WDTH 13 % 10.5-15 Platelet Count 274 CUMM 150-450 Mean Platelet Volume 9.1 um3 7.4-10.4 Polysegmented Neutrophil 65 % 38-83 Lymphocyte 28 % 25-47 Monocyte 5 % 0-13 Eosinophil 2 % 0-6 Absolute Neutrophil Count 7.8 RBC Morphology NORMAL Laboratory test finding 01/14/2011 [facility] Amylase 37 U/L 20-120 75 [phone] Lipase 22 U/L 22-51 Comp Metabolic Panel 01/14/2011 [facility] Sodium 138 mmol/L 135- 145 [phone] Potassium 3.9 mmol/L 3.5-5.0 Chloride 104 mmol/L 101-111 Co2 (Carbon Dioxide) 27.0 mmol/L 22-32 Anion Gap 7.0 mmol/L 2-11 76 Glucose 95 mg/dL 70-100 BUN 12 mg/dL 6-24 Creatinine 0.90 mg/dL 0.50-1.40 One Over Creatinine 1.10 BUN/Creatinine Ratio 13.3 8-20 Calcium 9.4 mg/dL 8.1-9.9 Total Protein 6.7 GM/DL 6.2-8.1 Albumin 3.7 GM/DL 3.6-5.4 Globulin 3.0 GM/DL 2-4 Albumin/Globulin Ratio 1.2 1-3 Bilirubin Total 0.5 mg/dL 0.4-1.5 77 Alkaline Phosphatase 135 U/L High 30-110 Alt (SGPT) 23 U/L 14-54 Ast (Sgot) 30 U/L 12-42 eGFR Non- 64.8 > 60 eGFR 83.3 > 60 78 Laboratory test 01/14/2011 [facility] TSH 1.88 MIU/ML 0.34-5.60 finding [phone] Laboratory test 12/16/2010 In House Culture Throat neg finding Rapid Screen Culture Throat neg Laboratory test finding 12/06/2010 [facility] Clotest NEGATIVE [phone] Basic Metabolic Panel 09/30/2010 [facility] Sodium 130 mmol/L Low 135 -145 [phone] Potassium 4.4 mmol/L 3.5-5.0 Chloride 98 mmol/L Low 101-111 Co2 (Carbon Dioxide) 25.0 mmol/L 22-32 Anion Gap 7.0 mmol/L 2-11 79 Glucose 77 mg/dL 70-100 BUN 12 mg/dL 6-24 Creatinine 0.70 mg/dL 0.50-1.40 One Over Creatinine 1.40 BUN/Creatinine Ratio 17.1 8-20 Calcium 9.1 mg/dL 8.1-9.9 eGFR Non- 92.0 > 60 eGFR 111.3 > 60 80 Laboratory test 09/18/2010 [facility] TSH 3.06 MIU/ML 0.34-5.60 finding [phone] Laboratory test 09/11/2010 [facility] Troponin-I 0 NG/ML 0-0.06 81 finding [phone] Lipid Profile 09/11/2010 [facility] Triglyceride 264 mg/dL High 40- 200 (Trig/Chol/HDL) [phone] Cholesterol 182 mg/dL Less Than 200 82 High Density Lipoprotein 53 mg/dL 40-60 83 Low Density Lipoprotein 76 mg/dL Less Than 100 84 Cholesterol/HDL Ratio 3.43 AVERAGE 1-4.44 CBC With Electronic 09/11/2010 [facility] White Blood 11.4 CUMM High 4.8-10.8 Diff [phone] Count Red Cell Count 4.50 CUMM 4.2-5.4 Hemoglobin 13.9 g/dL 12.0-16.0 Hematocrit 40 % 35-47 Mean Corpuscular Volume 89 um3 79-97 Mean Corpuscular Hemoglob 31 pg 27-31 Mean Corpuscular HGB Cone 35 g/dL 32-36 Redcell Distribution WDTH 13 % 10.5-15 Platelet Count 296 CUMM 150-450 Mean Platelet Volume 7.9 um3 7.4-10.4 Gran % 55.3 % 38-83 Lymph % 35.4 % 25-47 Mononuclear % 6.3 % 1-9 Eosinophil % 2.6 % 0-6 Basophil % 0.4 % 0-2 Abs Lymphs 4.0 1.0-4.8 Abs Mononuclear 0.7 0-0.8 Absolute Neutrophil Count 6.3 1.5-7.7 Abs Eosinophils 0.3 0-0.6 Abs Basophils 0 0-0.2 Comp Metabolic Panel 09/11/2010 [facility] Sodium 138 mmol/L 135- 145 [phone] Potassium 4.1 mmol/L 3.5-5.0 Chloride 104 mmol/L 101-111 Co2 (Carbon Dioxide) 27.0 mmol/L 22-32 Anion Gap 7.0 mmol/L 2-11 85 Glucose 75 mg/dL 70-100 BUN 15 mg/dL 6-24 Creatinine 0.74 mg/dL 0.50-1.40 One Over Creatinine 1.30 BUN/Creatinine Ratio 20.3 High 8-20 Calcium 9.0 mg/dL 8.1-9.9 Total Protein 7.0 GM/DL 6.2-8.1 Albumin 3.5 GM/DL Low 3.6-5.4 Globulin 3.5 GM/DL 2-4 Albumin/Globulin Ratio 1.0 1-3 Bilirubin Total 0.4 mg/dL 0.4-1.5 86 Alkaline Phosphatase 134 U/L High 30-110 Alt (SGPT) 14 U/L 14-54 Ast (Sgot) 18 U/L 12-42 eGFR Non- 86.3 > 60 eGFR 104.4 > 60 87 Order 09/11/2010 [facility] Oximetry Single 96% CBC With Manual 04/25/2010 [facility] White Blood Count 13.3 CUMM High 4.8-10.8 Diff [phone] Red Cell Count 4.63 CUMM 4.2-5.4 Hemoglobin 14.5 g/dL 12.0-16.0 Hematocrit 42 % 35-47 Mean Corpuscular Volume 92 um3 79-97 Mean Corpuscular Hemoglob 31 pg 27-31 Mean Corpuscular HGB Cone 34 g/dL 32-36 Redcell Distribution WDTH 13 % 10.5-15 Platelet Count 299 CUMM 150-450 Mean Platelet Volume 8.3 um3 7.4-10.4 Polysegmented Neutrophil 69 % 38-83 Lymphocyte 20 % Low 25-47 Monocyte 4 % 0-13 Eosinophil 3 % 0-6 Atypical Lymph 4 % 0-6 Absolute Neutrophil Count 9.1 RBC Morphology NORMAL Laboratory test finding 04/25/2010 [facility] TSH 3.27 MIU/ML 0.34- 5.60 [phone] Comp Metabolic Panel 04/25/2010 [facility] Sodium 138 mmol/L 135- 145 [phone] Potassium 4.5 mmol/L 3.5-5.0 Chloride 103 mmol/L 101-111 Co2 (Carbon Dioxide) 25.0 mmol/L 22-32 Anion Gap 10.0 mmol/L 2-11 88 Glucose 94 mg/dL 70-100 89 BUN 16 mg/dL 6-24 Creatinine 1.00 mg/dL 0.50-1.40 One Over Creatinine 1.00 BUN/Creatinine Ratio 16.0 8-20 Calcium 9.6 mg/dL 8.1-9.9 90 Total Protein 6.8 GM/DL 6.2-8.1 Albumin 3.7 GM/DL 3.6-5.4 Globulin 3.1 GM/DL 2-4 Albumin/Globulin Ratio 1.2 1-3 Bilirubin Total 0.5 mg/dL 0.4-1.5 91 Alkaline Phosphatase 137 U/L High 30-110 Alt (SGPT) 18 U/L 14-54 Ast (Sgot) 24 U/L 12-42 eGFR Non- 61.2 > 60 eGFR 74.0 > 60 92 Laboratory test 01/30/2010 [facility] TSH 13.76 MIU/ML High 0.34- 5.60 93 finding [phone] CBC With 01/30/2010 [facility] White Blood 10.8 CUMM 4.8-10.8 Electronic Diff [phone] Count Red Cell Count 4.66 CUMM 4.2-5.4 Hemoglobin 14.9 g/dL 12.0-16.0 Hematocrit 43 % 35-47 Mean Corpuscular Volume 92 um3 79-97 Mean Corpuscular Hemoglob 32 pg High 27-31 Mean Corpuscular HGB Cone 35 g/dL 32-36 Redcell Distribution WDTH 12 % 10.5-15 Platelet Count 257 CUMM 150-450 Mean Platelet Volume 9.0 um3 7.4-10.4 Gran % 60.1 % 38-83 Lymph % 30.4 % 25-47 Mononuclear % 7.1 % 1-9 Eosinophil % 2.2 % 0-6 Basophil % 0.2 % 0-2 Abs Lymphs 3.3 1.0-4.8 Abs Mononuclear 0.8 0-0.8 Absolute Neutrophil Count 6.5 1.5-7.7 Abs Eosinophils 0.2 0-0.6 Abs Basophils 0 0-0.2 CBC With Manual 11/28/2009 [facility] White Blood Count 10.8 CUMM 4.8-10.8 Diff [phone] Red Cell Count 4.40 CUMM 4.2-5.4 Hemoglobin 14.0 g/dL 12.0-16.0 Hematocrit 41 % 35-47 Mean Corpuscular Volume 93 um3 79-97 Mean Corpuscular Hemoglob 32 pg High 27-31 Mean Corpuscular HGB Cone 34 g/dL 32-36 Redcell Distribution WDTH 14 % 10.5-15 Platelet Count 246 CUMM 150-450 Mean Platelet Volume 9.1 um3 7.4-10.4 Polysegmented Neutrophil 79 % 38-83 Band Neutrophil 2 % 0-8 Lymphocyte 16 % Low 25-47 Monocyte 2 % 0-13 Eosenophil 1 % 0-6 Absolute Neutrophil Count 8.7 RBC Morphology NORMAL Comp Metabolic Panel 11/28/2009 [facility] Sodium 140 mmol/L 135- 145 [phone] Potassium 4.0 mmol/L 3.5-5.0 Chloride 101 mmol/L 101-111 Co2 (Carbon Dioxide) 30.0 mmol/L 22-32 Anion Gap 9.0 mmol/L 2-11 94 Glucose 97 mg/dL 70-100 95 BUN 6 mg/dL 6-24 Creatinine 0.80 mg/dL 0.50-1.40 One Over Creatinine 1.20 BUN/Creatinine Ratio 7.5 Low 8-20 Calcium 9.0 mg/dL 8.1-9.9 96 Total Protein 6.8 GM/DL 6.2-8.1 Albumin 3.7 GM/DL 3.6-5.4 Globulin 3.1 GM/DL 2-4 Albumin/Globulin Ratio 1.2 1-3 Bilirubin Total 0.6 mg/dL 0.4-1.5 97 Alkaline Phosphatase 153 U/L High 30-110 Alt (SGPT) 42 U/L 14-54 Ast (Sgot) 41 U/L 12-42 eGFR Non- 79.1 > 60 eGFR 95.8 > 60 98 Laboratory test 11/28/2009 [facility] TSH 22.56 MIU/ML High 0.34- 5.60 finding [phone] Lipid Profile 11/28/2009 [facility] Triglyceride 292 mg/dL High 40- 200 (Trig/Chol/HDL) [phone] Cholesterol 193 mg/dL Less Than 200 99 High Density Lipoprotein 45 mg/dL 40-60 100 Cholesterol/HDL Ratio 4.29 AVERAGE 1-4.44 Low Density Lipoprotein 90 mg/dL Less Than 100 101 1 Because ethnic data is not always [...] 15-29 5 Kidney failure <15 (or dialysis) 4 Desirable: <150 Borderline High: 150-199 High: 200-499 Very High: >500 5 Desirable: <200 Borderline High: 200-239 High: >239 6 Low: <40 Desirable: 40-60 High: >60 7 Desirable: <100 Near Optimal: 100-129 Borderline High: 130-159 High: 160-189 Very High: >189 8 SEE RESULT BELOW Name: SALBADOR CHEEK : [address]: Sera NAVARRO Acct: [id number] Unit: [id number] AGE: 62 Location: [facility] Re04/12/18 SEX: F Status: REG REF SPEC: [id number] KIRTI: 04/12/18-1518 [facility] DR: Sera NAVARRO REQ: [id number] RECD: 04/12/18 STATUS: COMP _ SOURCE: URINE SPDESC: ORDERED: Urine Culture Procedure Result Reported Site Urine Culture Final 04/13/18- 1612 ML No growth of clinically significant organisms * ML - Main Lab . END OF REPORT DEPARTMENT OF PATHOLOGY, [address] [place] [address] Gabino Mercado M.D. 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 15 Normal Range 180 to 914 Indeterminate Range 145 to 180 Deficient Range <145 16 Because ethnic data is not always readily [...] 15-29 5 Kidney failure <15 (or dialysis) 17 Because ethnic data is not always readily [...] 15-29 5 Kidney failure <15 (or dialysis) 18 Because ethnic data is not always readily [...] 15-29 5 Kidney failure <15 (or dialysis) 19 void, clear, dark yellow 20 Because ethnic data is not always readily [...] 15-29 5 Kidney failure <15 (or dialysis) 21 Normal Range 180 to 914 Indeterminate Range 145 to 180 Deficient Range <145 22 Mild absolute lymphocytosis, favor reactive. If persistent, recommend correlation with flow cytometry to exclude a low-grade lymphoproliferative disorder. Reviewed by Zehra Andres MD 23 *Ascorbic acid is present which may interfere with detection of blood. 24 Monospot added per pathologist's request. 25 Reference Range and Interpretation: TnI (ng/mL) Interpretation Less Than 0.03 ng/mL Not supportive of diagnosis of OR 0.03 - 0.50 ng/mL Indeterminate: suggest serial studies if clinically indicated. Greater than 0.5 ng/mL Consistent with diagnosis of OR 26 Because ethnic data is not always readily [...] 15-29 5 Kidney failure <15 (or dialysis) 27 Critical Result LACT:2.2 Called to [id number] at: 15:51:51 by:[email or web address] Read back by:ANA/[facility]NA [facility] Severe Sepsis and Septic Shock Management Bundle Measure requires all lactic acids initially measuring >2.0mmol/L be repeated. 28 Desirable <150 Borderline high 150-199 High 200-499 Very High >500 29 Desirable <200 Borderline high 200-239 High >239 30 Low <40 Desirable: 40-60 High: >60 31 Desirable: <100 mg/dL Near Optimal: 100-129 mg/dL Borderline High: 130-159 mg/dL High: 160-189 mg/dL Very High: >189 mg/dL 32 Because ethnic data is not always readily [...] 15-29 5 Kidney failure <15 (or dialysis) 33 Normal Range 180 to 914 Indeterminate Range 145 to 180 Deficient Range <145 34 FASTING 35 REFERENCE VALUE Not present Test Performed by: [place] [address] Dramatic Director: Mike Lewis II, M.D., Ph.D. 36 Because ethnic data is not always readily [...] 15-29 5 Kidney failure <15 (or dialysis) 37 Microalbuminuria in a random sample is defined as: Microalbumin/Creatinine ratio of 30-299 ug/mg. 38 FASTING 39 Desirable <150 Borderline high 150-199 High 200-499 Very High >500 40 FASTING 41 DL aware 42 Desirable <150 Borderline high 150-199 High 200-499 Very High >500 43 Desirable <200 Borderline high 200-239 High >239 44 Low <40 Desirable: 40-60 High: >60 45 Unable to calculate LDL as triglyceride is > 400 46 Because ethnic data is not always readily [...] 15-29 5 Kidney failure <15 (or dialysis) 47 Therapeutic target for the treatment of diabetes Mellitus patients is <7% HBA1C, and in selective patients <6.0%.Please refer to [place] [employer] Diabetic care guidelines for further information. 48 RUN DATE: 01/02/14 [facility] LAB LIVE PAGE 1 RUN TIME: [address] [place] [address] Specimen Inquiry Name: SALBADOR ROSENTHAL : [address]: Sera NAVARRO Acct: [id number] Unit: [id number] AGE: 58 Location: [facility] Re12/30/13 SEX: F Status: REG REF SPEC: [id number] KIRTI: 12/30/13-1430 [facility] [address]: Sera NAVARRO REQ: [id number] RECD: 12/30/13592 STATUS: COMP _ SOURCE: STOOL SPDESC: ORDERED: Hemoccult, Stool Culture, C. diff Amp DNA COMMENTS: C. Difficile toxin testing is not performed on formed stool specimens. Test of cure on positive patients is not recommended. Verbal to ZEYAD PEDERSON) [facility] by [id number] at 0924 on 01/02/14. Results read back accurately. QUERIES: Medent Number [id number] Procedure Result Verified Site Stool Culture Final 01/01/14- 0941 ML Result No enteric pathogens isolated Testing for Salmonella, Shigella, Aeromonas, Plesiomonas, Yersinia and Campylobacter are included in a Stool Culture. Vibrio spp not routinely tested for in a stool culture. If testing is desired, please request specifically when placing test order. Sensitivities not routinely performed on stool isolates, as antibiotics may prolong the carriage rate of bacteria. Please contact the microbiology lab if sensitivities are required. Stool Specimen Description Final 12/30/13- 1902 ML Stool Color Brown Stool Form Formed Stool Consistency Firm Shiga Toxin 1 2 Final 01/02/14- 1151 ML Organism 1 Negative Shiga Toxin 1 2 CONTINUED ON NEXT PAGE * ML=Testing performed at Main Lab DEPARTMENT OF PATHOLOGY, [facility] [employer] [place], [place] [address] Gabino Mercado M.D. Director [facility] Permit #[id number] RUN DATE: 01/02/14 [facility] LAB LIVE PAGE 2 RUN TIME: 1151 [facility] [employer] [place], [place] [address] Specimen Inquiry Patient: SALBADOR ROSENTHAL [id number] (Continued) Specimen: [id number] Collected: 12/30/13-1429 Received: 12/30/13-150 (Continued) Procedure Result Verified Site Shiga Toxin 1 2 Final (continued) 01/02/14- 1151 Immunochromatographic Assay C. difficile Amplified DNA Final 12/31/13- 1219 ML Test not performed Stool Occult Blood Final 12/30/13- 1902 ML Stool Occult Blood Negative END OF REPORT * ML=Testing performed at Main Lab DEPARTMENT OF PATHOLOGY, [facility] [address] [place], [place] [address] Gabino Mercado M.D. Director [facility] Permit #[id number] RUN DATE: 12/30/13 [facility] LAB LIVE PAGE 1 RUN TIME: 1901 [facility] [employer] [place], [place] [address] Specimen Inquiry Name: SALBADOR ROSENTHAL : [address]: Sera NAVARRO Acct: [id number] Unit: [id number] AGE: 58 Location: [facility] Re12/30/13 SEX: F Status: REG REF SPEC: [id number] KIRTI: 12/30/13-1430 [facility] DR: Sera NAVARRO REQ: [id number] RECD: 12/30/13 STATUS: RES _ SOURCE: STOOL SPDESC: ORDERED: Hemoccult, Stool Culture, C. diff Amp DNA QUERIES: Medent Number [id number] Procedure Result Verified Site Stool Culture PENDING Stool Specimen Description Final 12/30/13- 1902 ML Stool Color Brown Stool Form Formed Stool Consistency Firm Shiga Toxin 1 2 PENDING C. difficile Amplified DNA PENDING Stool Occult Blood Final 12/30/13- 1902 ML Stool Occult Blood Negative END OF REPORT * ML=Testing performed at Main Lab DEPARTMENT OF PATHOLOGY, [address] [place] [address] Gabino Mercado M.D. Director [facility] Permit #[id number] RUN DATE: 12/31/13 [facility] LAB LIVE PAGE 1 RUN TIME: 1219 [address] [place], [place] [address] Specimen Inquiry Name: SALBADOR ROSENTHAL : [address]: Sera NAVARRO Acct: [id number] Unit: [id number] AGE: 58 Location: [facility] Re12/30/13 SEX: F Status: REG REF SPEC: [id number] KIRTI: 12/30/13-1430 [facility] [address]: Sera NAVARRO REQ: [id number] RECD: 12/30/13272 STATUS: RES _ SOURCE: STOOL SPDESC: ORDERED: Hemoccult, Stool Culture, C. diff Amp DNA COMMENTS: C. Difficile toxin testing is not performed on formed stool specimens. Test of cure on positive patients is not recommended. QUERIES: Medent Number [id number] Procedure Result Verified Site Stool Culture PENDING Stool Specimen Description Final 12/30/13- 1902 ML Stool Color Brown Stool Form Formed Stool Consistency Firm Shiga Toxin 1 2 PENDING C. difficile Amplified DNA Final 12/31/13- 1219 ML Test not performed Stool Occult Blood Final 12/30/13- 1902 ML Stool Occult Blood Negative END OF REPORT * ML=Testing performed at Main Lab DEPARTMENT OF PATHOLOGY, [facility] [address] [place], [place] [address] Gabino Mercado M.D. Director [facility] Permit #[id number] RUN DATE: 09/07/13 [facility] LAB LIVE PAGE 1 RUN TIME: 0152 [facility] [employer] [place], [place] [address] Specimen Inquiry Name: SALBADOR ROSENTHAL : [address]: Elena Steele MD Acct: [id number] Unit: [id number] AGE: 58 Location: [facility] Re09/05/13 SEX: F Status: DEP ER SPEC: [id number] KIRTI: 09/06/13-1699 [facility] DR: Elena Steele MD REQ: [id number] RECD: 09/07/13 STATUS: RES OTHR DR: eSra NAVARRO _ SOURCE: STOOL SPDESC: ORDERED: Hemoccult, Stool Culture, C. diff Amp DNA Procedure Result Verified Site Stool Culture PENDING Stool Specimen Description Final 09/07/13- 1337 ML Stool Color Brown Stool Form Nonformed Stool Consistency Liquid Shiga Toxin 1 2 PENDING C. difficile Amplified DNA PENDING Stool Occult Blood Final 09/07/13- 1337 ML Stool Occult Blood Negative END OF REPORT * ML=Testing performed at Main Lab DEPARTMENT OF PATHOLOGY, [facility] [address] [place], [place] [address] Gabino Mercado M.D. Director [facility] Permit #[id number] RUN DATE: 09/08/13 [facility] LAB LIVE PAGE 1 RUN TIME: 1416 [facility] [employer] [place], [place] [address] Specimen Inquiry Name: SALBADOR ROSENTHAL : [address]: Elena Steele MD Acct: [id number] Unit: [id number] AGE: 58 Location: [facility] Re09/05/13 SEX: F Status: DEP ER SPEC: [id number] KIRTI: 09/06/13-[address]: Elena Steele MD REQ: [id number] RECD: 09/07/13-0 STATUS: RES OTHR DR: Sera NAVARRO _ SOURCE: STOOL SPDESC: ORDERED: Hemoccult, Stool Culture, C. diff Amp DNA Procedure Result Verified Site Stool Culture PENDING Stool Specimen Description Final 09/07/13- 1337 ML Stool Color Brown Stool Form Nonformed Stool Consistency Liquid Shiga Toxin 1 2 PENDING C. difficile Amplified DNA Final 09/08/13- 1417 ML Organism 1 POS: C. DIFFICILE DETECTED Assay tests for toxigenic C. difficile with Pathogen Locus (PALOC) TEST LIMITATIONS: Assay does not distinguish between viable and nonviable organisms. Test results are to be used in conjunction with information available from the patient clinical evaluation and other diagnostic procedures. Two distinct groups have been identified that can harbor C. difficile asymptomatically at very high rates. Colonization at rates up to 50% and higher have been reported in infants and rates up to 32% in cystic fibrosis patients. CONTINUED ON NEXT PAGE * ML=Testing performed at Main Lab DEPARTMENT OF PATHOLOGY, [facility] [address] [place], [place] [address] Gabino Mercado M.D. Director [facility] Permit #[id number] RUN DATE: 09/08/13 [facility] LAB LIVE PAGE 2 RUN TIME: 6246 [facility] [employer] [place], [place] [address] Specimen Inquiry Patient: SALBADOR ROSENTHAL [id number] (Continued) Specimen: [id number] Collected: 09/06/13-1699 Received: 09/07/13 (Continued) Procedure Result Verified Site C. difficile Amplified DNA Final (continued) 09/08/13- 1417 Stool Occult Blood Final 09/07/13- 1337 ML Stool Occult Blood Negative END OF REPORT * ML=Testing performed at Main Lab DEPARTMENT OF PATHOLOGY, [address], [place], [place] [address] Gabino Mercado M.D. Director [facility] Permit #[id number] RUN DATE: 09/09/13 [facility] LAB LIVE PAGE 1 RUN TIME: [address] [place] [address] Specimen Inquiry Name: SALBADOR ROSENTHAL : [address]: Elena Steele MD Acct: [id number] Unit: [id number] AGE: 58 Location: [facility] Re09/05/13 SEX: F Status: DEP ER SPEC: [id number] KIRTI: 09/06/13-1700 [facility] [address]: Elena Steele MD REQ: [id number] RECD: 09/07/13-1220 STATUS: BRENDA MCINTOS[facility] DR: Sera NAVARRO _ SOURCE: STOOL SPDESC: ORDERED: Hemoccult, Stool Culture, C. diff Amp DNA COMMENTS: Verbal to [id number] by [id number] at 1421 on 09/08/13. Results read back accurately. Unable to Perform Shiga Toxin Testing. Insufficient Growth of Enteric Bacteria. Procedure Result Verified Site Stool Culture Final 09/09/13- 0914 ML Result No enteric pathogens isolated Testing for Salmonella, Shigella, Aeromonas, Plesiomonas, Yersinia and Campylobacter are included in a Stool Culture. Vibrio spp not routinely tested for in a stool culture. If testing is desired, please request specifically when placing test order. Sensitivities not routinely performed on stool isolates, as antibiotics may prolong the carriage rate of bacteria. Please contact the microbiology lab if sensitivities are required. Stool Specimen Description Final 09/07/13- 1337 ML Stool Color Brown Stool Form Nonformed Stool Consistency Liquid Shiga Toxin 1 2 Final 09/09/13- 0914 ML Test not performed C. difficile Amplified DNA Final 09/08/13- 1417 ML CONTINUED ON NEXT PAGE * ML=Testing performed at Main Lab DEPARTMENT OF PATHOLOGY, [facility] [employer] [place], [place] [address] Gabino Mercado M.D. Director [facility] Permit #[id number] RUN DATE: 09/09/13 [facility] LAB LIVE PAGE 2 RUN TIME: 914 [facility] [employer] [place], [place] [address] Specimen Inquiry Patient: SALBADOR ROSENTHAL [id number] (Continued) Specimen: [id number] Collected: 09/06/13 Received: 09/07/13 (Continued) Procedure Result Verified Site C. difficile Amplified DNA Final (continued) 09/08/13- 1417 Organism 1 POS: C. DIFFICILE DETECTED Assay tests for toxigenic C. difficile with Pathogen Locus (PALOC) TEST LIMITATIONS: Assay does not distinguish between viable and nonviable organisms. Test results are to be used in conjunction with information available from the patient clinical evaluation and other diagnostic procedures. Two distinct groups have been identified that can harbor C. difficile asymptomatically at very high rates. Colonization at rates up to 50% and higher have been reported in infants and rates up to 32% in cystic fibrosis patients. Stool Occult Blood Final 09/07/13- 1337 ML Stool Occult Blood Negative END OF REPORT * ML=Testing performed at Main Lab DEPARTMENT OF PATHOLOGY, [facility] [address] [place] [id number] Gabino Mercado M.D. Director [facility] Permit #[id number] 54 Because ethnic data is not always readily [...] 15-29 5 Kidney failure <15 (or dialysis) 55 RUN DATE: 04/25/13 [facility] LAB LIVE PAGE 1 RUN TIME: [address] [place] [address] Specimen Inquiry Name: SALBADOR ROSENTHAL : [address]: Sera NAVARRO Acct: [id number] Unit: [id number] AGE: 57 Location: [facility] Re04/21/13 SEX: F Status: REG REF SPEC: [id number] KIRTI: 04/20/13-1723 [facility] [address]: Sera NAVARRO REQ: [id number] RECD: 04/21/13-1308 STATUS: SOUT _ ORDERED: AL BLUE STAIN, S-100, CD34 STAIN, CD68 STAIN, LEVEL IV, FACTOR XIII STA FINAL DIAGNOSIS Skin, right shoulder, biopsy: Dermatofibroma. COMMENTS: The following immuno and special stains with appropriately reacting controls were performed: S100 Negative. CD68 Focally positive. Factor XIIIA Positive. CD34 Negative. Alcian blue Negative for increased dermal mucin. This staining profile supports the histologic impression of dermatofibroma. If these findings are not thought to be telesales representative or if the residual lesion at this site becomes larger or exhibits other clinical changes, complete excision or re-biopsy would be recommended. CLINICAL HISTORY Erythematous irregularly shaped lesion with central raised papule PRE-OPERATIVE DIAGNOSIS Neoplasm, uncertain. CONTINUED ON NEXT PAGE * ML=Testing performed at Main Lab DEPARTMENT OF PATHOLOGY, [facility] [employer] [place], [place] [address] Gabino Mercado M.D. Director [facility] Permit #[id number] RUN DATE: 04/25/13 [facility] LAB LIVE PAGE 2 RUN TIME: 5233 [facility] [employer] [place], [place] [address] Specimen Inquiry Patient: SALBADOR ROSENTHAL [id number] (Continued) GROSS DESCRIPTION (Continued) GROSS DESCRIPTION The specimen is received in formalin labeled Salbador Rosenthal, Skin R Shoulder, and consists of two punch biopsies of skin that measure 0.4 x 0.2 x 0.2 cm. and 0.3 x 0.2 x 0.2 cm. Submitted entirely, one cassette. Signed (signature on file) Zehra Andres MD 08/26 1754 END OF REPORT * ML=Testing performed at Main Lab DEPARTMENT OF PATHOLOGY, [address] [place] [address] Gabino Mercado M.D. Director [facility] Permit #[id number] 56 will review with pt on 02/22/13 at her next appt 57 Therapeutic target for the treatment of diabetes Mellitus patients is <7% HBA1C, and in selective patients <6.0%.Please refer to [place] [employer] Diabetic care guidelines for further information. 58 Because ethnic data is not always readily [...] 15-29 5 Kidney failure <15 (or dialysis) 59 HDL Interpretation: Undesirable: High Risk: Less than 40 mg/dL Desirable: Low Risk: Greater than 60 mg/dL 60 LDL Interpretation: Low Risk Optimal Level: LDL Less than 100 mg/dL Near or Above Optimal: LDL 100-129 mg/dL Borderline High Risk: LDL 130-159 mg/dL High Risk: LDL 160-189 mg/dL Very High Risk: LDL Greater than 189 mg/dL 61 Fasting 62 Because ethnic data is not always readily [...] 15-29 5 Kidney failure <15 (or dialysis) [address] CASTILLO by [id number] at 1805 on 06/14/12. Results read back accurately. 64 ---- RUN DATE: 02/23/12 [facility] NMI LIVE PAGE 1 RUN TIME: 1416 Specimen Inquiry RUN USER: INTERFACE -- Name: SALBADOR ROSENTHAL Status: REG REF Re02/20/12 Age/Sex: 56/F Unit#: [id number] Location: [facility] : [birth year] -- Specimen: [id number] Spec Date:02/20/[address]: Sera NAVARRO Spec Type: CYTOLOGY Received:02/23/1239 Copies to: SOURCE VAGINAL Thin Prep with Reflex HPV Test PATIENT INFORMATION ACTUAL COLLECTION DATE: 02/20/12 ? No POST MENOPAUSAL? Yes HYSTERECTOMY? Yes PATIENT HISTORY: 1986 Hysterectomy ADEQUACY OF SPECIMEN Satisfactory for evaluation * DIAGNOSIS NEGATIVE FOR INTRAEPITHELIAL LESION OR MALIGNANCY * This Pap test was evaluated with the assistance of the ThinPrep Pap Test Imaging System. The Pap Smear is a screening test designed to aid in the detection of premalign ant and malignant conditions of the uterine cervix. It is not a diagnostic procedure a nd should not be used as the sole means of detecting cervical cancer. Both false- positiv e and false-negative reports do occur. Depending on your risk status, a Pap smear kanu uld be obtained and evaluated every one to three years. Initial evaluation performed by Beto CORRAL([facility]) 02/23/12 Final Interpretation electronically signed by: Beto CORRAL([facility]) 02/23/12 1414 -- -- DEPARTMENT OF PATHOLOGY, [address] [place] [address] [facility] Permit #[id number] Gabino Mercado M.D. Director Kaelyn Zuñiga -- 65 CHOLESTEROL INTERPRETATION: Desirable: Less than 200 MG/DL Borderline-High Risk: 200-239 MG/DL High-Risk: 240 MG/DL and over 66 HDL INTERPRETATION: Undesirable: High Risk: Less than 40 MG/DL Desirable: Low Risk: Greater than 60 MG/DL 67 LDL INTERPRETATION: Low Risk Optimal Level: LDL Less than 100 MG/DL Near or Above Optimal: LDL 100-129 MG/DL Borderline High Risk: LDL 130-159 MG/DL High Risk: LDL 160-189 MG/DL Very High Risk: LDL Greater than 189 MG/DL 68 Anion gap measurement may be of limited value in the presence of any alkalosis, especially in a combined acid base disorder. . 69 A metabolite of Naproxen, O-desmethylnaproxen, has been shown to interfere with the Jendrassik-Arvind method for measuring total bilirubin. Samples from patients who have taken Naproxen have shown spurious elevation in total bilirubin levels. 70 Because ethnic data is not always readily [...] 15-29 5 Kidney failure <15 (or dialysis) 71 LIQUID NONFORMED 72 TEST LIMITATIONS: Assay detects elevated levels of lactoferrin released from fecal leukocytes as a marker of intestinal inflammation. The test may not be appropriate in immunocompromised persons. Fecal samples from breast fed infants should not be used with this assay. 73 POSITIVE BY IMMUNOASSAY 74 NEGATIVE FOR THE ENTERIC PATHOGENS - SALMONELLA, SHIGELLA, AEROMONAS, PLESIOMONAS AND YERSINIA. VIBRIO AND E. COLI 0157 NOT ROUTINELY TESTED FOR IN A STOOL CULTURE. PLEASE SUBMIT SAMPLE WITH SPECIFIC REQUEST FOR DESIRED ORGANISM(S). 75 PLEASE NOTE NEW REFERENCE RANGE. 76 Anion gap measurement may be of limited value in the presence of any alkalosis, especially in a combined acid base disorder. . 77 A metabolite of Naproxen, O-desmethylnaproxen, has been shown to interfere with the Jendrassik-Aiken method for measuring total bilirubin. Samples from patients who have taken Naproxen have shown spurious elevation in total bilirubin levels. 78 Because ethnic data is not always readily [...] 15-29 5 Kidney failure <15 (or dialysis) 79 Anion gap measurement may be of limited value in the presence of any alkalosis, especially in a combined acid base disorder. . 80 Because ethnic data is not always readily [...] 15-29 5 Kidney failure <15 (or dialysis) 81 New Reference Range and Interpretation effective 06/17/2002 TnI (ng/ml) INTERPRETATION Less Than 0.06 ng/mL NOT SUPPORTIVE OF DIAGNOSIS OF OR 0.06 - 0.50 ng/ml INDETERMINATE: SUGGEST SERIAL STUDIES IF CLINICALLY INDICATED. Greater than 0.5 ng/mL CONSISTENT WITH DIAGNOSIS OF OR . 82 CHOLESTEROL INTERPRETATION: Desirable: Less than 200 MG/DL Borderline-High Risk: 200-239 MG/DL High-Risk: 240 MG/DL and over 83 HDL INTERPRETATION: Undesirable: High Risk: Less than 40 MG/DL Desirable: Low Risk: Greater than 60 MG/DL 84 LDL INTERPRETATION: Low Risk Optimal Level: LDL Less than 100 MG/DL Near or Above Optimal: LDL 100-129 MG/DL Borderline High Risk: LDL 130-159 MG/DL High Risk: LDL 160-189 MG/DL Very High Risk: LDL Greater than 189 MG/DL 85 Anion gap measurement may be of limited value in the presence of any alkalosis, especially in a combined acid base disorder. . 86 A metabolite of Naproxen, O-desmethylnaproxen, has been shown to interfere with the Jendrassik-Arvind method for measuring total bilirubin. Samples from patients who have taken Naproxen have shown spurious elevation in total bilirubin levels. 87 Because ethnic data is not always readily [...] 15-29 5 Kidney failure <15 (or dialysis) 88 Anion gap measurement may be of limited value in the presence of any alkalosis, especially in a combined acid base disorder. . 89 Note change in reference range as of 05/04/08. The change was based on recommendations from the [place] [employer]. 90 Please note change in reference range effective 08 . 91 A metabolite of Naproxen, O-desmethylnaproxen, has been shown to interfere with the Jendrassik-Arvind method for measuring total bilirubin. Samples from patients who have taken Naproxen have shown spurious elevation in total bilirubin levels. 92 Because ethnic data is not always readily [...] 15-29 5 Kidney failure <15 (or dialysis) 93 Reviewed with pt at visit 94 Anion gap measurement may be of limited value in the presence of any alkalosis, especially in a combined acid base disorder. . 95 Note change in reference range as of 05/04/08. The change was based on recommendations from the [place] [employer]. 96 Please note change in reference range effective 08 . 97 A metabolite of Naproxen, O-desmethylnaproxen, has been shown to interfere with the Jendrassik-Arvind method for measuring total bilirubin. Samples from patients who have taken Naproxen have shown spurious elevation in total bilirubin levels. 98 Because ethnic data is not always readily [...] 15-29 5 Kidney failure <15 (or dialysis) 99 CHOLESTEROL INTERPRETATION: Desirable: Less than 200 MG/DL Borderline-High Risk: 200-239 MG/DL High-Risk: 240 MG/DL and over 100 HDL INTERPRETATION: Undesirable: High Risk: Less than 40 MG/DL Desirable: Low Risk: Greater than 60 MG/DL 101 LDL INTERPRETATION: Low Risk Optimal Level: LDL Less than 100 MG/DL Near or Above Optimal: LDL 100-129 MG/DL Borderline High Risk: LDL 130-159 MG/DL High Risk: LDL 160-189 MG/DL Very High Risk: LDL Greater than 189 MG/DL Procedures Date Code Description Status 02/19/2018 [id number] Diabetic Retinal Eye Exam Completed 08/14/2017 68476 X-Ray Toe(S) Two Views Completed 03/14/2017 [id number] Mammogram Completed 12/04/2016 50907 SC/Im Injections Completed 10/16/2016 28024 SC/Im Injections Completed 07/18/2016 73589 Radiologic Exam Hip Unilateral With Pelvis 2-3 Views Completed 05/29/2016 50437 SC/Im Injections Completed 03/16/2014 77697 Dexa Bone Density Study One Or More Sites Axial Completed Skeleton 02/12/2014 19691991 Colonoscopy Completed 04/20/2013 01151 Biopsy Skin Lesion Single Completed 03/30/2013 24962 Bronchospasm Evaluation Pre & Post Completed 11/19/2012 03707 Oximetry, Single Completed 06/30/2012 14514 Oximetry, Single Completed 11/27/2011 28352 X-Ray Knee, Complete Completed 11/04/2010 66757 Oximetry, Single Completed 10/31/2010 84895 Xray Abdomen Upright/Flat Abd Completed 09/11/2010 37686 Oximetry, Single Completed 09/11/2010 48255 Electrocardiogram Complete Completed 12/26/2009 61344 Electrocardiogram Complete Completed Encounters Type Date Location Provider Dx Diagnosis Office Visit 04/12/2018 Main Office Sera Schwartz, Z01.818 Encounter for other 2:00p P.A. 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 mellitus with hyperglycemia F33.9 Major depressive disorder, recurrent, unspecified I10 Essential (primary) hypertension Z63.0 Problems in relationship with spouse or partner M25.551 Pain in right hip Z71.3 Dietary counseling and surveillance Office Visit 10/26/2017 2:00p Main Office Sera Schwartz Z00.01 Encounter for P.A. 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 foot M79.674 Pain in right toe(s) Office Visit 05/08/2017 1:00p Main Office Castro Ortiz R60.0 Localized edema I10 Essential (primary) hypertension E11.9 Type 2 diabetes mellitus without complications Office Visit 03/06/2017 12:55p Main Office Lee Suresh, E11.65 Type 2 diabetes D.O. mellitus with hyperglycemia Z12.31 Encntr screen mammogram for malignant neoplasm of breast Office Visit 12/04/2016 2:45p Main Office Lee Suresh, E11.65 Type 2 diabetes D.O. mellitus with hyperglycemia F51.5 Nightmare disorder E53.8 Deficiency of other specified B group vitamins Office Visit 10/28/2016 3:55p Main Office Alfreda Guerra, J20.9 Acute bronchitis, PA unspecified Office Visit 10/16/2016 2:45p Main Office Lee Suresh, F51.5 Nightmare disorder D.O. F17.211 Nicotine dependence, cigarettes, in remission F41.1 Generalized anxiety disorder F33.9 Major depressive disorder, recurrent, unspecified E53.8 Deficiency of other specified B group vitamins Office Visit 08/19/2016 4:00p Main Office Lee Suresh, E11.65 Type 2 diabetes D.O. mellitus with hyperglycemia F17.211 Nicotine dependence, cigarettes, in remission Office Visit 07/18/2016 11:45a Main Office Lee Suresh, M25.551 Pain in right hip D.O. Office Visit 05/29/2016 2:30p Main Office Lee Suresh, F41.1 Generalized D.O. anxiety disorder E11.65 Type 2 diabetes mellitus with hyperglycemia F33.9 Major depressive disorder, recurrent, unspecified E53.8 Deficiency of other specified B group vitamins R19.7 Diarrhea, unspecified Office Visit 05/20/2016 2:30p Main Office Lee Suresh, F41.1 Generalized anxiety D.O. disorder F33.9 Major depressive disorder, recurrent, unspecified E11.65 Type 2 diabetes mellitus with hyperglycemia E83.42 Hypomagnesemia E05.80 Other thyrotoxicosis without thyrotoxic crisis or storm Z23 Encounter for immunization Office Visit 04/14/2016 4:00p Main Office Lee Suresh, F41.1 Generalized anxiety D.O. disorder F33.9 Major depressive disorder, recurrent, unspecified S40.862S Insect bite (nonvenomous) of left upper arm, sequela Office Visit 03/13/2016 1:30p Main Office Lee Suresh, F41.1 Generalized anxiety D.O. disorder F33.9 Major depressive disorder, recurrent, unspecified E11.65 Type 2 diabetes mellitus with hyperglycemia S40.862D Insect bite (nonvenomous) of left upper arm, subs encntr E05.80 Other thyrotoxicosis without thyrotoxic crisis or storm E83.42 Hypomagnesemia Office Visit 02/12/2016 12:55p Main Office Lee Suresh, F33.9 Major depressive D.O. disorder, recurrent, unspecified F41.1 Generalized anxiety disorder E11.65 Type 2 diabetes mellitus with hyperglycemia S40.862A Insect bite (nonvenomous) of left upper arm, init encntr E05.80 Other thyrotoxicosis without thyrotoxic crisis or storm Office Visit 12/06/2015 3:45p Main Office Lee Suresh D.O. R30.0 Dysuria F33.9 Major depressive disorder, recurrent, unspecified E11.65 Type 2 diabetes mellitus with hyperglycemia E83.42 Hypomagnesemia R41.0 Disorientation, unspecified D45 Polycythemia vera Office Visit 11/23/2015 2:15p Main Office Lee Suresh, F33.9 Major depressive D.O. disorder, recurrent, unspecified F41.1 Generalized anxiety disorder E83.42 Hypomagnesemia Office Visit 11/12/2015 2:30p Main Office Lee Suresh E11.65 Type 2 diabetes D.O. mellitus with hyperglycemia E83.42 Hypomagnesemia Office Visit 11/02/2015 2:30p Main Office Lee Suresh, E11.65 Type 2 diabetes D.O. mellitus with hyperglycemia Office Visit 11/01/2015 10:00a Main Office Lee Suresh, E11.65 Type 2 diabetes D.O. mellitus with hyperglycemia F33.9 Major depressive disorder, recurrent, unspecified F41.1 Generalized anxiety disorder R41.0 Disorientation, unspecified R30.0 Dysuria Office Visit 10/08/2015 9:30a Main Office Lee Suresh, E11.65 Type 2 diabetes D.O. mellitus with hyperglycemia F33.9 Major depressive disorder, recurrent, unspecified D45 Polycythemia vera F17.210 Nicotine dependence, cigarettes, uncomplicated F41.1 Generalized anxiety disorder Office Visit 08/06/2015 1:15p Main Office Lee Suresh, E11.65 Type 2 diabetes D.O. mellitus with hyperglycemia F17.210 Nicotine dependence, cigarettes, uncomplicated Z23 Encounter for immunization Z41.8 Encntr for oth proc for purpose oth [facility] Office Visit 06/04/2015 1:45p Main Office Lee Suresh, F41.1 Generalized anxiety D.O. disorder E11.65 Type 2 diabetes mellitus with hyperglycemia Z71.89 Other specified counseling Z71.3 Dietary counseling and surveillance Office Visit 05/09/2015 1:40p Main Office Britta Melo, 787.03 Vomiting Alone RPA-C 787.02 Nausea Alone 300.02 Anxiety Disorder Generalized V65.49 Counseling Other Spec V04.81 Need For Prophylactic Vaccination & Inoculation/Influenza V07.2 Prophylactic Immunotherapy Office Visit 05/02/2015 3:30p Main Office Lee Suresh, 250.02 Diabetes Mellitus D.O. W/O Compl Type II Or Unspec Type Uncontrol 780.79 Malaise And Fatigue Other V65.3 Dietary Surveillance & Counseling Office Visit 02/01/2015 1:20p Main Office Britta Melo, 461.0 Sinusitis Acute RPA-C Maxillary 786.2 Cough 250.02 Diabetes Mellitus W/O Compl Type II Or Unspec Type Uncontrol Office Visit 01/24/2015 4:20p Main Office Kameron, 300.02 Anxiety Disorder Britta, RPA-C Generalized 296.30 Depressive Disorder Major Recurrent Unspec 250.02 Diabetes Mellitus W/O Compl Type II Or Unspec Type Uncontrol 338.4 Chronic Pain Syndrome 401.9 Hypertension Unspec Office Visit 01/03/2015 1:20p Main Office Kameron, 300.02 Anxiety Disorder Britta, RPA-C Generalized 296.30 Depressive Disorder Major Recurrent Unspec 250.02 Diabetes Mellitus W/O Compl Type II Or Unspec Type Uncontrol 338.4 Chronic Pain Syndrome Office Visit 11/27/2014 1:20p Main Office Kameron, 250.00 Diabetes Mellitus Britta, RPA-C W/O Compl Type II Or Unspec Controlled 300.02 Anxiety Disorder Generalized 296.30 Depressive Disorder Major Recurrent Unspec Office Visit 09/18/2014 1:20p Main Office Kameron, 250.00 Diabetes Mellitus Britta, RPA-C W/O Compl Type II Or Unspec Controlled 272.2 Hyperlipidemia Mixed 401.9 Hypertension Unspec 733.90 Bone & Cartilage Disorder Unspec 244.0 Hypothyroidism Postsurgical 530.81 Esophageal Reflux 786.09 Dyspnea & Respiratory Abnormalities Other 296.30 Depressive Disorder Major Recurrent Unspec Office Visit 07/19/2014 1:20p Main Office Kaemron, 250.00 Diabetes Mellitus Britta, RPA-C W/O Compl Type II Or Unspec Controlled 272.2 Hyperlipidemia Mixed 401.9 Hypertension Unspec V04.81 Need For Prophylactic Vaccination & Inoculation/Influenza V07.2 Prophylactic Immunotherapy Office Visit 04/17/2014 1:20p Main Office Sera Schwartz, 250.00 Diabetes Mellitus P.A. W/O Compl Type II Or Unspec Controlled 272.1 Hypertriglyceridemia Pure V73.89 Screening Examination Viral Diseases Other Spec V75.9 Screening Examination Infectious Disease Unspec Office Visit 03/16/2014 10:20a Main Office Sera Schwartz, 250.00 Diabetes Mellitus P.A. W/O Compl Type II Or Unspec Controlled 272.1 Hypertriglyceridemia Pure 733.90 Bone & Cartilage Disorder Unspec Office Visit 02/27/2014 3:20p Main Office Sera Schwartz, 250.00 Diabetes Mellitus P.A. W/O Compl Type II Or Unspec Controlled 272.1 Hypertriglyceridemia Pure 272.2 Hyperlipidemia Mixed V65.49 Counseling Other Spec Office Visit 02/22/2014 2:00p Main Office Sera Schwartz, 709.9 Skin & Subcutaneous P.A. Tissue Disorders Unspec V70.0 Examination General Medical Routine AT Health Care Facility V76.12 Screening Mammogram Malig Kumar Other 695.9 Erythematous Condtions Unspec Office Visit 02/08/2014 4:15p Main Office Edu Gamez, 465.9 URI Upper M.D. Respiratory Infections Acute Unspec Sites 786.2 Cough Office Visit 10/17/2013 1:40p Main Office Sera Schwartz, 008.45 Clostridium P.A. Difficile 300.00 Anxiety State Unspec 244.0 Hypothyroidism Postsurgical Office Visit 09/28/2013 11:40a Main Office Sera Schwartz, 008.45 Clostridium P.A. Difficile 401.9 Hypertension Unspec Office Visit 08/22/2013 3:40p Main Office Sera Schwartz, 461.0 Sinusitis Acute P.A. Maxillary 786.2 Cough Office Visit 04/20/2013 1:40p Main Office Sera Schwartz, 238.4 Neoplasm Uncertain P.A. Polycythemia Vera 709.9 Skin & Subcutaneous Tissue Disorders Unspec Office Visit 03/30/2013 9:00a Main Office Sera Schwartz V70.0 Examination General P.A. Medical Routine AT Health Care Facility V72.31 Routine Players Assistant Examination V76.19 Screening Breast Exam Malignant Neoplasms Other 530.81 Esophageal Reflux 307.49 Sleep Disorder Other 786.09 Dyspnea & Respiratory Abnormalities Other 709.9 Skin & Subcutaneous Tissue Disorders Unspec Office Visit 02/03/2013 11:40a Main Office Sera Schwartz P.A. 719.46 Pain Joint Lower Leg 305.1 Tobacco Use Disorder Office Visit 12/14/2012 4:00p Main Office Sera Schwartz, 787.01 Nausea W / Vomiting P.A. 599.70 Hematuria, Unspecified Office Visit 11/19/2012 4:20p Main Office Sera Schwartz P.A. 786.2 Cough 466.0 Bronchitis Acute 462 Pharyngitis Acute Office Visit 09/23/2012 11:00a Main Office Sera Schwartz, 244.0 Hypothyroidism P.A. Postsurgical 307.49 Sleep Disorder Other 530.81 Esophageal Reflux 305.1 Tobacco Use Disorder Office Visit 06/30/2012 4:00p Main Office Sera Schwartz, 461.1 Sinusitis Acute P.A. Frontal 466.0 Bronchitis Acute Office Visit 03/03/2012 10:00a Main Office Sera Schwartz, 530.81 Esophageal Reflux P.A. Office Visit 02/20/2012 9:00a Main Office Sera Schwartz, 616.10 Vaginitis & P.A. 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 719.46 Pain Joint Lower Leg 729.81 Swelling Of Limb 623.9 Vaginal Disorder Noninflammatory Unspec Office Visit 12/10/2011 8:40a Main Office Sear Schwartz, P.A. 719.46 Pain Joint Lower Leg 695.3 Rosacea 296.31 Depressive Disorder Major Recurrent Mild 305.1 Tobacco Use Disorder Office Visit 11/27/2011 4:00p Main Office Sera Schwartz, P.A. 719.46 Pain Joint Lower Leg 278.00 Obesity Unspec 729.81 Swelling Of Limb E917.3 Furniture Without Subsequent Fall Office Visit 11/19/2011 8:40a Main Office Sera Schwartz, P.A. 695.3 Rosacea 296.31 Depressive Disorder Major Recurrent Mild 780.52 Insomnia Unspecified Office Visit 07/18/2011 2:20p Main Office Sera Schwartz P.A. 786.2 Cough 461.0 Sinusitis Acute Maxillary Office Visit 06/19/2011 3:20p Main Office Sera Schwartz, 719.41 Pain Joint Shoulder P.A. Region Office Visit 03/24/2011 11:40a Main Office Sera Schwartz, 465.9 URI Upper P.A. Respiratory Infections Acute Unspec Sites 786.2 Cough 462 Pharyngitis Acute Office Visit 02/07/2011 10:20a Main Office Sera Schwartz, 789.01 Pain Abdominal P.A. Right Upper Quadrant 787.91 Diarrhea 300.00 Anxiety State Unspec 296.31 Depressive Disorder Major Recurrent Mild 627.9 Menopausal & Postmenopausal Disorder Unspec 008.69 Enteritis Due To Other Viral Enteritis Office Visit 01/14/2011 9:30a Main Office Noa Roman MD 787.02 Nausea Alone 789.01 Pain Abdominal Right Upper Quadrant 787.91 Diarrhea 300.00 Anxiety State Unspec 401.9 Hypertension Unspec 530.81 Esophageal Reflux 305.1 Tobacco Use Disorder 296.31 Depressive Disorder Major Recurrent Mild 244.0 Hypothyroidism Postsurgical 272.0 Hypercholesterolemia Pure Office Visit 12/16/2010 2:00p Main Office Sera Schwartz, 461.8 Sinusitis Acute P.A. Other 462 Pharyngitis Acute 786.2 Cough Office Visit 11/04/2010 1:40p Main Office Sera cShwartz P.A. 466.0 Bronchitis Acute 461.1 Sinusitis Acute Frontal Office Visit 10/31/2010 9:40a Main Office Sera Schwartz, 789.06 Pain Abdominal P.A. Epigastric 789.09 Pain Abdominal Other Spec Site Office Visit 09/18/2010 1:00p Main Office Sera Schwartz P.A. 782.3 Edema 729.5 Pain In Limb 723.9 Cervical Region Musculoskeletal Disorders & Symptoms Unspec Office Visit 09/11/2010 1:00p Main Office Sera Schwartz, 780.79 Malaise And P.A. Fatigue Other 786.50 Pain Chest Unspec 530.81 Esophageal Reflux 723.9 Cervical Region Musculoskeletal Disorders & Symptoms Unspec 729.5 Pain In Limb 401.9 Hypertension Unspec Office Visit 07/04/2010 3:20p Main Office Sera Schwartz, 719.45 Pain Joint Pelvic P.A. Region & Thigh 305.1 Tobacco Use Disorder 724.5 Backache Unspec 465.9 URI Upper Respiratory Infections Acute Unspec Sites 786.2 Cough Office Visit 06/12/2010 11:40a Main Office Sera Schwartz, 466.19 Bronchiolitis Acute P.A. Due To Other Infectious Organisms 386.11 Vertigo Benign Paroxysmal Position 305.1 Tobacco Use Disorder Office Visit 06/07/2010 2:20p Main Office Sera Schwartz, 386.11 Vertigo Benign P.A. Paroxysmal Position 784.0 Headache 296.31 Depressive Disorder Major Recurrent Mild Office Visit 04/25/2010 10:20a Main Office Sera Schwartz 386.11 Vertigo Benign P.A. Paroxysmal Position 784.0 Headache Office Visit 04/22/2010 Main Office Sera 386.11 Vertigo Benign Paroxysmal 9:40a Rand, P.A. Position Office Visit 02/06/2010 Main Office Sera 272.0 Hypercholesterolemia Pure 8:40a Rand, P.A. 244.0 Hypothyroidism Postsurgical 401.9 Hypertension Unspec Office Visit 12/26/2009 11:00a Main Office Sera Schwartz P.A. 784.0 Headache 796.2 Blood Pressure Reading Elevated W/O Hypertension 386.11 Vertigo Benign Paroxysmal Position 244.0 Hypothyroidism Postsurgical 780.79 Malaise And Fatigue Other Office Visit 11/28/2009 8:40a Main Office Srea Schwartz, P.A. 784.0 Headache 723.9 Cervical Region Musculoskeletal Disorders & Symptoms Unspec 401.9 Hypertension Unspec 305.1 Tobacco Use Disorder 782.1 Rash & Other Nonspec Skin Eruption 272.0 Hypercholesterolemia Pure 244.0 Hypothyroidism Postsurgical 782.3 Edema 296.31 Depressive Disorder Major Recurrent Mild V06.1 Cjjsfyglzt-Cufkpsz-Yccotjvh Combined (DTaP) V07.2 Prophylactic Immunotherapy Plan of Treatment 04/12/2018 - Sera Schwartz, P.A.Z01.818 Encounter for other preprocedural examinationComments:patient is low risk for surgery planned.they have no prior anaesthetic related complications.they are advised to inform their surgeon of any acute illness which may occur between now and surgical date. ~B_Cleared for planned surgery.~b_M25.551 Pain in right hipNew Medication:Tramadol HCL 50 mg - 1-2 by mouth every 6 hours as needed for painFollow up:1 week worth of tramadol: if need refill, callE11.65 Type 2 diabetes mellitus with hyperglycemiaComments:A1C: 7.6Z79.4 software engineering project manager (current) use of insulinComments: A1C : 7.6%Z79.84 software engineering project manager (current) use of oral hypoglycemic fvdcsN04.0 Postprocedural ersthnngbhamnpW49.42 Body mass index (BMI) 45.0-49.9, adult
[2018-10-26] MEDS ORDERED: ceFAZolin 2 GM PREMIX in ORs 2 GM/50 ML BAG IVPB ONE (05:59)
[2018-10-26] MEDS ORDERED: Lactated Ringers 1000 ML Bag* 1,000 ML IV SCH (06:00)
[2018-10-26] MEDS ORDERED: Buffered Lidocaine 1% SYRIN* 1 ML/SYRINGE INTRADERM ONE (06:00)
[2018-10-26] MEDS ORDERED: Propofol* 10 MG/ML 20 ML BTL ONE (07:03)
[2018-10-26] MEDS ORDERED: KETAMINE HCL* 50 MG/ML 10 ML VIAL ONE (07:03)
[2018-10-26] MEDS ORDERED: Cisatracurium* 2 MG/ML MDV 5 ML ONE (07:03)
[2018-10-26] MEDS ORDERED: Ondansetron INJ* 2 MG/ML VIAL ONE (07:03)
[2018-10-26] MEDS ORDERED: Midazolam* 1 MG/ML 5 ML VIAL (5 MG) ONE (07:03)
[2018-10-26] MEDS ORDERED: Dexamethasone IV* 4 MG/ML 1 ML (4 MG) ONE (07:03)
[2018-10-26] MEDS ORDERED: Phenylephrine INJ* 10 MG/ML 1 ML VIAL (10 MG) ONE (07:03)
[2018-10-26] MEDS ORDERED: fentaNYL* 50 MCG/ML 5 ML VIAL (250 MCG VIAL) ONE (07:03)
[2018-10-26] MEDS ORDERED: Lidocaine 2% PF * 5 ML VIAL ONE (07:03)
[2018-10-26] MEDS ORDERED: fentaNYL* 50 MCG/ML 2 ML VIAL (100 MCG VIAL) ONE ×4 (08:38→11:30)
[2018-10-26] MEDS ORDERED: Bupivacaine 0.5% W/EPI SDV* 30 ML VIAL ONE (09:40)
[2018-10-26] MEDS ORDERED: Ketorolac INJ* 30 MG/ML 1 ML VIAL ONE (09:48)
[2018-10-26] MEDS ORDERED: HYDROmorphone INJ1* 1 MG/ML SYRINGE ONE (09:56)
[2018-10-26] MEDS ORDERED: Ondansetron INJ* 2 MG/ML VIAL IV PRN ×2 (09:57→10:34)
[2018-10-26] MEDS ORDERED: Levalbuterol 0.63MG/3ML NEB* UNIT OF USE INH PRN (09:57)
[2018-10-26] MEDS ORDERED: Acetaminophen IV 1GM/100ML * 1,000 MG/100 ML VIAL IVPB ONE (09:57)
[2018-10-26] MEDS ORDERED: Naloxone* 0.4 MG/ML 1 ML VIAL IV PRN (09:57)
[2018-10-26] MEDS ORDERED: Metoprolol Tartrate IV* 1 MG/ML 5 ML VIAL ONE (10:15)
[2018-10-26] MEDS ORDERED: Morphine INJ* 2 MG/ML 1 ML SYRINGE (TWO MG - NEW SYRINGE VERSION) IV PRN (10:34)
[2018-10-26] MEDS ORDERED: Docusate CAP* 100 MG PO PRN (10:34)
[2018-10-26] MEDS ORDERED: diPHENhydraMINE PO* 25 MG PO PRN (10:34)
[2018-10-26] MEDS ORDERED: Ondansetron TAB* 4 MG PO PRN (10:34)
[2018-10-26] MEDS ORDERED: oxyCODONE TAB* 5 MG TAB PO PRN (10:34)
[2018-10-26] MEDS ORDERED: Magnesium Hydroxide LIQ* 30 ML UDC PO PRN (10:34)
[2018-10-26] MEDS ORDERED: diPHENhydraMINE IV* 50 MG/ML 1 ml VIAL (BENADRYL) IV PRN (10:34)
[2018-10-26] MEDS ORDERED: Cyclobenzaprine TAB* 10 MG PO PRN (10:34)
[2018-10-26] MEDS ORDERED: Diclofenac 1% GEL (NF) 100 GM TUBE TOPICAL PRN (10:45)
[2018-10-26] MEDS ORDERED: Naproxen TAB* 250 MG PO PRN (10:45)
[2018-10-26] MEDS ORDERED: Zolpidem TAB* 5 MG PO PRN (10:45)
[2018-10-26] MEDS ORDERED: Furosemide TAB* 20 MG PO PRN (10:45)
[2018-10-26] MEDS ORDERED: Albuterol HFA INHALER* 8 gm MDI INH PRN (10:45)
[2018-10-26] MEDS ORDERED: HYDROcodone/ACETAMIN 5-325 MG* 1 TAB PO PRN (10:52)
[2018-10-26] MEDS ORDERED: Acetaminophen TAB* 325 MG PO PRN (10:52)
[2018-10-26] MEDS ORDERED: Acetaminophen IV 1GM/100ML * 100 ML ONE (10:53)
[2018-10-26] MEDS: fentaNYL* 50 MCG/ML 2 ML VIAL (100 MCG VIAL) IV PRN ×3 (10:56→11:57)
[2018-10-26] MEDS ORDERED: Acetaminophen TAB* 325 MG PO SCH (11:00)
[2018-10-26] MEDS ORDERED: Dextrose 50% Syringe 50 ML* 25 GM/50 ML SYRINGE IV PUSH PRN (11:17)
[2018-10-26] MEDS ORDERED: Enalaprilat IV* 1.25 MG/ML 2 ML VIAL (2.5 MG) ONE (11:22)
[2018-10-26] MEDS ORDERED: ALPRAZolam TAB* 0.5 MG PO PRN (11:23)
[2018-10-26] MEDS ORDERED: Methocarbamol TAB* 500 MG PO PRN (11:25)
[2018-10-26] MEDS ORDERED: Insulin LISPRO* 1 UNITS UNIT SUBCUT ONE (11:31)
[2018-10-26] MEDS: Insulin LISPRO* 1 UNITS UNIT SUBCUT SCH ×2 (11:33→18:16)
[2018-10-26] MEDS: Lactated Ringers 1000 ML Bag* 1,000 ML IV SCH ×2 (12:30→22:12)
--- NOTE | 2018-10-26 13:36 | CONS ---
CONSULTATION REPORT: DATE OF CONSULT: 10/26/18 PRIMARY CARE PROVIDER: Dr. Suresh. REQUESTING PHYSICIAN: Dr. Vikram Cespedes. ATTENDING PHYSICIAN: Dr. Gogo Medeiros. REASON FOR CONSULT: Co-medical management. HISTORY OF PRESENT ILLNESS/HOSPITAL COURSE: I refer you to Dr. Cespedes's history and physical from 10/20/18 for complete details, but in short, Ms. Cheek is a 63-year- old female with a past medical history of hyperlipidemia, hypertension , diabetes mellitus, hypothyroidism, chronic obstructive pulmonary disease, obesity, obstructive sleep apnea, anxiety and depression, who failed conservative management for the treatment of left hip pain. She presented to [facility] on 10/26/18 for a left total hip replacement. It is noted that the patient reports that she has bed bug infestation. PAST MEDICAL HISTORY: Diabetes mellitus type 2, insulin dependent; hypertension ; hyperlipidemia; hypothyroidism; obstructive sleep apnea; obesity; chronic obstructive pulmonary disease; anxiety; depression. PAST SURGICAL HISTORY: Cholecystectomy, section x2, thyroidectomy, carpal tunnel release bilateral, right knee meniscus, ulnar nerve transposition , hysterectomy, and right total hip. HOME MEDICATIONS: 1. Tramadol 50 mg p.o. q.6 hours. 2. Metformin 500 mg p.o. at bedtime. 3. Metformin 1000 mg p.o. b.i.d. 4. Zolpidem tartrate 5 mg p.o. q.p.m. p.r.n. 5. Vitamin B complex 1 tablet p.o. b.i.d. 6. Ranitidine 150 mg p.o. q.a.m. 7. Prazosin 1 mg p.o. q.p.m. 8. Naproxen 500 mg p.o. b.i.d. p.r.n. 9. Methocarbamol 500 mg p.o. b.i.d. 10. Magnesium oxide 400 mg p.o. q.p.m. 11. Lovastatin 40 mg p.o. q.a.m. 12. Levothyroxine 50 mcg p.o. q.a.m. 13. Levothyroxine 200 mcg p.o. q.a.m. 14. Insulin glargine 150 units subcu at 1400. 15. Ibuprofen 800 mg p.o. q.6 hours p.r.n. 16. Gabapentin 600 mg p.o. t.i.d. 17. Furosemide 20 mg p.o. t.i.d. p.r.n. 18. Dicyclomine 2 tabs p.o. q.a.m. 19. Diclofenac 1% gel topical once p.r.n. 20. Duloxetine DR 30 mg p.o. q.a.m. 21. Vitamin B12 1000 mcg p.o. q.a.m. 22. Cholecalciferol 5000 units p.o. q.a.m. 23. Albuterol HFA inhaler 2 puffs q.4 hours p.r.n. 24. Acetaminophen 650 mg p.o. q.8 hours p.r.n. 25. Alprazolam 1 tablet p.o. t.i.d. ALLERGIES: SOMA, rash and itching; CORTISONE, nausea and vomiting; IODINE, nausea and vomiting; OXYCODONE, itching; CYCLOBENZAPRINE, hallucinations. FAMILY HISTORY: Unknown. The patient is adopted. SOCIAL HISTORY: The patient denies tobacco use. She does not drink alcohol or use illicit drugs. She lives with her daughter. REVIEW OF SYSTEMS: A 10-point review of systems was performed and all the pertinent positives and negatives are in the HPI. All other systems are negative. PHYSICAL EXAM: General: Ms. Cheek is a well-developed, well-nourished, obese white woman who is sitting up in bed with her lower extremities elevated. She is in no acute distress. Vital signs are temperature 97.7, heart rate 85 , respiratory rate 15, oxygen saturation 98% on 2 L nasal cannula, blood pressure is 151/58. HEENT: Visual moore are grossly intact. Pupils equally round and reactive to light. Extraocular movements are intact. Sclerae without icterus. Oral mucous membranes dry. Pharynx is clear. Neck: Full range of motion. Trachea midline. Respiratory: Symmetrical chest expansion with no use of accessory muscles. Lungs are clear to auscultation. No rhonchi, wheezes , or rubs. Cardiovascular: Regular rate and rhythm. S1, S2 present. No murmurs, rubs, or gallops. No JVD. Abdomen: Obese. Bowel sounds in all quadrants. Abdomen is soft and nontender to palpation. No hepatosplenomegaly. Extremities: Skin is warm and smooth bilaterally. No edema in upper or lower extremities. No clubbing or cyanosis. Radial and pedal pulses are 2+ bilaterally. Surgical site to left lateral thigh is dressed. Dressing is clean , dry, and intact. Skin: small, round, flat rash diffusely on lower extremities and back. Neuro: The patient is awake, A and O x3. ASSESSMENT AND PLAN: Ms. Cheek is a 63-year-old female with a past medical history as described above, who presents to [facility] for an elective left total hip. The patient will be followed for the followin. Left total hip arthroplasty. Management per Ortho Team. 2. Diabetes mellitus. The patient will continue her glargine, but at a reduced dose of 50 units at 1400. She will be placed on lispro sliding scale a.c. She will be placed on consistent carbohydrate diet. 3. Hypertension. The patient states she is on Lasix p.r.n. for lower extremity swelling. Lasix will be held. Monitor blood pressure and lower extremity edema. 4. Hyperlipidemia. Continue lovastatin. 5. Hypothyroidism. Continue levothyroxine. 6. Chronic obstructive pulmonary disease. The patient does not use home O2 nor does she have regular inhalers. Her only home medication for COPD is Ventolin q.4 hours as needed. Continue Ventolin p.r.n. 7. Obstructive sleep apnea. The patient has brought her CPAP machine, which she will use overnight in the hospital. 8. Anxiety and depression. Alprazolam 1 mg p.o. t.i.d. as needed as at home. Continue duloxetine, continue prazosin. 9. DVT prophylaxis: Lovenox per Ortho Team. 10. Code status: Full code. TIME SPENT: Approximately 35 minutes were spent on this consultation, greater than half of that time was spent with the patient obtaining a history, performing a physical, and reviewing the plan of care. The case has been reviewed with my attending Dr. Medeiros who is in agreement with the plan. MELANIE HAYWOOD [id number]/CPS #: [id number] NELIDA
[2018-10-26] MEDS: Gabapentin CAP(*) 300 MG PO SCH ×2 (13:38→21:55)
[2018-10-26] MEDS: traMADol TAB* 50 MG PO SCH ×3 (13:39→23:48)
[2018-10-26] MEDS ORDERED: Insulin GLARGINE(*) 1 UNITS UNIT SUBCUT SCH (14:00)
[2018-10-26] MEDS ORDERED: ALPRAZOLAM 1 MG PO SCH (14:00)
[2018-10-26] MEDS ORDERED: INSULIN GLARGINE HUM REC ANLOG 150 UNIT SUBCUT SCH (14:00)
[2018-10-26] MEDS ORDERED: INSULIN GLARGINE HUM REC ANLOG 75 UNIT SUBCUT SCH (14:00)
--- NOTE | 2018-10-26 14:26 | OP ---
CC: [facility] * DATE OF OPERATION: 10/26/18 - ROOM #342 DATE OF : 53 SURGEON: Dr. Cespedes. ASSISTANTS: MELANIE Sanchez, bindery library technical assistant, and Marcelina registered nurse. ANESTHESIOLOGIST: Dr. Meño Stuart. ANESTHESIA: Endotracheal tube general. PRE-OP DIAGNOSIS: Severe arthritis of the left hip. POST-OP DIAGNOSIS: Severe arthritis of the left hip. OPERATIVE PROCEDURE: Left total hip replacement. COMPONENTS UTILIZED: Sandee total hip system with Continuum cup 48 mm outer diameter, 2 screws. The liner was elevated with the elevation located posteriorly and the liner was for a 32 mm head. On the femoral side, an M/L taper standard stem with a reduced neck, size 7.5. The head was a 32 mm head + 0. COMPLICATIONS: There were no complications. DRAINS: There were no drains. ESTIMATED BLOOD LOSS: 200 mL. REPLACEMENT: Crystalloid fluids. OPERATIVE INDICATION: Severe arthritis to the left hip that has been no longer responsive to nonoperative care. The x-rays showed [id number]. DESCRIPTION OF PROCEDURE: The patient was brought to the operating room and placed on the operating table in the supine position. Following the administration of the general anesthetic and insertion of an endotracheal tube, the patient was carefully placed into a right lateral position with several folded blankets underneath the right greater trochanter. The pelvis was then secured over the ASIS and the sacrum utilizing the hip positioner. The down side leg was checked to see that there was no pressure on the peroneal nerve at the fibular head and neck. An axillary roll was inserted. Blankets were placed between the legs and the groin was sealed off. The hip was then given a preliminary prep and then a final ChloraPrep from the left flank to the foot. After prepping, draping and carefully sealing off, we did our universal protocol time-out confirming Saima Cheek and plan for left total hip replacement. We all agreed and we proceeded. The hip was approached with a curving posterolateral skin incision going from the greater trochanter distally for 2 inches and curving proximally and posteriorly towards the posterior iliac spine for 2.5 to 3 inches. The skin and subcu divided. Hemostasis was checked and achieved utilizing electrocautery and soft tissues were divided down to the iliotibial fascia. The iliotibial fascia was opened up over the greater trochanter and then the fascia over the gluteus francisco j was opened proximally. A Charnley retractor was inserted. The greater trochanteric bursa was partially excised and then the soft tissues were pushed posteriorly on the posterosuperior aspect of the greater trochanter. A blunt Hohmann retractor went underneath the abductor, retracting it anteriorly. The piriformis and conjoint tendon were both marked with #2 Surgidac sutures and both were released from their piriformis fossa insertions and the superior arthrotomy went along the superior aspect of the distal piriformis tendon. Careful posterior approach to the hip was done with careful hemostasis. The hip had clear goldish synovial fluid. Once the posterior approach has been completed and the retractor for the abductors was placed under the gluteus minimus, superior capsulotomy was completed. The hip was dislocated without difficulty. The femoral neck was marked with the neck cutting guide for the Sandee hip system. The neck was cut approximately a fingerbreadth proximal to the lesser trochanter. The head and neck was removed. The head was completely renated on the superior side with osteophytes. There was a medial osteophyte which had to be excised with osteotomes. On the acetabulum, we had sharp Hohmann's anteriorly and posteriorly, blunt Hohmann's superiorly and inferiorly after removal of the medial osteophyte on the superior side of the transverse acetabular ligament, then reaming was done 43 to 48. At 48, we had nice bleeding subchondral and cancellous bone. The acetabulum was cleaned. A small cyst anteriorly was removed and some of the reamings were packed into the cyst. A 48 Continuum cup was impacted into position in 45 degrees of abduction, 20 degrees of anteversion and checked to see that it bottomed out nicely and was tight. Two screws were inserted. The liner was inserted so that the elevation was posteriorly. Attention was then turned to the femoral side. On the femoral side, we used the canal finder. The trochanteric reamer broaching was done 4 through 7.5. The 9 was too large. The 7.5 reduced neck M/L taper standard stem was inserted in 15 to 20 degrees of anteversion. A trial reduction was then done with the +0, 32 mm head with nice soft tissue tension. No tendency towards dislocation. Extension was full. IR and ER in extension did not show any impingement. The hip flexed to 90 degrees and allowed 30 to 40 degrees of IR and adduction prior to dislocation. The trunnion was then cleaned and a +0, 32 mm cobalt chrome head was impacted on to the clean trunnion. The hip was reduced and the closure was started. Hemostasis was checked and achieved utilizing electrocautery. We irrigated several times during the closure with pulsed saline and clean laps, swabbing the soft tissues , removing any lose adipose as well. I did not think drains were necessary. The hip surgery was bathed in 0.5% Marcaine with epinephrine 30 mL, 15 mL deep to the fascia chano, and another 15 mL in the skin and subcu. The iliotibial fascia closed with interrupted #1 Vicryls in [id number] fashion, more proximally we used 0 Vicryls, and then 2-0 Vicryl on the superficial subcu, and then crescencio on the skin. The skin was washed and dried and covered with Xeroform, gauze, ABD pad, and then paper tape. The patient was carefully returned to the recovery room in stable and satisfactory condition, having tolerated the procedure very well. [id number]/[facility] #: [id number] NELIDA
[2018-10-26] MEDS ORDERED: ceFAZolin 1 GM ADVAN(*) 1 GM in NS 0.9% 50 ML* 50 ML IVPB SCH (16:00)
[2018-10-26] MEDS: HYDROcodone/ACETAMIN 5-325 MG* 1 TAB PO PRN (17:05)
[2018-10-26] MEDS: Prazosin CAP* 1 MG PO SCH (17:05)
[2018-10-26] MEDS: Aspirin TAB* 325 MG PO SCH (17:05)
[2018-10-26] MEDS: Magnesium Oxide TAB* 400 MG PO SCH (17:05)
[2018-10-26] MEDS ORDERED: Methocarbamol TAB* 500 MG PO SCH (21:00)
[2018-10-26] MEDS: Vitamin B Complex TAB PO SCH (21:56)
[2018-10-26] MEDS: ceFAZolin 1 GM ADVAN(*) 1 GM in NS 0.9% 50 ML* 50 ML IVPB SCH (22:15)
[2018-10-27] MEDS: traMADol TAB* 50 MG PO SCH ×4 (04:52→22:55)
[2018-10-27] MEDS: HYDROcodone/ACETAMIN 5-325 MG* 1 TAB PO PRN ×3 (05:01→14:27)
[2018-10-27] MEDS: ceFAZolin 1 GM ADVAN(*) 1 GM in NS 0.9% 50 ML* 50 ML IVPB SCH ×2 (06:22→14:31)
[2018-10-27 07:30] LABS: ABS Basophils 0.1 10^3/ul (0-0.2); ABS Eosinophils 0 10^3/ul (0-0.6); ABS Lymphocytes 3.2 10^3/ul (1.0-4.8); ABS Monocytes 0.8 10^3/ul (0-0.8); ABS Neutrophils 7.4 10^3/ul (1.5-7.7); ABS Nucleated RBC 0 10^3/ul; Eosinophil % 0.1 %; Hematocrit 33 % (35-47); Hemoglobin 10.6 g/dl (12.0-16.0); Lymphocyte % 27.6 %; Mean Corpuscular HGB Conc 32 g/dl (31-36); Mean Corpuscular Hemoglobin 26 pg (27-31); Mean Corpuscular Volume 81 fL (80-97); Mean Platelet Volume 8.9 fL (7.4-10.4); Nucleated Red Blood Cells % 0.1; Platelet Count 215 10^3/ul (150-450); Red Blood Count 4.08 10^6/ul (4.00-5.40); Red Cell Distribution Width 16 % (10.5-15); White Blood Count 11.5 10^3/ul (3.5-10.8)
[2018-10-27 08:01] LABS: BUN/Creatinine Ratio 22.5 (8-20); EGFR African American 87.4 (>60); EGFR Non-African American 72.2 (>60); Potassium 4.1 mmol/L (3.5-5.0)
[2018-10-27] MEDS: Aspirin TAB* 325 MG PO SCH (08:50)
[2018-10-27] MEDS: Levothyroxine TAB* 50 MCG TAB PO SCH (08:51)
[2018-10-27] MEDS: DULoxetine DR CAP* 30 MG CAP.DR PO SCH (08:51)
[2018-10-27] MEDS: Insulin LISPRO* 1 UNITS UNIT SUBCUT SCH ×3 (08:51→17:55)
[2018-10-27] MEDS: Famotidine TAB* 20 MG PO SCH (08:51)
[2018-10-27] MEDS: Levothyroxine TAB* 100 MCG TAB PO SCH (08:51)
[2018-10-27] MEDS: Atorvastatin* 10 MG TAB PO SCH (08:51)
[2018-10-27] MEDS: Gabapentin CAP(*) 300 MG PO SCH ×3 (08:51→21:07)
[2018-10-27] MEDS: Cyanocobalamin TAB* 500 MCG PO SCH (08:51)
[2018-10-27] MEDS: Cholecalciferol TAB* 1000 UNITS PO SCH (08:51)
[2018-10-27] MEDS ORDERED: Enoxaparin(*) 30 MG/0.3 ML SYR SUBCUT ONE (09:00)
[2018-10-27] MEDS: Dicyclomine CAP* 10 MG PO SCH (09:42)
--- NOTE | 2018-10-27 10:01 | PN ---
Subjective Date of Service: 10/27/18 Interval History: Pt states that she is doing ok. She has been up walking with physical therapy and has been transferring from bed to chair with assistance. She states that her pain is 5/10 right now, but increases with activity. She states she found it difficult to sleep last night, due to weather/wind and pain. She did not use her CPAP last night. She is eating well. She denies CP, SOB, fever. She states that she had a sore throat last night, which is gone now, and a cough, which she believes is from intubation from surgery. She denies upper extremity pain, calf tenderness. Objective Active Medications: Acetaminophen (Tylenol Tab*) 650 mg PO Q6H PRN Hydrocodone Bitart/Acetaminophen ([place] 5-325 Tab*) 1 tab PO Q4H PRN Hydrocodone Bitart/Acetaminophen ([place] 5-325 Tab*) 2 tab PO Q4H PRN Albuterol (Ventolin Hfa Inhaler*) 2 puff INH Q4H PRN Alprazolam (Xanax Tab*) 1 mg PO TID PRN Aspirin (Aspirin Tab*) 325 mg PO DAILY RASHID Atorvastatin Calcium (Lipitor*) 10 mg PO QAM RASHID; Protocol Bisacodyl (Dulcolax Supp*) 10 mg ID DAILY PRN Cholecalciferol (Vitamin D Tab*) 5,000 units PO QAM RASHID Cyanocobalamin (Vitamin B12 Tab*) 1,000 mcg PO QAM RASHID Dextrose (D50w Syringe 50 Ml*) 12.5 gm IV PUSH .FOR FS < 60 - SS PRN Diclofenac Sodium (Voltaren 1% Gel (Nf)) 1 applic TOPICAL ONCE PRN; Protocol Dicyclomine HCl (Bentyl Cap*) 20 mg PO QAM RASHID Diphenhydramine HCl (Benadryl Iv*) 25 mg IV Q6H PRN Diphenhydramine HCl (Benadryl Po*) 25 mg PO Q6H PRN Docusate Sodium (Colace Cap*) 100 mg PO BID PRN Duloxetine HCl (Cymbalta Cap*) 30 mg PO QAM RASHID Enoxaparin Sodium (Lovenox(*)) 40 mg SUBCUT Q24H RASHID Famotidine (Pepcid Tab*) 20 mg PO QAM RASHID; Protocol Gabapentin (Neurontin Cap(*)) 600 mg PO TID RASHID Lactated Ringer's (Lactated Ringers 1000 Ml Bag*) 1,000 mls @ 100 mls/hr IV PER RATE RASHID Cefazolin Sodium 1 gm/ Sodium (Chloride) 50 mls @ 200 mls/hr IVPB 0600,1400, 2200 RASHID Insulin Glargine (Lantus(*)) 50 units SUBCUT Q24H RASHID Insulin Human Lispro (Humalog*) 0 units SUBCUT AC RASHID; Protocol Levothyroxine Sodium (Synthroid Tab*) 200 mcg PO QAM RASHID Levothyroxine Sodium (Synthroid Tab*) 50 mcg PO QAM RASHID Magnesium Hydroxide (Milk Of Magnesia Liq*) 30 ml PO Q6H PRN Magnesium Oxide (Magox 400 Tab*) 400 mg PO QPM RASHID Methocarbamol (Robaxin Tab*) 500 mg PO BID PRN Morphine Sulfate (Morphine Inj ((Syringe))*) 2 mg IV Q2H PRN Naproxen (Naprosyn Tab*) 500 mg PO BID PRN Ondansetron HCl (Zofran Inj*) 4 mg IV Q6H PRN Ondansetron HCl (Zofran Tab*) 4 mg PO Q6H PRN Prazosin HCl (Minipress Cap*) 1 mg PO QPM RASHID Tramadol HCl (Ultram*) 50 mg PO Q6H RASHID Vitamin B Complex/Vitamin E (B Complex-50*) 1 tab PO BID RASHID Zolpidem Tartrate (Ambien Tab*) 5 mg PO QPM PRN Vital Signs: Temp Pulse Resp BP Pulse Ox 98.3 F 72 16 119/54 93 10/27/18 04:54 10/27/18 04:54 10/27/18 09:43 10/27/18 04:54 10/27/18 04:54 Oxygen Devices in Use Now: None Appearance: Pt is an obeses 63yof sitting up in chair. She appears comfortable. She is in no acute distress. She is cooperative and appropriate. Eyes: No Scleral Icterus, PERRLA Ears/Nose/Mouth/Throat: NL Teeth, Lips, Gums, Clear Oropharnyx, Mucous Membranes Moist, - - Edentulous; pt has dentures with her Neck: NL Appearance and Movements; NL JVP, Trachea Midline Respiratory: Symmetrical Chest Expansion and Respiratory Effort, Clear to Auscultation Cardiovascular: NL Sounds; No Murmurs; No JVD, RRR, No Edema Abdominal: NL Sounds; No Tenderness; No Distention, No Hepatosplenomegaly Extremities: No Edema, No Clubbing, Cyanosis, - - L hip dressing is intact with pink-tinged exudate on bandage. Calves nontender to palpation, without edema. Radial, pedal pulses palpable. Skin: - - Pt has rash from self-reported bed bugs- no infestation or mites observed. Neurological: Alert and Oriented x 3, NL Sensation Result Diagrams: 10/27/18 07:18 10/27/18 07:18 Assess/Plan/Problems-Billing Assessment: Pt is a 63yof with PMHx DM II insulin dependent, HTN, HLD, hypothyroidism, LUIS E, COPD, anxiety, depression. - Patient Problems (1) S/P total hip arthroplasty Comment: -POD1, pain well controlled, PT tolerated well -Management per ortho (2) Diabetes Comment: -FS elevated, but trending down. Pt home dose of glargine is 150U at 1400 qd; she was given 50U yesterday. -Increase glargine to 75U schedule for today at 1400 -Continue SS lispro -FS AC (3) Hypertension Comment: -Lasix appears to be pts only rx for HTN, also reportedly used for LE edema; BP WNL, no LE edema -Continue to hold (4) LUIS E (obstructive sleep apnea) Comment: -Pt's CPAP is in room; encourage use at bedtime and with naps (5) COPD (chronic obstructive pulmonary disease) Comment: -Lung sounds clear, no signs of exacerbation -Continue prn albuterol (6) Hyperlipidemia Comment: -Continue atorvastatin (7) Hypothyroidism Comment: -Continue levothyroxine (8) Depression with anxiety Comment: -Continue duloxetine, prazosin, alprazolam (9) DVT prophylaxis Comment: -Per ortho: Lovenox (10) Full code status
--- NOTE | 2018-10-27 10:38 | PN ---
Progress Note - Progress Note Date of Service: 10/27/18 SOAP: Subjective: []Pt seen and examined at bedside today. She is having 5/10 pain after working with physical therapy. She denies CP, SOB, dizziness or nausea. Has bed bugs at home, her daughter is cleaning her home before her return. Reports she does not have adequate help at home until Thursday and desires DC home Thursday. Objective: []General: Well appearing, NAD sitting in chair RLE: Right hip dressing with bloody drainage, dressing changed, incision is CDI without active bleeding, the dressing was saturated with blood. Thigh is soft, DF/PF intact. DP2+ Calves supple and nontender without erythema, edema or palpable cords Assessment: []POD 1 sp RTH 10/26 Dr Cespedes Plan: []WBAT PT/OT posterior hip precautions lovenox in house 30 mg today, 40 mg qd thereafter ASA 325 qd will be her DVT prophylaxis at discharge, it can be started simultaneously with the lovenox in house Vital Signs Temp 98.3 F 10/27/18 04:54 Pulse 72 10/27/18 04:54 Resp 16 10/27/18 09:43 BP 119/54 10/27/18 04:54 Pulse Ox 93 10/27/18 04:54 Intake & Output 10/26/18 10/27/18 10/27/18 18:59 06:59 18:59 Intake Total 2530 1740 Output Total 1250 950 Balance 1280 790 Weight 241 lb 3.2 oz Intake: IV Fluids 2000 980 LR 2000 980 Oral 530 760 Output: Hsu 1250 950 Laboratory Last Values WBC 11.5 10^3/ul (3.5-10.8) H 10/27/18 07:18 RBC 4.08 10^6/ul (4.00-5.40) 10/27/18 07:18 Hgb 10.6 g/dl (12.0-16.0) L 10/27/18 07:18 Hct 33 % (35-47) L 10/27/18 07:18 MCV 81 fL (80-97) 10/27/18 07:18 MCH 26 pg (27-31) L 10/27/18 07:18 MCHC 32 g/dl (31-36) 10/27/18 07:18 RDW 16 % (10.5-15) H 10/27/18 07:18 Plt Count 215 10^3/ul (150-450) 10/27/18 07:18 MPV 8.9 fL (7.4-10.4) 10/27/18 07:18 Neut % (Auto) 64.0 % 10/27/18 07:18 Lymph % (Auto) 27.6 % 10/27/18 07:18 Perry % (Auto) 7.3 % 10/27/18 07:18 Eos % (Auto) 0.1 % 10/27/18 07:18 Baso % (Auto) 1.0 % 10/27/18 07:18 Absolute Neuts (auto) 7.4 10^3/ul (1.5-7.7) 10/27/18 07:18 Absolute Lymphs (auto) 3.2 10^3/ul (1.0-4.8) 10/27/18 07:18 Absolute Monos (auto) 0.8 10^3/ul (0-0.8) 10/27/18 07:18 Absolute Eos (auto) 0 10^3/ul (0-0.6) 10/27/18 07:18 Absolute Basos (auto) 0.1 10^3/ul (0-0.2) 10/27/18 07:18 Absolute Nucleated RBC 0 10^3/ul 10/27/18 07:18 Nucleated RBC % 0.1 10/27/18 07:18 Sodium 138 mmol/L (135-145) 10/27/18 07:18 Potassium 4.1 mmol/L (3.5-5.0) 10/27/18 07:18 Chloride 103 mmol/L (101-111) 10/27/18 07:18 Carbon Dioxide 28 mmol/L (22-32) 10/27/18 07:18 Anion Gap 7 mmol/L (2-11) 10/27/18 07:18 BUN 18 mg/dL (6-24) 10/27/18 07:18 Creatinine 0.80 mg/dL (0.51-0.95) 10/27/18 07:18 Est GFR ( Amer) 87.4 (>60) 10/27/18 07:18 Est GFR (Non-Af Amer) 72.2 (>60) 10/27/18 07:18 BUN/Creatinine Ratio 22.5 (8-20) H 10/27/18 07:18 Glucose 169 mg/dL (70-100) H 10/27/18 07:18 POC Glucose (mg/dL) 158 mg/dL (70-100) H 10/27/18 08:04 Calcium 9.0 mg/dL (8.6-10.3) 10/27/18 07:18
--- NOTE | 2018-10-27 11:56 | PN ---
Progress Note - Progress Note Date of Service: 10/27/18 Note: POD #1. Intake and output 4270 and 2200 ml respectively. Awake, cooperative and breathing easily. Dressing left hip has partial bloody saturation. Left hip has active flexion, extension, IR and ER. Left ankle active DF, PF, IN and EV. X-ray left hip after surgery 10/26 was all satisfactory. Patient seen today at 0700. IMP: Doing well and stable. Plans: Up with walker, drinking and using the incentive spirometer. She will stay in touch with the nursing staff regarding pain management.
[2018-10-27] MEDS: Vitamin B Complex TAB PO SCH ×2 (12:30→21:07)
[2018-10-27] MEDS ORDERED: Insulin GLARGINE(*) 1 UNITS UNIT SUBCUT SCH (14:00)
[2018-10-27] MEDS: Magnesium Oxide TAB* 400 MG PO SCH (17:53)
[2018-10-27] MEDS: Prazosin CAP* 1 MG PO SCH (17:53)
[2018-10-28] MEDS: HYDROcodone/ACETAMIN 5-325 MG* 1 TAB PO PRN (04:01)
[2018-10-28] MEDS: traMADol TAB* 50 MG PO SCH ×4 (05:39→22:53)
[2018-10-28 06:02] LABS: Hematocrit 31 % (35-47); Hemoglobin 10.1 g/dl (12.0-16.0); Mean Corpuscular HGB Conc 33 g/dl (31-36); Mean Corpuscular Hemoglobin 27 pg (27-31); Mean Corpuscular Volume 82 fL (80-97); Mean Platelet Volume 8.9 fL (7.4-10.4); Platelet Count 176 10^3/ul (150-450); Red Blood Count 3.75 10^6/ul (4.00-5.40); Red Cell Distribution Width 16 % (10.5-15); White Blood Count 9.8 10^3/ul (3.5-10.8)
[2018-10-28 06:24] LABS: BUN/Creatinine Ratio 24.7 (8-20); Calcium 8.7 mg/dL (8.6-10.3); EGFR African American 77.3 (>60); EGFR Non-African American 63.9 (>60); Potassium 3.9 mmol/L (3.5-5.0)
[2018-10-28] MEDS: Vitamin B Complex TAB PO SCH ×2 (08:20→20:11)
[2018-10-28] MEDS: Aspirin TAB* 325 MG PO SCH (08:20)
[2018-10-28] MEDS: Dicyclomine CAP* 10 MG PO SCH (08:20)
[2018-10-28] MEDS: Gabapentin CAP(*) 300 MG PO SCH ×3 (08:20→20:11)
[2018-10-28] MEDS: Cyanocobalamin TAB* 500 MCG PO SCH (08:20)
[2018-10-28] MEDS: Atorvastatin* 10 MG TAB PO SCH (08:21)
[2018-10-28] MEDS: Levothyroxine TAB* 100 MCG TAB PO SCH (08:21)
[2018-10-28] MEDS: Levothyroxine TAB* 50 MCG TAB PO SCH (08:21)
[2018-10-28] MEDS: DULoxetine DR CAP* 30 MG CAP.DR PO SCH (08:21)
[2018-10-28] MEDS: Famotidine TAB* 20 MG PO SCH (08:21)
[2018-10-28] MEDS: Enoxaparin(*) 40 MG/0.4 ML SYR SUBCUT SCH (08:21)
[2018-10-28] MEDS: Cholecalciferol TAB* 1000 UNITS PO SCH (08:21)
[2018-10-28] MEDS: Insulin LISPRO* 1 UNITS UNIT SUBCUT SCH ×3 (08:23→17:03)
[2018-10-28] MEDS ORDERED: Bisacodyl SUPP* 10 MG SUPP PR PRN (10:34)
--- NOTE | 2018-10-28 11:24 | PN ---
Progress Note - Progress Note Date of Service: 10/28/18 SOAP: Subjective: []Pt seen at bedside. She is feeling very well without CP, SOB, dizziness or nausea. Her Right hip pain is well controlled. She is doing well with PT. She does not have help at home until tomorrow. Objective: [] General: Well appearing, NAD sitting in chair RLE: Right hip dressing CDI, no bloody discharge today, incision is CDI. Thigh is soft, DF/PF intact. DP2+. Calves supple and nontender without erythema, edema or palpable cords Assessment: []POD 2 sp RTH 10/26 Dr Cespedes Plan: []WBAT PT/OT posterior hip precautions lovenox in house 40 mg qd until discharge ASA 325 qd will be her DVT prophylaxis at discharge, it can be given simultaneously with the lovenox in house Bed bugs at home, isolation discontinued in house per protocol DC to home tomorrow, daughter will be available for assistance at home Vital Signs Temp 98.3 F 10/28/18 07:22 Pulse 77 10/28/18 07:22 Resp 16 10/28/18 10:59 BP 119/52 10/28/18 07:22 Pulse Ox 93 10/28/18 07:22 Intake & Output 10/27/18 10/28/18 10/28/18 18:59 06:59 18:59 Intake Total 1845 1040 360 Output Total 300 800 Balance 1545 240 360 Weight 245 lb 11.2 oz Intake: IV Fluids 1501 LR 1501 IVPB 104 ABX - CEFAZOLIN 104 Oral 240 1040 360 Output: Urine 300 800 Other: Estimated Void Small Medium # Bowel Movements 1 1 Estimated Stool Amount Medium Medium # Voids 1 1 Laboratory Last Values WBC 9.8 10^3/ul (3.5-10.8) 10/28/18 05:26 RBC 3.75 10^6/ul (4.00-5.40) L 10/28/18 05:26 Hgb 10.1 g/dl (12.0-16.0) L 10/28/18 05:26 Hct 31 % (35-47) L 10/28/18 05:26 MCV 82 fL (80-97) 10/28/18 05:26 MCH 27 pg (27-31) 10/28/18 05:26 MCHC 33 g/dl (31-36) 10/28/18 05:26 RDW 16 % (10.5-15) H 10/28/18 05:26 Plt Count 176 10^3/ul (150-450) 10/28/18 05:26 MPV 8.9 fL (7.4-10.4) 10/28/18 05:26 Neut % (Auto) 64.0 % 10/27/18 07:18 Lymph % (Auto) 27.6 % 10/27/18 07:18 Grand % (Auto) 7.3 % 10/27/18 07:18 Eos % (Auto) 0.1 % 10/27/18 07:18 Baso % (Auto) 1.0 % 10/27/18 07:18 Absolute Neuts (auto) 7.4 10^3/ul (1.5-7.7) 10/27/18 07:18 Absolute Lymphs (auto) 3.2 10^3/ul (1.0-4.8) 10/27/18 07:18 Absolute Monos (auto) 0.8 10^3/ul (0-0.8) 10/27/18 07:18 Absolute Eos (auto) 0 10^3/ul (0-0.6) 10/27/18 07:18 Absolute Basos (auto) 0.1 10^3/ul (0-0.2) 10/27/18 07:18 Absolute Nucleated RBC 0 10^3/ul 10/27/18 07:18 Nucleated RBC % 0.1 10/27/18 07:18 Sodium 138 mmol/L (135-145) 10/28/18 05:26 Potassium 3.9 mmol/L (3.5-5.0) 10/28/18 05:26 Chloride 102 mmol/L (101-111) 10/28/18 05:26 Carbon Dioxide 30 mmol/L (22-32) 10/28/18 05:26 Anion Gap 6 mmol/L (2-11) 10/28/18 05:26 BUN 22 mg/dL (6-24) 10/28/18 05:26 Creatinine 0.89 mg/dL (0.51-0.95) 10/28/18 05:26 Est GFR ( Amer) 77.3 (>60) 10/28/18 05:26 Est GFR (Non-Af Amer) 63.9 (>60) 10/28/18 05:26 BUN/Creatinine Ratio 24.7 (8-20) H 10/28/18 05:26 Glucose 233 mg/dL (70-100) H 10/28/18 05:26 POC Glucose (mg/dL) 192 mg/dL (70-100) H 10/27/18 17:31 Calcium 8.7 mg/dL (8.6-10.3) 10/28/18 05:26
[2018-10-28] MEDS ORDERED: Insulin GLARGINE(*) 1 UNITS UNIT SUBCUT SCH (14:00)
--- NOTE | 2018-10-28 14:34 | PN ---
Subjective Date of Service: 10/28/18 Interval History: Pt states that she is feeling well. She had a better night's sleep last night, but still did not use her CPAP. She has been up with physical therapy, and she reports having tolerated it well. According to her daily weights, her weight has increased by approximately 10#. We discussed Lasix use, and pt states that she uses this med for LE edema, which she does not believe she has right now. Her blood sugars have been elevated throughout her stay. Pt denies CP, SOB, fever/chills, cough, abd pain, n/v/d/c, pain or swelling in LE, calf tenderness. Objective Active Medications: Acetaminophen (Tylenol Tab*) 650 mg PO Q6H PRN Hydrocodone Bitart/Acetaminophen ([place] 5-325 Tab*) 1 tab PO Q4H PRN Hydrocodone Bitart/Acetaminophen ([place] 5-325 Tab*) 2 tab PO Q4H PRN Albuterol ([place]olin Hfa Inhaler*) 2 puff INH Q4H PRN Alprazolam (Xanax Tab*) 1 mg PO TID PRN Aspirin (Aspirin Tab*) 325 mg PO DAILY RASHID Atorvastatin Calcium (Lipitor*) 10 mg PO QAM RASHID; Protocol Bisacodyl (Dulcolax Supp*) 10 mg [place] DAILY PRN Cholecalciferol (Vitamin D Tab*) 5,000 units PO QAM RASHID Cyanocobalamin (Vitamin B12 Tab*) 1,000 mcg PO QAM RASHID Dextrose (D50w Syringe 50 Ml*) 12.5 gm IV PUSH .FOR FS < 60 - SS PRN Diclofenac Sodium (Voltaren 1% Gel (Nf)) 1 applic TOPICAL ONCE PRN; Protocol Dicyclomine HCl (Bentyl Cap*) 20 mg PO QAM RASHID Diphenhydramine HCl (Benadryl Iv*) 25 mg IV Q6H PRN Diphenhydramine HCl (Benadryl Po*) 25 mg PO Q6H PRN Docusate Sodium (Colace Cap*) 100 mg PO BID PRN Duloxetine HCl (Cymbalta Cap*) 30 mg PO QAM RASHID Enoxaparin Sodium (Lovenox(*)) 40 mg SUBCUT Q24H RASHID Famotidine (Pepcid Tab*) 20 mg PO QAM RASHID; Protocol Gabapentin (Neurontin Cap(*)) 600 mg PO TID RASHID Insulin Glargine (Lantus(*)) 125 units SUBCUT Q24H RASHID Insulin Human Lispro (Humalog*) 0 units SUBCUT AC RASHID; Protocol Levothyroxine Sodium (Synthroid Tab*) 200 mcg PO QAM RASHID Levothyroxine Sodium (Synthroid Tab*) 50 mcg PO QAM RASHID Magnesium Hydroxide (Milk Of Magnesia Liq*) 30 ml PO Q6H PRN Magnesium Oxide (Magox 400 Tab*) 400 mg PO QPM RASHID Methocarbamol (Robaxin Tab*) 500 mg PO BID PRN Morphine Sulfate (Morphine Inj ((Syringe))*) 2 mg IV Q2H PRN Naproxen (Naprosyn Tab*) 500 mg PO BID PRN Ondansetron HCl (Zofran Inj*) 4 mg IV Q6H PRN Ondansetron HCl (Zofran Tab*) 4 mg PO Q6H PRN Prazosin HCl (Minipress Cap*) 1 mg PO QPM RASHID Tramadol HCl (Ultram*) 50 mg PO Q6H RASHID Vitamin B Complex/Vitamin E (B Complex-50*) 1 tab PO BID RASHID Zolpidem Tartrate (Ambien Tab*) 5 mg PO QPM PRN Vital Signs - 8 hr 10/28/18 10/28/18 10/28/18 06:40 07:22 08:20 Temperature 98.3 F Pulse Rate 77 Respiratory 16 16 16 Rate Blood Pressure 119/52 (mmHg) O2 Sat by Pulse 93 Oximetry 10/28/18 10/28/18 10/28/18 08:30 10:59 11:55 Temperature 98.2 F Pulse Rate 88 Respiratory 16 16 16 Rate Blood Pressure 117/57 (mmHg) O2 Sat by Pulse 92 Oximetry 10/28/18 13:50 Temperature Pulse Rate Respiratory 16 Rate Blood Pressure (mmHg) O2 Sat by Pulse Oximetry Oxygen Devices in Use Now: None Appearance: Pt is sitting up in bed, in no acute distress. Eyes: No Scleral Icterus, PERRLA Ears/Nose/Mouth/Throat: Clear Oropharnyx, Mucous Membranes Moist, - - Edentulous ; teeth, gums WNL Neck: NL Appearance and Movements; NL JVP, Trachea Midline Respiratory: Symmetrical Chest Expansion and Respiratory Effort, Clear to Auscultation Cardiovascular: NL Sounds; No Murmurs; No JVD, RRR Abdominal: NL Sounds; No Tenderness; No Distention, No Hepatosplenomegaly Extremities: No Clubbing, Cyanosis, - - B/l LE with trace edema Neurological: Alert and Oriented x 3 Result Diagrams: 10/29/18 05:53 10/28/18 05:26 Assess/Plan/Problems-Billing Assessment: Pt is a 63yof with PMHx DM II insulin dependent, HTN, HLD, hypothyroidism, LUIS E, COPD, anxiety, depression. - Patient Problems (1) S/P total hip arthroplasty Comment: -POD2, pain well controlled, PT tolerated well -Management per ortho (2) Diabetes Comment: -FS remain elevated. Pt home dose of glargine is 150U at 1400 qd; she was given 75U yesterday. -Increase glargine to 125U schedule for today at 1400 -Continue SS lispro -FS AC (3) Hypertension Comment: -Lasix appears to be pts only rx for HTN, also reportedly used for LE edema; BP WNL but on lower end of normal, trace LE edema, 10# weight gain -Weight recheck still shows appx 10# wt increase -Continue to hold Lasix (4) LUIS E (obstructive sleep apnea) Comment: -Pt's CPAP is in room; encourage use at bedtime and with naps (5) COPD (chronic obstructive pulmonary disease) Comment: -Lung sounds clear, no signs of exacerbation -Continue prn albuterol (6) Hyperlipidemia Comment: -Continue atorvastatin (7) Hypothyroidism Comment: -Continue levothyroxine (8) Depression with anxiety Comment: -Continue duloxetine, prazosin, alprazolam (9) DVT prophylaxis Comment: -Per ortho: Lovenox (10) Full code status
[2018-10-28] MEDS: Prazosin CAP* 1 MG PO SCH (17:03)
[2018-10-28] MEDS: Magnesium Oxide TAB* 400 MG PO SCH (17:07)
[2018-10-29] MEDS: traMADol TAB* 50 MG PO SCH ×2 (05:18→11:05)
[2018-10-29 06:06] LABS: Hematocrit 32 % (35-47); Hemoglobin 10.2 g/dl (12.0-16.0); Mean Platelet Volume 8.8 fL (7.4-10.4); Platelet Count 198 10^3/ul (150-450)
[2018-10-29] MEDS: Insulin LISPRO* 1 UNITS UNIT SUBCUT SCH (08:20)
[2018-10-29] MEDS: Levothyroxine TAB* 50 MCG TAB PO SCH (09:22)
[2018-10-29] MEDS: Famotidine TAB* 20 MG PO SCH (09:22)
[2018-10-29] MEDS: Cyanocobalamin TAB* 500 MCG PO SCH (09:22)
[2018-10-29] MEDS: Vitamin B Complex TAB PO SCH (09:22)
[2018-10-29] MEDS: DULoxetine DR CAP* 30 MG CAP.DR PO SCH (09:22)
[2018-10-29] MEDS: Levothyroxine TAB* 100 MCG TAB PO SCH (09:22)
[2018-10-29] MEDS: Aspirin TAB* 325 MG PO SCH (09:22)
[2018-10-29] MEDS: Atorvastatin* 10 MG TAB PO SCH (09:22)
[2018-10-29] MEDS: Dicyclomine CAP* 10 MG PO SCH (09:22)
[2018-10-29] MEDS: Cholecalciferol TAB* 1000 UNITS PO SCH (09:22)
[2018-10-29] MEDS: Gabapentin CAP(*) 300 MG PO SCH (09:23)
[2018-10-29] MEDS: Enoxaparin(*) 40 MG/0.4 ML SYR SUBCUT SCH (09:26)
[2018-10-29 10:26] VITALS: BP 120/42
--- NOTE | 2018-10-29 10:33 | PN ---
Progress Note - Progress Note Date of Service: 10/29/18 SOAP: Subjective: []Patient seen at bedside, doing well. She denies SOB, CP, palpitations. She feels ready to go home today. Objective: [] Vital Signs Temp 98.0 F 10/29/18 08:06 Pulse 80 10/29/18 08:06 Resp 16 10/29/18 09:23 BP 120/42 10/29/18 08:06 Pulse Ox 94 10/29/18 08:06 Intake & Output 10/28/18 10/29/18 10/29/18 18:59 06:59 18:59 Intake Total 960 400 240 Output Total 300 1000 300 Balance 660 -600 -60 Weight 245 lb 14.4 oz 247 lb 1.6 oz Intake: Oral 960 400 240 Output: Urine 300 1000 300 Other: Estimated Void Small # Bowel Movements 1 1 Estimated Stool Amount Small Medium # Voids 1 Laboratory Results - last 24 hr 10/28/18 10/28/18 10/28/18 11:04 16:57 22:56 Hgb Hct Plt Count MPV POC Glucose (mg/dL) 317 H 129 H 229 H 10/29/18 10/29/18 05:53 07:31 Hgb 10.2 L Hct 32 L Plt Count 198 MPV 8.8 POC Glucose (mg/dL) 122 H Left hip dressings changed, no drainage Wound benign left hip calf NT and soft +Df left ankle sensation remains intact Assessment: []s/p LTH arthroplasty POD #3 Plan: []Discharge home today Continue ASA 325 Qd VNS, crescencio out 2 weeks post op Follow up with Dr. Cespedes as scheduled 3-4 weeks
--- NOTE | 2018-10-29 16:15 | DS ---
AMENDED REPORT NOW INCLUDES COSIGNER DESIGNATION DISCHARGE SUMMARY: DATE OF ADMISSION: 10/26/18 DATE OF DISCHARGE: 10/29/18 ATTENDING PHYSICIAN: Dr. Vikram Cespedes.* (DICTATED BY MELANIE GRIMM) ADMISSION DIAGNOSIS: Severe osteoarthritis, left hip. DISCHARGE DIAGNOSIS: Severe osteoarthritis, left hip. SURGERY PERFORMED: Left total hip arthroplasty. HOSPITAL COURSE: Patient is a 63-year-old female who failed conservative management with antiinflammatories, physical therapy. Her plain films revealed [id number] degenerative arthritis of the left hip joint. She elected to proceed with surgical intervention and was taken to the operating room under the care of Dr. Vikram Cespedes on 10/26/18. She tolerated the procedure well and left the operating room in stable condition. Postoperatively, the patient progressed satisfactorily with the physical therapy and occupational therapy goals, maintaining full weightbearing on the left lower extremity without difficulties. She was able to maintain total hip precautions and had no postoperative medical or orthopedic complications. Once she obtained help at home, she was able to be discharged safely. CONDITION ON DISCHARGE: Her temperature is 98.0, pulse 80, respiratory rate 18 , O2 saturation 94% on room air, blood pressure 120/42. Her left hip incision showed no drainage or evidence of infection. She has active dorsiflexion of the left ankle. Her calf is nontender and soft. Her neurovascular status is intact distally. PLAN: Discharged to home on 10/29/18. She will continue to bear weight as tolerated on the left lower extremity. She will use aspirin 325 mg p.o. daily for DVT prophylaxis. She felt that the [place] was not effective and she uses tramadol for baseline pain management and would like to continue with her current prescription which she has at home. She will follow up in the office with Dr. Cespedes in roughly 3 to 4 weeks. She will have visiting nursing services remove her crescencio from the left hip incision in roughly 2 weeks. All questions were answered. MELANIE GRIMM [id number]/[facility] #: [id number] MTDD
== END 2018-10-29 12:06 | disposition home health service (06) | DRG 301 ==
LOC: AA 10-26 05:27 → SSU 10-26 12:35
PROVIDERS: ADMIT Orthopaedic Surgery; ATTEND Orthopaedic Surgery
PROC: 0SRB01A Replacement of Left Hip Joint with Metal Synthetic Substitute, Uncemented, Open Approach (ICD-10-PCS; principal; 2018-10-26 07:30)
DX: M16.12 Unilateral primary osteoarthritis, left hip (principal); Z68.41 Body mass index [BMI] 40.0-44.9, adult; J44.9 Chronic obstructive pulmonary disease, unspecified; Z96.641 Presence of right artificial hip joint; E78.5 Hyperlipidemia, unspecified; I10 Essential (primary) hypertension; E11.9 Type 2 diabetes mellitus without complications; G47.33 Obstructive sleep apnea (adult) (pediatric); K75.81 Nonalcoholic steatohepatitis (NASH); E89.0 Postprocedural hypothyroidism; G89.29 Other chronic pain; M25.752 Osteophyte, left hip; F41.8 Other specified anxiety disorders; E66.9 Obesity, unspecified; Z90.711 Acquired absence of uterus with remaining cervical stump; Z88.8 Allergy status to other drugs, medicaments and biological substances; Z88.6 Allergy status to analgesic agent; Z91.041 Radiographic dye allergy status; Z90.49 Acquired absence of other specified parts of digestive tract; Z87.891 Personal history of nicotine dependence; Z91.81 History of falling
CPT/HCPCS: 36415; 80048; 85014; 85018; 85025; 85027; 85049; 88304; 88311; A9270-GY; C1713; C1776; J0690; J1100; J1170; J1650; J1885; J2250; J2405; J2704; J3010; J3490

== ENCOUNTER 2024-01-19 09:55 | Observation (INO) ==
[2024-01-19 13:04] LABS: ABS Basophils 0.1 10^3/uL (0.0-0.1); ABS Eosinophils 0.4 10^3/uL (0.0-0.5); ABS Lymphocytes 3.2 10^3/uL (1.0-4.8); ABS Monocytes 0.8 10^3/uL (0.0-0.9); ABS Neutrophils 5.1 10^3/uL (1.5-7.6); ABS Nucleated RBC 0.01 10^3/ul; Eosinophil % 3.7 %; Hematocrit 37.3 % (35-45); Hemoglobin 12.5 g/dL (11.5-14.3); Lymphocyte % 33.8 %; Mean Corpuscular Hemoglobin 28.8 pg (27-33); Mean Corpuscular Hgb Conc 33.4 g/dL (31-36); Mean Corpuscular Volume 86.2 fL (80-97); Nucleated Red Blood Cells % 0.1 %/100WBC (0.0-0.8); Platelet Count 245 10^3/uL (150-450); Red Blood Count 4.33 10^6/uL (3.63-4.92); Red Cell Distribution Width 14.2 % (12-17); White Blood Count 9.6 10^3/uL (3.8-11.8)
[2024-01-19 13:41] LABS: Albumin 4.3 g/dL (3.2-5.2); Albumin/Globulin Ratio 1.4 (1-3); C Reactive Protein 10.92 mg/L (<8.01); Calcium 9.9 mg/dL (8.6-10.3); Creatinine, Serum 1.73 mg/dL (0.51-0.95); Globulin 3.1 g/dL (2-4); Magnesium 2.4 mg/dL (1.9-2.7); Phosphorus 3.7 mg/dL (2.5-5.0); Potassium 6.3 mmol/L (3.5-5.0); Total Bilirubin 0.6 mg/dL (0.2-1.0); Total Protein 7.4 g/dL (6.4-8.9); eGFR CKD-EPI 31.6 (>60)
[2024-01-19 13:57] LABS: Urine Appearance Turbid; Urine Bilirubin Negative (Negative); Urine Blood Negative (Negative); Urine Color Yellow; Urine Glucose Negative (Negative); Urine Ketones Negative (Negative); Urine Nitrite Negative (Negative); Urine Protein Negative (Negative); Urine Specific Gravity 1.014 (1.002-1.030); Urine Urobilinogen Negative (Negative); Urine pH 7.5 (5.0-8.0)
[2024-01-19] MEDS: NS 0.9% 1000 ml BAG 1,000 ML IV ONE (14:00)
[2024-01-19 14:24] LABS: Calcium 9.7 mg/dL (8.6-10.3); Creatinine, Serum 1.65 mg/dL (0.51-0.95); Potassium 5.4 mmol/L (3.5-5.0); eGFR CKD-EPI 33.4 (>60)
[2024-01-19 14:27] LABS: High Sensitivity Troponin 1 Hr 3 pg/mL (<15)
[2024-01-19 14:32] LABS: Urine Bacteria Absent /HPF (Absent); Urine Red Blood Cell Trace(0-2/hpf) /HPF (0-Trace); Urine Squamous Epithelial Cell Present /HPF (Absent); Urine White Blood Cell 2+(11-20/hpf) /HPF (0-Trace)
[2024-01-19] MEDS: Iodixanol (CONTRAST) 320 MG/ML 100 ML SDV IV ONE (16:29)
[2024-01-20] MEDS: SODIUM ZIRCONIUM CYCLOSILICATE 10 GM PACKET PO ONE (01:38)
[2024-01-20] MEDS: Lactated Ringers 1000 ml BAG 1,000 ML IV SCH (01:42)
[2024-01-20 02:21] LABS: Urine Benzodiazepine Screen Presumptive Positive (None Detect); Urine Cannabinoids Screen None Detected (None Detect); Urine Opiates Screen None Detected (None Detect)
[2024-01-20] MEDS ORDERED: Dextrose 50% Syringe 50 ml 25 GM/50 ML SYRINGE IV PUSH PRN (04:22)
[2024-01-20 06:13] LABS: Calcium 9.2 mg/dL (8.6-10.3); Creatinine, Serum 1.09 mg/dL (0.51-0.95); Magnesium 1.9 mg/dL (1.9-2.7); Potassium 4.4 mmol/L (3.5-5.0)
[2024-01-20 06:39] LABS: TSH Ultra Thyroid Stim Horm 10.16 mcIU/mL (0.34-5.60)
[2024-01-20 06:50] LABS: Folate 10.95 ng/mL (5.90-24.80)
[2024-01-20] MEDS: Magnesium Sulfate IV 1GM/100ML 1 GM/100 ML BAG IV ONE (08:16)
[2024-01-20] MEDS: DULoxetine DR 60 mg CAP PO SCH (08:19)
[2024-01-20] MEDS: Enoxaparin 40 MG/0.4 ML SYR SUBCUT SCH (08:20)
[2024-01-20] MEDS: Lactated Ringers 1000 ml BAG 1,000 ML IV ONE (13:05)
[2024-01-20] MEDS: cefTRIAXone 1 gm/50 mL D5W 1 GM/50 ML BAG IV SCH (16:27)
[2024-01-21 05:45] LABS: ABS Basophils 0.1 10^3/uL (0.0-0.1); ABS Eosinophils 0.2 10^3/uL (0.0-0.5); ABS Lymphocytes 2.4 10^3/uL (1.0-4.8); ABS Monocytes 0.6 10^3/uL (0.0-0.9); ABS Neutrophils 4.1 10^3/uL (1.5-7.6); ABS Nucleated RBC 0.01 10^3/ul; Eosinophil % 2.8 %; Hematocrit 37.4 % (35-45); Hemoglobin 12.4 g/dL (11.5-14.3); Lymphocyte % 32.9 %; Mean Corpuscular Hemoglobin 28.8 pg (27-33); Mean Corpuscular Hgb Conc 33.2 g/dL (31-36); Mean Corpuscular Volume 86.8 fL (80-97); Mean Platelet Volume 8.4 fL (7.5-11.2); Nucleated Red Blood Cells % 0.1 %/100WBC (0.0-0.8); Platelet Count 191 10^3/uL (150-450); Red Blood Count 4.31 10^6/uL (3.63-4.92); White Blood Count 7.3 10^3/uL (3.8-11.8)
[2024-01-21 06:28] LABS: Magnesium 1.8 mg/dL (1.9-2.7); Potassium 3.8 mmol/L (3.5-5.0)
[2024-01-21] MEDS: Magnesium Sulfate 2 gm BAG 2 GM/50 ML BAG IVPB ONE (09:47)
[2024-01-21] MEDS: Potassium Chlor 20 meq TAB.ER PO ONE (09:47)
[2024-01-21 12:44] VITALS: BP 147/58
== END 2024-01-21 15:00 | disposition home or self-care (01) ==
LOC: EDHOLD 09:55 → ED 09:55 → SUATTDRO 19:40 → MED 01-20 13:28
PROVIDERS: ADMIT Student in an Organized Health Care Education/Training Program; ATTEND Internal Medicine